=== PATIENT | male | born 1970 | race Hispanic/Latino ===

== ENCOUNTER 2016-10-16 17:49 | Inpatient (IN) | payer MEDICAID ==
[2016-10-16 17:49] VITALS: BMI 33.5
[2016-10-16] MEDS ORDERED: Heparin25000 units/250ml 1/2NS 250 ML IV PRN (18:02)
--- NOTE | 2016-10-16 18:20 | ED PDOC ---
Arrival/HPI - General Chief Complaint: Shortness Of Breath Time Seen by Provider: 10/16/16 17:54 Historian: Patient - History of Present Illness Narrative History of Present Illness (Text): 10/16/16 18:12 A 46 year old male, whose past medical history includes DVT, PE, alcohol and cocaine abuse, presents to the emergency department complaining of shortness of breath since yesterday. Patient states worsening shortness of breath upon walking. He also reports he is on Coumadin, but his INR has been too low. Patient states he has abdominal pain, blurred vision, dizziness but denies any vomiting, dysuria, hematuria, hematochezia or any other complaints at this time. He reports his last cocaine use being 5 days ago. Time/Duration: 24 hours Symptom Onset: Sudden Symptom Course: Unchanged Activities at Onset: Rest Modifying Factors (Text): none Context: Home Associated Symptoms (Text): dizziness, blurry vision, abdominal pain Past Medical History - Provider Review Nursing Documentation Reviewed: Yes - Infectious Disease Hx of Infectious Diseases: None - Tetanus Immunization Tetanus Immunization: Unknown - Cardiac Hx Cardiac Disorders: Yes Hx Peripheral Vascular Disease: Yes Other/Comment: B/L PE and L Leg blood clot - Pulmonary Hx Respiratory Disorders: Yes Hx Pulmonary Embolism: Yes (03/27/16) - Neurological Hx Neurological Disorder: Yes (SYNCOPE 03-25-16) - HEENT Hx HEENT Disorder: No - Renal Hx Renal Disorder: No - Endocrine/Metabolic Hx Endocrine Disorders: No - Hematological/Oncological Hx Blood Disorders: Yes Hx Anemia: Yes Hx Cancer: Yes (melanoma-REFUSED RADIATION [place]) Other/Comment: basal cell 1cm x 0.5cm below left eye - Integumentary Hx Dermatological Disorder: Yes (TATTOOS) Hx Melanoma: Yes - Musculoskeletal/Rheumatological Hx Musculoskeletal Disorders: Yes Hx Falls: Yes - Gastrointestinal Hx Gastrointestinal Disorders: Yes Hx Diverticulitis: Yes (and diverticulitis) Hx Gastroesophageal Reflux: Yes Other/Comment: HIATAL HERNIA, hemorrhoids, cecal polyp - Genitourinary/Gynecological Hx Genitourinary Disorders: No - Psychiatric Hx Psychophysiologic Disorder: Yes (cocaine use hx and etoh use) Hx Depression: No Hx Emotional Abuse: No Hx Physical Abuse: No Hx Substance Use: Yes (COCAINE USE H/O) Other/Comment: pt denies cocaine use and binge drinking, admits to social drinking 3x wk (past triage) - Surgical History Other/Comment: chest stent/left groin stent 1 year ago (previous) - Anesthesia Hx Anesthesia: No - Suicidal Assessment Feels Threatened In Home Enviroment: No Family/Social History - Physician Review Nursing Documentation Reviewed: Yes Family/Social History: No Known Family HX Smoking Status: Never Smoked Hx Alcohol Use: Yes (reports social hx) Frequency of alcohol use: Few days per week Hx Substance Use: Yes (COCAINE USE H/O) Hx Substance Use Treatment: No Allergies/Home Meds Allergies/Adverse Reactions: Allergies iron sucrose complex [From Venofer] Allergy (Severe, Verified 07/23/16 06:23) RASH, ITCHING Home Medications: Home Meds Medication Instructions Recorded Confirmed Levocetirizine Dihydrochloride 5 mg PO DAILY 10/16/16 10/16/16 [Xyzal] Losartan [Cozaar] 25 mg PO DAILY 10/16/16 10/16/16 Review of Systems - Physician Review All systems were reviewed & negative as marked: Yes - Review of Systems Constitutional: Fatigue Eyes: Other (blurred vision) Respiratory: SOB Cardiovascular: Chest Pain, SÁNCHEZ Gastrointestinal: Abdominal Pain. absent: Nausea, Vomiting, Hematochezia Genitourinary Male: absent: Dysuria, Hematuria Neurological: Dizziness Hemo/Lymphatic: absent: Easy Bleeding, Easy Bruising Physical Exam Vital Signs Reviewed: Yes Vital Signs Temp Pulse Resp BP Pulse Ox 10/16/16 21:07 98.4 F 98 H 16 146/91 H 10/16/16 20:52 98.6 F 96 H 20 147/92 H 10/16/16 20:49 98.8 F 108 H 19 151/106 H 10/16/16 18:26 19 99 10/16/16 17:57 98.4 F 111 H 18 152/80 H 100 Temperature: Afebrile Blood Pressure: Normal Pulse: Tachycardic Respiratory Rate: Normal Appearance: Positive for: Well-Appearing, Non-Toxic, Comfortable Pain Distress: None Mental Status: Positive for: Alert and Oriented X 3 - Systems Exam Head: Present: Atraumatic, Normocephalic Pupils: Present: PERRL Conjunctiva: Present: Normal Mouth: Present: Moist Mucous Membranes Pharnyx: Present: Normal. No: ERYTHEMA, EXUDATE Neck: Present: Normal Range of Motion Respiratory/Chest: Present: Clear to Auscultation, Good Air Exchange. No: Respiratory Distress, Accessory Muscle Use Cardiovascular: Present: Tachycardic. No: Murmurs Abdomen: Present: Normal Bowel Sounds. No: Tenderness, Distention, Peritoneal Signs Upper Extremity: Present: Normal Inspection. No: Cyanosis, Edema Lower Extremity: Present: Normal Inspection, Other (LLE bigger than RLE; LLE with excoriation) Neurological: Present: GCS=15, CN II-XII Intact, Speech Normal Skin: Present: Warm, Dry, Normal Color. No: Rashes Psychiatric: Present: Alert, Oriented x 3, Normal Insight, Normal Concentration Medical Decision Making ED Course and Treatment: 10/16/16 18:22 Impression: 46 year old male with shortness of breath. Differential Diagnosis include but are not limited to: DVT/PE vs Cocaine induced chest pain vs pneumonia Plan: -- EKG -- CT angio chest -- Chest xray -- US duplex lower extremity vein bilat -- Reassess and disposition Prior Visits: Notes and results from previous visits were reviewed. Patient reported to the emergency department on 07/23/16 for evaluation of laceration to posterior head. Progress Notes: EKG: Ordered, reviewed, and independently interpreted the EKG. Rate : 117 BPM Rhythm : Sinus Tachycardia Interpretation : No ST/T changes; normal intervals; normal axis Comparison : No previous EKG for comparison. US: positive left popliteal DVT CT angio chest FINDINGS: Pulmonary arteries: No filling defects are seen in the main and proximal pulmonary arteries. The distal branches of the pulmonary arterial system is not optimally opacified secondary to suboptimal opacification and other technical limitation such as motion. Therefore small distal emboli can be obscured. Aorta: The aorta and the great vessels are normal. Negative for dissection. Lungs: Lungs overall clear. No focal lung consolidation, pulmonary infiltrates, no cavitary changes are seen. Pleural space: Unremarkable. No significant effusion. No pneumothorax. Heart: There is mild atherosclerotic calcification of the coronary arteries. No significant pericardial effusion. No evidence of RV dysfunction. Mediastinum: A large hiatal hernia is present. Bones/joints: No acute fracture. No dislocation. Soft tissues: Unremarkable. Lymph nodes: Unremarkable. No enlarged lymph nodes. Gallbladder and bile ducts: The gallbladder is contracted but otherwise normal. Upper abdomen: The remainder of the visualized upper abdominal structures show no significant abnormalities. IMPRESSION: Limited PE assessment due to motion and suboptimal opacification of the more distal vessels. Small distal emboli can be obscured. Large hiatal hernia as described. No dissection, or acute pneumonia. 10/16/16 20:15 Patient needs to be admitted given vitals and low Hemoglobin. He has been consented for blood transfusion 3 units prbc. Patient being continued on Heparin for subtherapeutic INR. Possible DVT and history of DVT, PE. Heparin is preferable so that turned off quickly given anemia. Given findings, case discussed w Dr. Huitron for possible ICU admission. 10/16/16 21:[address] Huitron and agreed to rectal exam, which showed brown stool but guaiac positive. He is hemodynamically stable, and per Dr. Huitron will be placed on tele, not the ICU. Heparin will be d/c as official sono read is negative for acute DVT as is CTA of the chest showing no PE and patient has an IVC filter. - Critical Care Critical Care Minutes: 30 minutes - Lab Interpretations Lab Results: 10/16/16 18:23 10/16/16 18:23 Lab Results 10/16/16 20:00: Urine Opiates Screen Negative, Urine Methadone Screen Negative, Ur Barbiturates Screen Negative, Ur Phencyclidine Scrn Negative, Ur Amphetamines Screen Negative, U Benzodiazepines Scrn Negative, U Oth Cocaine Metabols Positive H, U Cannabinoids Screen Negative 10/16/16 19:29: Blood Type B POSITIVE, Antibody Screen Negative, Crossmatch See Detail, BBK History Checked Patient has bt 10/16/16 18:23: WBC 9.4 D, RBC 2.48 L, Hgb 6.1 L* D, Hct 19.6 L*, MCV 79.0 L, MCH 24.6 L, MCHC 31.1, RDW 17.7 H, Plt Count 244, MPV 8.5, Gran % 66.7, Lymph % (Auto) 22.8, Woodruff % (Auto) 7.1 H, Eos % (Auto) 3.0, Baso % (Auto) 0.4, Gran # 6.30, Lymph # 2.2, Woodruff # 0.7 H, Eos # 0.3, Baso # 0.04, PT 16.9 H, INR 1.56 H, APTT 25.4, Sodium 138, Potassium 4.0, Chloride 105, Carbon Dioxide 24, Anion Gap 13, BUN 22 H, Creatinine 1.0, Est GFR ( Amer) > 60, Est GFR (Non-Af Amer) > 60, Random Glucose 108, Calcium 8.2 L, Magnesium 1.9, Total Bilirubin 0.4, AST 31, ALT 38, Alkaline Phosphatase 42, Lactate Dehydrogenase 681, Total Creatine Kinase 403 H, CK-MB (CK-2) 2.2, CK-MB (CK-2) % Cancelled, Troponin I < 0.01, NT-Pro-B Natriuret Pep 72.6, Total Protein 6.6, Albumin 3.6, Globulin 3.0 , Albumin/Globulin Ratio 1.2, Lipase 270, Alcohol, Quantitative < 10 I have reviewed the lab results: Yes - RAD Interpretation Radiology Orders: 10/16/16 18:00 DUPLEX LOWER EXTRM VEIN BILAT [US] Stat 10/16/16 18:01 CHEST PORTABLE [RAD] Stat 10/16/16 18:02 ANGIO CHEST PE PROTOCOL [CT] Stat Cargoman: ED Physician - EKG Interpretation Interpreted by ED Physician: Yes Type: 12 lead EKG - Medication Orders Current Medication Orders: Heparin Sodium/Sodium Chloride (Heparin 60909 Units/250ml 1/2 Normal Saline) 250 mls @ 19.595 mls/hr IV .[id number] PRN; Protocol; 18 UNITS/KG/HR PRN Reason: ADJUST RATE PER PROTOCOL Last Admin: 10/16/16 18:34 Dose: 19.595 MLS/HR Titration Intervention Document 10/16/16 18:34 SE (Rec: 10/16/16 18:34 [id number]) Titration Intake Container Volume 250 Titration Dosing Titration Dose 18 IV Rate 19.595 Intake/Decrease Start eMAR Start Stop Document 10/16/16 18:34 SE (Rec: 10/16/16 18:34 [id number]) Intravenous Solution Start Date 10/16/16 Start Time 18:34 Losartan Potassium (Cozaar) 25 mg PO DAILY SISSY Pantoprazole Sodium (Protonix Ec Tab) 40 mg PO ACB SISSY Discontinued Medications Heparin Sodium (Porcine) (Heparin) 8,700 units IV ONCE ONE PRN Reason: Protocol Stop: 10/16/16 18:03 Last Admin: 10/16/16 18:31 Dose: 8,700 UNITS Comments: medical engineer prior to lab 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 I have reviewed the chart and agree that the record accurately reflects my personal performance of the history, physical exam, medical decision making, and the department course for this patient. I have also personally directed, reviewed, and agree with the discharge instructions and disposition. Disposition/Present on Arrival - Present on Arrival Any Indicators Present on Arrival: Yes History of DVT/PE: Yes History of Uncontrolled Diabetes: No Urinary Catheter: No History of Decub. Ulcer: No History Surgical Site Infection Following: None - Disposition Have Diagnosis and Disposition been Completed?: Yes Diagnosis: Secondary anemia, Cocaine abuse Disposition: HOSPITALIZED Disposition Time: 21:20 Patient Plan: Admission, Telemetry Patient Problems: Current Active Problems Problem Status Diagnosed Chest pain Acute Drug use Acute Laceration of head Acute Loss of consciousness Acute Subtherapeutic anticoagulation Acute Condition: SERIOUS
[2016-10-16 18:32] LABS: ADD MANUAL DIFF? NO
[2016-10-16 18:51] LABS: ALB/GLOB RATIO 1.2 (1.1-1.8); ALKALINE PHOSPHATASE 42 U/L (38-133); ALT/SGPT 38 U/L (7-56); AST/SGOT 31 U/L (15-59); BILIRUBIN,TOTAL 0.4 mg/dL (0.2-1.3); BLOOD UREA NITROGEN 22 mg/dL (7-21); CALCIUM 8.2 mg/dL (8.4-10.5); CARBON DIOXIDE 24 mmol/L (21-33); CHLORIDE 105 mmol/L (98-107); GFR AFRICAN-AMERICAN > 60; GLUCOSE,RANDOM 108 mg/dL (70-110); LIPASE 270 U/L (23-300); MAGNESIUM 1.9 mg/dL (1.7-2.2); SODIUM 138 mmol/L (132-148); TOTAL PROTEIN 6.6 g/dL (5.8-8.3)
[2016-10-16 19:00] LABS: BASO # 0.04 K/mm3 (0.0-2.0); BASO % 0.4 % (0.0-3.0); EOS # 0.3 (0.0-0.7); GRAN % 66.7 % (50.0-68.0); LYMPH # 2.2 (1.2-3.4); LYMPH % 22.8 % (22.0-35.0); MEAN CORPUSCULAR HEMOGLOBIN 24.6 pg (25.0-35.0); MEAN CORPUSCULAR HGB CONC 31.1 g/dl (31.0-37.0); MEAN PLATELET VOLUME 8.5 fl (7.0-11.0); MONO # 0.7 (0.1-0.6); MONO % 7.1 % (1.0-6.0); PLATELET COUNT 244 10^3/uL (120.0-450.0); RED CELL DISTRIBUTION WIDTH 17.7 % (11.5-14.5); WHITE BLOOD COUNT 9.4 10^3/ul (4.5-11.0)
[2016-10-16] MEDS ORDERED: Iohexol 350 MG/100 ML VIAL ONE (19:02)
[2016-10-16 19:04] LABS: TROPONIN I < 0.01 ng/mL
[2016-10-16 19:06] LABS: INR 1.56 (0.93-1.08); PARTIAL THROMBOPLASTIN TIME 25.4 Seconds (23.7-30.8)
[2016-10-16 19:08] LABS: HEMATOCRIT 19.6 % (42.0-52.0)
--- NOTE | 2016-10-16 19:51 | US ---
HISTORY: Leg pain and swelling. Evaluate for DVT PHYSICIAN(S): Jose Cantrell MD. TECHNIQUE: Duplex sonography and color-flow Doppler with graded compression were used to evaluate the deep venous systems of both lower extremities. FINDINGS: There post thrombotic changes noted in the partially recannulized left popliteal vein. The left femoral vein and left common femoral vein are patent and compressible. There is no sonographic evidence for deep venous thrombosis the visualized segments of the right lower extremity IMPRESSION: Extensive post phlebitic changes in the left popliteal vein.
--- NOTE | 2016-10-16 21:30 | CP.PCM.HP ---
<Beth Vora - Last Filed: 10/16/16 22:14> History of Present Illness - History of Present Illness History of Present Illness: This is a 45Y M with PMH HTN, L DVT, PE s/p IVC filter, GERD, Basal cell ca, gastritis and hiatal hernia who came to the ED for SOB that has worsened over the past 3 days. He reports that the SOB is worse with exertion and better with rest. The patient also states he gets dizzy when getting up out of bed. He has had this before in March 2016 when he was admitted for a PE. The patient reports also increased L leg swelling and redness for the past month, which has decreased in size. He also reports having increased abdominal pain, nausea, vomiting and diarrhea for the past 3-4 weeks. These symptoms have been getting worse over time. He reports that every time he eats he will either throw it up or have "explosive" diarrhea. The stool is noted to be very dark in color and there is no blood noted in his vomit. He has diarrhea multiple times per day. As per the abdominal pain, it is located in the epigastric region. He reports his pain, n/v are worse with food. He denies any weight loss. He says that has never happened before. The patient also says he has chest pain that is located on the L lateral chest around the 4th rib which radiates to his L shoulder. He says he has not had this in the past. Nothing makes it better or worse. He denies having palpitations. He took a ASA 81mg without any relief. In the ED, pt was noted to have Hgb of 6.1. CTA was negative for PE and Duplex US was negative for DVT. ROS: + SOB, dyspnea on exertion, n/v/d, dark stool, dizziness, CP, leg edema, vision changes. Denies fever, chills, palpitations, weight loss, numbness/tingling PMH: HTN, L DVT, PE s/p IVC filter, GERD, Basal cell ca, gastritis and hiatal hernia PSH: IVC filter Home meds: Coumadin 4mg BID, Cozaar 25mg qd, Protonix 40mg qd All: Venofer- rash SH: Denies tobacco use. Drinks 4-10 (7oz) beers per day. Last drink Saturday. Denies drug use (+ for cocaine on UDS) FH: Mom- from lung cancer. Father- healthy, Sister- DM PMD: Dr. Roberts Present on Admission - Present on Admission Any Indicators Present on Admission: Yes History of DVT/PE: Yes Review of Systems - Review of Systems Review of Systems: As per HPI Past Patient History - Infectious Disease Hx of Infectious Diseases: None - Tetanus Immunizations Tetanus Immunization: Unknown - Past Medical History & Family History Past Medical History?: Yes - Past Social History Smoking Status: Never Smoked Alcohol: > 2 Drinks/Day Drugs: Denies, Cocaine Home Situation {Lives}: With Family - CARDIAC Hx Cardiac Disorders: Yes Hx Peripheral Vascular Disease: Yes Other/Comment: B/L PE and L Leg blood clot - PULMONARY Hx Respiratory Disorders: Yes Hx Pulmonary Embolism: Yes (03/27/16) - NEUROLOGICAL Hx Neurological Disorder: Yes (SYNCOPE 03-25-16) - HEENT Hx HEENT Problems: No - RENAL Hx Chronic Kidney Disease: No - ENDOCRINE/METABOLIC Hx Endocrine Disorders: No - HEMATOLOGICAL/ONCOLOGICAL Hx Blood Disorders: Yes Hx Anemia: Yes Hx Cancer: Yes (melanoma-REFUSED RADIATION [place]) Other/Comment: basal cell 1cm x 0.5cm below left eye - INTEGUMENTARY Hx Dermatological Problems: Yes (TATTOOS) Hx Melanoma: Yes - MUSCULOSKELETAL/RHEUMATOLOGICAL Hx Musculoskeletal Disorders: Yes Hx Falls: Yes - GASTROINTESTINAL Hx Gastrointestinal Disorders: Yes Hx Diverticulitis: Yes (and diverticulitis) Hx Gastroesophageal Reflux: Yes Other/Comment: HIATAL HERNIA, hemorrhoids, cecal polyp - GENITOURINARY/GYNECOLOGICAL Hx Genitourinary Disorders: No - PSYCHIATRIC Hx Psychophysiologic Disorder: Yes (cocaine use hx and etoh use) Hx Depression: No Hx Emotional Abuse: No Hx Physical Abuse: No Hx Substance Use: Yes (COCAINE USE H/O) Other/Comment: pt denies cocaine use and binge drinking, admits to social drinking 3x wk (past triage) - SURGICAL HISTORY Other/Comment: chest stent/left groin stent 1 year ago (previous) - ANESTHESIA Hx Anesthesia: No Meds Allergies/Adverse Reactions: Allergies Allergy/AdvReac Type Severity Reaction Status Date / Time iron sucrose complex Allergy Severe RASH, Verified 07/23/16 06:23 [From Venofer] ITCHING Physical Exam - Constitutional Appears: No Acute Distress - Head Exam Head Exam: ATRAUMATIC, NORMAL INSPECTION, NORMOCEPHALIC Additional comments: Lesion on L upper cheek under eye (location of basal cell carcinoma) - Eye Exam Eye Exam: Normal appearance, PERRL Pupil Exam: NORMAL ACCOMODATION, PERRL - ENT Exam ENT Exam: Mucous Membranes Moist - Respiratory Exam Respiratory Exam: Clear to Auscultation Bilateral, NORMAL BREATHING PATTERN. absent: Rales, Rhonchi, Wheezes - Cardiovascular Exam Cardiovascular Exam: Tachycardia, REGULAR RHYTHM, +S1, +S2. absent: Gallop, Rubs, Systolic Murmur - GI/Abdominal Exam GI & Abdominal Exam: Distended, Hyperactive Bowel Sounds, Soft, Tenderness ( epigastric). absent: Mass, Rebound, Rigid - Rectal Exam Rectal Exam: NORMAL INSPECTION. absent: Black Stool, Hemorrhoids, Fecal Impaction Additional comments: Brown stool- hemeoccult positive - Extremities Exam Extremities exam: Positive for: pedal edema (+1 pitting edema on L ), tenderness (L leg tenderness) Additional comments: L leg redness below knee - Neurological Exam Neurological exam: Alert, CN II-XII Intact, Oriented x3 - Psychiatric Exam Psychiatric exam: Normal Affect, Normal Mood - Skin Skin Exam: Dry, Intact, Normal Color, Warm Results - Vital Signs Recent Vital Signs: Last Vital Signs Temp 98.6 F 10/16/16 20:52 Pulse 96 H 10/16/16 20:52 Resp 20 10/16/16 20:52 BP 147/92 H 10/16/16 20:52 Pulse Ox 99 10/16/16 18:26 - Labs Result Diagrams: 10/16/16 18:23 10/16/16 18:23 - EKG Data EKG Interpreted by: Myself EKG shows normal: Sinus rhythm Rate: Tachycardia Assessment & Plan - Assessment and Plan (Free Text) Assessment: This is a 45Y M with PMH HTN, L DVT, PE s/p IVC filter, GERD, Basal cell ca, gastritis and hiatal hernia admitted for anemia and suspected GI bleed. Plan: 1. Anemia (symptomatic) - possibly secondary to GI bleed - Hgb 6.1 - Transfusing 2 PRBC - Will recheck CBC after transfusion - GI consulted- Dr. Villanueva - Hemeoccult positive - NPO - Protonix drip 2. DVT/PE - Pt has IVC filter - CTA showed no evidence of DVT - LE doppler showed post - Hemeoccult positive- Heparin stopped - Coumadin on hold - INR noted to be subtherapeutic - Will resume when cleared by GI 3. Chest pain - EKG showed sinus tach - troponin neg x 1- will repeat in AM - Pt counseled on cocaine cessation 4. HTN - Continue Cozaar GI ppx: Protonix drip DVT ppx: SCDs Case seen, reviewed and discussed with attending Riddhi Vora PGY1 - Date & Time Date: 10/16/16 Time: 22:13 <Wagner Huitron Q - Last Filed: 10/16/16 23:06> Results - Vital Signs Recent Vital Signs: Last Vital Signs Temp 98.4 F 10/16/16 21:07 Pulse 98 H 10/16/16 21:07 Resp 16 10/16/16 21:07 BP 146/91 H 10/16/16 21:07 Pulse Ox 99 10/16/16 18:26 - Labs Result Diagrams: 10/16/16 18:23 10/16/16 18:23 Attending/Attestation - Attestation I have personally seen and examined this patient.: Yes I have fully participated in the care of the patient.: Yes I have reviewed all pertinent clinical information: Yes Notes (Text): 10/16/16 23:02 I agree with the above mentioned note by Dr. Vora with the following additions/exceptions: 46 y/o male with a PMHx Htn, DVT/PE (Dx'ed in 03/2016) s/p IVC filter, noncompliance with medications (Coumadin) and cocaine abuse presents to the ED with the complaint of shortness of breath. Pt reports SÁNCHEZ when walking 1 block which has been progressing over the past few weeks, which caused him to come in to the ED today. Pt also reports having episodes of black stools, the last one was 5 days ago, over the past few months. He was admitted for bright red blood per rectum last year and underwent an EGD/Colonoscopy which showed non-bleeding ulcers. He will be admitted to the telemetry floor, transfused with 2 units of PRBC due to his hgb of 6 (down from 12 on his last visit); Protonix drip and will be placed on telemetry for further monitoring. I was initially asked to see this patient for a possible ICU admission, however he is hemodynamically stable, shows no signs of active bleeding and does not require aggressive ICU level care at this time.
[2016-10-17] MEDS: Pantoprazole 40mg/100ml IVPB 100 ML IVPB SCH ×4 (00:50→16:30)
[2016-10-17 01:23] LABS: MEAN CELL VOLUME 79.1 fL (80.0-105.0); MEAN CORPUSCULAR HEMOGLOBIN 26.4 pg (25.0-35.0); MEAN CORPUSCULAR HGB CONC 33.3 g/dl (31.0-37.0); MEAN PLATELET VOLUME 7.8 fl (7.0-11.0); RED CELL DISTRIBUTION WIDTH 17.1 % (11.5-14.5); WHITE BLOOD COUNT 9.2 10^3/ul (4.5-11.0)
[2016-10-17 01:33] LABS: HEMATOCRIT 20.4 % (42.0-52.0)
[2016-10-17] MEDS ORDERED: Sodium Chloride 0.9% 1,000 ML IV SCH ×2 (02:00→07:45)
[2016-10-17 05:58] VITALS: O2SAT 97
[2016-10-17] MEDS ORDERED: Pantoprazole 40 mg EC Tab PO SCH (07:30)
--- NOTE | 2016-10-17 08:39 | CT ---
PROCEDURE: CT Chest with contrast (Pulmonary Angiogram) HISTORY: cp, sob - r/o PE COMPARISON: June 20 1016 TECHNIQUE: Axial computed tomography images were obtained of the chest in the pulmonary arterial phase of enhancement. Coronal and sagittal reformatted images were created and reviewed. Intravenous contrast dose: Visipaque 320 100 mL Radiation dose: Total exam DLP = 813 mGy-cm. This CT exam was performed using one or more of the following dose reduction techniques: Automated exposure control, adjustment of the mA and/or kV according to patient size, and/or use of iterative reconstruction technique. FINDINGS: PULMONARY ARTERIES: The prior bilateral central filling defects consistent with pulmonary emboli just distal to the tracheal bifurcation have largely re- cannulae eyes to. Minimal residual tiny emboli here are still possible. Certainly marked improvement has occurred in the resolution of the prior much larger emboli. No interval emboli appreciated AORTA: No acute findings. No thoracic aortic aneurysm. LUNGS: Unremarkable. No nodule, mass or pulmonary consolidation. PLEURAL SPACES: Unremarkable. No effusion or pneuomothorax. HEART: Unremarkable. No cardiomegaly. No significant pericardial effusion. LYMPH NODES: No lymphadenopathy. BONES, CHEST WALL: Unremarkable. No fracture or destructive lesion OTHER FINDINGS: Re- noted is a hiatal hernia this is quite large within air-fluid level hernia with being approximately 9 cm the cephalo caudal extent being approximately 8 cm and the AP dimension approximately 7 cm. Some mass effect on the left atrium is suggested. IMPRESSION: Interval improvement in the prior bilateral central pulmonary emboli as described above. No interval large central pulmonary emboli appreciated. Re- noted is a hiatal hernia - please note that this is quite large and has some mass effect on the left atrium. Follow-up for this is advised
[2016-10-17 08:43] LABS: ADD MANUAL DIFF? NO
[2016-10-17 08:47] LABS: BASO # 0.02 K/mm3 (0.0-2.0); BASO % 0.3 % (0.0-3.0); EOS # 0.3 (0.0-0.7); EOS % 5.5 % (1.5-5.0); GRAN % 56.7 % (50.0-68.0); HEMATOCRIT 24.3 % (42.0-52.0); LYMPH # 1.8 (1.2-3.4); LYMPH % 28.4 % (22.0-35.0); MEAN CELL VOLUME 79.9 fL (80.0-105.0); MEAN CORPUSCULAR HGB CONC 32.5 g/dl (31.0-37.0); MONO # 0.6 (0.1-0.6); MONO % 9.1 % (1.0-6.0); PLATELET COUNT 165 10^3/uL (120.0-450.0); WHITE BLOOD COUNT 6.2 10^3/ul (4.5-11.0)
[2016-10-17 08:54] LABS: INR 1.6 (0.93-1.08)
[2016-10-17 09:15] LABS: BLOOD UREA NITROGEN 16 mg/dL (7-21); CARBON DIOXIDE 23 mmol/L (21-33); CHLORIDE 107 mmol/L (95-110); GFR AFRICAN-AMERICAN > 60; GLUCOSE,RANDOM 94 mg/dL (70-110); SODIUM 138 mmol/L (132-148)
--- NOTE | 2016-10-17 10:02 | RAD ---
HISTORY: cp, sob; h/o PE COMPARISON: 06/20/2016 FINDINGS: LUNGS: No active pulmonary disease. PLEURA: No significant pleural effusion identified, no pneumothorax apparent. CARDIOVASCULAR: Normal. OSSEOUS STRUCTURES: No significant abnormalities. VISUALIZED UPPER ABDOMEN: Small hiatal hernia OTHER FINDINGS: None. IMPRESSION: No active disease.
--- NOTE | 2016-10-17 10:34 | CP.PCM.PN ---
Subjective - Date & Time of Evaluation Date of Evaluation: 10/17/16 Time of Evaluation: 08:05 - Subjective Subjective: Pt seen and evaluated at the bedside. Pt c/o of N and has lessening epigastric pain. Denies current chest pain, and denies SOB currently. Afebrile thus far. 3 PRBC tranfusions overnight. Objective - Vital Signs/Intake and Output Vital Signs (last 24 hours): Temp Pulse Resp BP Pulse Ox 98.3 F 76 16 144/73 97 10/17/16 05:57 10/17/16 05:57 10/17/16 05:57 10/17/16 05:57 10/17/16 05:57 Intake and Output: 10/17/16 10/17/16 06:59 18:59 Intake Total 872 Output Total 0 Balance 872 - Medications Medications: Current Medications Pantoprazole Sodium (Protonix 40mg Ivpb) 100 mls @ 20 mls/hr IVPB .Q5H SISSY Last Admin: 10/17/16 04:40 Dose: 20 mls/hr Sodium Chloride (Sodium Chloride 0.9%) 1,000 mls @ 100 mls/hr IV .Q10H SISSY Last Admin: 10/17/16 08:07 Dose: 100 mls/hr - Labs Labs: 10/17/16 08:40 10/17/16 08:40 PT 17.3 Seconds (9.9-11.8) H 10/17/16 08:40 INR 1.60 (0.93-1.08) H 10/17/16 08:40 APTT 25.4 Seconds (23.7-30.8) 10/16/16 18:23 - Constitutional Appears: Non-toxic, No Acute Distress - Head Exam Head Exam: ATRAUMATIC, NORMOCEPHALIC - Eye Exam Eye Exam: EOMI, Normal appearance - ENT Exam ENT Exam: Mucous Membranes Moist - Respiratory Exam Respiratory Exam: Clear to Ausculation Bilateral, NORMAL BREATHING PATTERN - Cardiovascular Exam Cardiovascular Exam: +S1, +S2. absent: Bradycardia - GI/Abdominal Exam GI & Abdominal Exam: Soft. absent: Tenderness - Exam External exam: absent: Ecchymosis, Erythema - Extremities Exam Extremities Exam: absent: Tenderness - Neurological Exam Neurological Exam: Alert, Awake - Skin Skin Exam: Intact, Normal Color
[2016-10-17 12:02] VITALS: BP 138/85; RESP 20; TEMP 98.5
[2016-10-17 16:36] VITALS: PULSE 80
--- NOTE | 2016-10-17 18:06 | CARD ---
APPROVED REPORT EKG Measurement Heart [id number] [place] [id number] [id number] <Conclusion> Sinus tachycardia Otherwise normal ECG
--- NOTE | 2016-10-17 22:19 | CP.PCM.DIS ---
Provider - Provider Date of Admission: 10/16/16 21:02 Attending physician: Lucie Schmidt MD Primary care physician: Brigid Roberts MD Time Spent in preparation of Discharge (in minutes): 35 Hospital Course - Lab Results Lab Results: Most Recent Lab Values WBC 6.2 10^3/ul (4.5-11.0) D 10/17/16 08:40 RBC 3.04 10^6/uL (3.5-6.1) L 10/17/16 08:40 Hgb 7.9 gm/dL (14.0-18.0) L 10/17/16 08:40 Hct 24.3 % (42.0-52.0) L 10/17/16 08:40 MCV 79.9 fL (80.0-105.0) L 10/17/16 08:40 MCH 26.0 pg (25.0-35.0) 10/17/16 08:40 MCHC 32.5 g/dl (31.0-37.0) 10/17/16 08:40 RDW 17.0 % (11.5-14.5) H 10/17/16 08:40 Plt Count 165 10^3/uL (120.0-450.0) 10/17/16 08:40 MPV 8.0 fl (7.0-11.0) 10/17/16 08:40 Gran % 56.7 % (50.0-68.0) 10/17/16 08:40 Lymph % (Auto) 28.4 % (22.0-35.0) 10/17/16 08:40 [place] % (Auto) 9.1 % (1.0-6.0) H 10/17/16 08:40 Eos % (Auto) 5.5 % (1.5-5.0) H 10/17/16 08:40 Baso % (Auto) 0.3 % (0.0-3.0) 10/17/16 08:40 Gran # 3.50 (1.4-6.5) 10/17/16 08:40 Lymph # 1.8 (1.2-3.4) 10/17/16 08:40 [place] # 0.6 (0.1-0.6) 10/17/16 08:40 Eos # 0.3 (0.0-0.7) 10/17/16 08:40 Baso # 0.02 K/mm3 (0.0-2.0) 10/17/16 08:40 PT 17.3 Seconds (9.9-11.8) H 10/17/16 08:40 INR 1.60 (0.93-1.08) H 10/17/16 08:40 APTT 25.4 Seconds (23.7-30.8) 10/16/16 18:23 Sodium 138 mmol/L (132-148) 10/17/16 08:40 Potassium 4.0 mmol/L (3.6-5.0) 10/17/16 08:40 Chloride 107 mmol/L (95-110) 10/17/16 08:40 Carbon Dioxide 23 mmol/L (21-33) 10/17/16 08:40 Anion Gap 12 (10-20) 10/17/16 08:40 BUN 16 mg/dL (7-21) 10/17/16 08:40 Creatinine 0.9 mg/dL (0.5-1.4) 10/17/16 08:40 Est GFR ( Amer) > 60 10/17/16 08:40 Est GFR (Non-Af Amer) > 60 10/17/16 08:40 Random Glucose 94 mg/dL (70-110) 10/17/16 08:40 Calcium 8.0 mg/dL (8.4-10.5) L 10/17/16 08:40 Magnesium 1.9 mg/dL (1.7-2.2) 10/16/16 18:23 Total Bilirubin 0.4 mg/dL (0.2-1.3) 10/16/16 18:23 AST 31 U/L (15-59) 10/16/16 18:23 ALT 38 U/L (7-56) 10/16/16 18:23 Alkaline Phosphatase 42 U/L (38-133) 10/16/16 18:23 Lactate Dehydrogenase 681 U/L (333-699) 10/16/16 18:23 Total Creatine Kinase 403 U/L (35-230) H 10/16/16 18:23 CK-MB (CK-2) 2.2 ng/mL (0.0-3.6) 10/16/16 18:23 CK-MB (CK-2) % Cancelled 10/16/16 18: Troponin I < 0.01 ng/mL 10/17/16 01:10 NT-Pro-B Natriuret Pep 72.6 pg/mL (0-450) 10/16/16 18: Total Protein 6.6 g/dL (5.8-8.3) 10/16/16 18: Albumin 3.6 g/dL (3.0-4.8) 10/16/16: Globulin 3.0 gm/dL 10/16/16 18: Albumin/Globulin Ratio 1.2 (1.1-1.8) 10/16/16: Lipase 270 U/L (23-300) 10/16/16: Urine Opiates Screen Negative (NEGATIVE) 10/16/16 20:00 Urine Methadone Screen Negative (NEGATIVE) 10/16/16 20:00 Ur Barbiturates Screen Negative (NEGATIVE) 10/16/16 20:00 Ur Phencyclidine Scrn Negative (NEGATIVE) 10/16/16 20:00 Ur Amphetamines Screen Negative (NEGATIVE) 10/16/16 20:00 U Benzodiazepines Scrn Negative (NEGATIVE) 10/16/16 20:00 U Oth Cocaine Metabols Positive (NEGATIVE) H 10/16/16 20:00 U Cannabinoids Screen Negative (NEGATIVE) 10/16/16 20:00 Alcohol, Quantitative < 10 mg/dL (0-10) 10/16/16 18: Blood Type B POSITIVE 10/16/16 19:29 Antibody Screen Negative 10/16/16 19:29 Crossmatch See Detail 10/16/16 19:29 BBK History Checked Patient has bt 10/16/16 19:29 - Hospital Course Hospital Course: 45Y M with PMHx of HTN, L DVT, PE s/p IVC filter, GERD, Basal cell ca, gastritis and hiatal hernia who came to the ED for SOB that has worsened over the past 3 days. He reports that the SOB is worse with exertion and better with rest. The patient also states he gets dizzy when getting up out of bed. He has had this before in March 2016 when he was admitted for a PE. The patient reports also increased L leg swelling and redness for the past month, which has decreased in size. He also reports having increased abdominal pain, nausea, vomiting and diarrhea for the past 3-4 weeks. Initial hemoglobin of 6.1 inpatient telemetry, anemia Pt had 3 units of PRBC transfused, and hemoglobin improved to 7.9. Pt was to have EGD later on in day or the next AM, but pt refused to wait, so pt left and signed AMA in serious condition after discussing the risks of leaving and benefits of staying in the hospital while with a hemoglobin of 7.9. Discharge Exam - Additional Findings Additional findings: - Constitutional Appears: Non-toxic, No Acute Distress - Head Exam Head Exam: ATRAUMATIC, NORMOCEPHALIC - Eye Exam Eye Exam: EOMI, Normal appearance - ENT Exam ENT Exam: Mucous Membranes Moist - Respiratory Exam Respiratory Exam: Clear to Ausculation Bilateral, NORMAL BREATHING PATTERN - Cardiovascular Exam Cardiovascular Exam: +S1, +S2. absent: Bradycardia - GI/Abdominal Exam GI & Abdominal Exam: Soft. absent: Tenderness - Exam External exam: absent: Ecchymosis, Erythema - Extremities Exam Extremities Exam: absent: Tenderness - Neurological Exam Neurological Exam: Alert, Awake - Skin Skin Exam: Intact, Normal Color Discharge Plan - Follow Up Plan Condition: SERIOUS Disposition: AGAINST MEDICAL ADVICE Referrals: Brigid Roberts MD [Primary Care Provider] -
== END 2016-10-17 16:58 | disposition left against medical advice (07) | DRG 395 ==
LOC: ED 17:49 → ERH 21:02 → 2RNO 10-17 00:18
PROVIDERS: ADMIT Internal Medicine; ATTEND Internal Medicine
PROC: 30233N1 Transfusion of Nonautologous Red Blood Cells into Peripheral Vein, Percutaneous Approach (ICD-10-PCS; principal; 2016-10-16)
DX: D64.9 Anemia, unspecified (principal); F14.10 Cocaine abuse, uncomplicated; I10 Essential (primary) hypertension; C44.91 Basal cell carcinoma of skin, unspecified; K21.9 Gastro-esophageal reflux disease without esophagitis; K29.70 Gastritis, unspecified, without bleeding; K44.9 Diaphragmatic hernia without obstruction or gangrene; R07.9 Chest pain, unspecified; Z86.718 Personal history of other venous thrombosis and embolism; Z79.01 Long term (current) use of anticoagulants; Z86.711 Personal history of pulmonary embolism; Z91.14 Patient's other noncompliance with medication regimen

== ENCOUNTER 2016-12-06 00:27 | Inpatient (IN) | payer MEDICAID ==
[2016-12-06 00:28] VITALS: BMI 33.5
--- NOTE | 2016-12-06 00:52 | ED PDOC ---
Arrival/HPI - General Chief Complaint: Altered Mental Status Time Seen by Provider: 12/06/16 00:34 Historian: Patient - History of Present Illness Narrative History of Present Illness (Text): 12/06/16 00:51 Dave Fall is a 46 year old male, whose past medical history includes hypertension, DVT, PE, s/p IVC filter, anemia, GERD, basal cell cancer , GERD, and cocaine abuse, who presents to the Emergency department status post syncopal episode tonight. Patient states he had a syncopal episode at 21:00 yesterday, fell, and hit his head. Patient reports he has also been experiencing chest pain and shortness of breath. Patient regularly takes Lovenox. Patient also notes he had left lower extremity swelling. Patient denies any fever, chills, nausea, vomiting, diarrhea, urinary symptoms, back pain, neck pain, headache, dizziness, or any other complaints. Time/Duration: Other (today) Symptom Onset: Gradual Symptom Course: Unchanged Activities at Onset: Rest, Light Context: Home Past Medical History - Provider Review Nursing Documentation Reviewed: Yes - Infectious Disease Hx of Infectious Diseases: None - Tetanus Immunization Tetanus Immunization: Unknown - Cardiac Hx Cardiac Disorders: Yes Hx Hypertension: Yes Hx Peripheral Vascular Disease: Yes - Pulmonary Hx Respiratory Disorders: No - Neurological Hx Neurological Disorder: Yes (SYNCOPE 03-25-16) - HEENT Hx HEENT Disorder: No - Renal Hx Renal Disorder: No - Endocrine/Metabolic Hx Endocrine Disorders: No - Hematological/Oncological Hx Blood Disorders: Yes Hx Anemia: Yes 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) - Integumentary Hx Dermatological Disorder: Yes (TATTOOS) Hx Melanoma: Yes - Musculoskeletal/Rheumatological Hx Musculoskeletal Disorders: Yes Hx Degenerative Joint Disease: Yes Hx Falls: Yes Other/Comment: CERVICAL AND LUMBAR RADICULOPATHY - Gastrointestinal Hx Gastrointestinal Disorders: Yes Hx Diverticulitis: Yes Hx Gastroesophageal Reflux: Yes Other/Comment: GASTRITIS, HIATAL HERNIA - Genitourinary/Gynecological Hx Genitourinary Disorders: No - Psychiatric Hx Psychophysiologic Disorder: Yes (cocaine use) Hx Depression: No Hx Emotional Abuse: No Hx Physical Abuse: No Hx Substance Use: Yes (denies-tox screen +cocaine) Other/Comment: pt denies cocaine use and binge drinking, admits to social drinking 3x wk - Surgical History Other/Comment: IVC FILTER - Anesthesia Hx Anesthesia: No - Suicidal Assessment Feels Threatened In Home Enviroment: No Family/Social History - Physician Review Nursing Documentation Reviewed: Yes Family/Social History: No Known Family HX Smoking Status: Never Smoked Hx Alcohol Use: Yes (socially/about 2-3x/wk) Hx Substance Use: Yes (denies-tox screen +cocaine) Hx Substance Use Treatment: No Allergies/Home Meds Allergies/Adverse Reactions: Allergies iron sucrose complex [From Venofer] Allergy (Severe, Verified 07/23/16 06:23) RASH, ITCHING Home Medications: Home Meds Medication Instructions Recorded Confirmed Losartan [Cozaar] 25 mg PO DAILY 10/16/16 10/16/16 Pantoprazole Sodium [Protonix] 40 mg PO DAILY 10/17/16 10/17/16 Warfarin [Coumadin] 8 mg PO DAILY 10/17/16 10/17/16 Review of Systems - Physician Review All systems were reviewed & negative as marked: Yes - Review of Systems Constitutional: Normal. absent: Fevers Eyes: Normal ENT: Normal Respiratory: SOB. absent: Cough Cardiovascular: Chest Pain, Syncope Gastrointestinal: Normal. absent: Abdominal Pain, Diarrhea, Nausea, Vomiting Genitourinary Male: Normal. absent: Dysuria, Frequency, Hematuria, Urinary Output Changes Musculoskeletal: Other (+left lower extremity swelling). absent: Back Pain, Neck Pain Skin: Normal. absent: Rash Neurological: Normal. absent: Headache, Dizziness Endocrine: Normal Hemo/Lymphatic: Normal Psychiatric: Normal Physical Exam Vital Signs Reviewed: Yes Vital Signs Temp Pulse Resp BP Pulse Ox 12/06/16 05:16 94 H 16 125/73 98 12/06/16 04:25 98.6 F 93 H 18 118/58 L 12/06/16 03:40 98.5 F 99 H 16 105/48 L 12/06/16 03:23 98.6 F 97 H 16 114/61 12/06/16 02:44 96 H 16 141/58 L 100 12/06/16 02:00 97 H 16 109/47 L 100 12/06/16 00:40 98.2 F 110 H 18 106/84 99 Temperature: Afebrile Blood Pressure: Normal Pulse: Regular Respiratory Rate: Normal Appearance: Positive for: Well-Appearing, Non-Toxic, Comfortable Pain Distress: None Mental Status: Positive for: Alert and Oriented X 3 - Systems Exam Head: Present: Atraumatic, Normocephalic Pupils: Present: PERRL Extroacular Muscles: Present: EOMI Conjunctiva: Present: Normal Mouth: Present: Moist Mucous Membranes Neck: Present: Normal Range of Motion Respiratory/Chest: Present: Clear to Auscultation, Good Air Exchange. No: Respiratory Distress, Accessory Muscle Use Cardiovascular: Present: Regular Rate and Rhythm, Normal S1, S2. No: Murmurs Abdomen: Present: Normal Bowel Sounds. No: Tenderness, Distention, Peritoneal Signs Back: Present: Normal Inspection Upper Extremity: Present: Normal Inspection. No: Cyanosis, Edema Lower Extremity: Present: Swelling (Swelling to left lower extremity). No: Edema Neurological: Present: GCS=15, CN II-XII Intact, Speech Normal Skin: Present: Warm, Dry, Normal Color. No: Rashes Psychiatric: Present: Alert, Oriented x 3, Normal Insight, Normal Concentration Medical Decision Making ED Course and Treatment: 12/06/16 00:51 Impression: 46 year old male presents s/p syncopal episode with chest pain, shortness of breath, and left lower extremity swelling. Differential Diagnosis include but are not limited to: anemia vs. syncope Plan: -- CT Head w/o contrast -- EKG -- Chest X-ray -- Labs, cardiac enzymes, VBG, BNP, blood cultures, blood type and screen -- UA -- Reassess and disposition Prior Visits: Notes and results from previous visits were reviewed. On 10/16/2016, pt was seen in the Emergency department for shortness of breath. Pt was admitted to the hospital for further evaluation. Progress Notes: Reviewed EKG, NSR at [address] bpm[address] Non-specific ST/T wave changes. 12/06/16 01:34 Reviewed labs, hemoglobin: 5.3, hematocrit: 17.9. Denies any recent stool changes. Will transfuse pt. 12/06/16 02:57 Reviewed radiology, Chest X-ray shows mild cardiomegaly. CT Head shows: 1. No acute intracranial abnormality. 2. Incidental/non-acute findings are described above. 12/06/16 03:[address] Gallardo, data systems manager, who is aware and agrees to evaluate pt for ICU admission. residential air sealing technician notified. 12/06/16 04:[address] Gallardo, present in Emergency department to evaluate pt, accepts pt in to ICU for anemia under hospitalist service. - Critical Care Critical Care Minutes: 30 minutes Narrative Critical Care (Text): Management of anemia - Lab Interpretations Microbiology Results: Microbiology Results 12/06/16 01:30 Blood-Venous Blood Culture - Preliminary NO GROWTH AFTER 48 HOURS 12/06/16 01:00 Blood-Venous Blood Culture - Preliminary NO GROWTH AFTER 48 HOURS Lab Results: 12/06/16 01:00 12/06/16 01:00 Lab Results 12/06/16 02:43: Urine Color Light yellow, Urine Appearance Clear, Urine pH 6.0, Ur Specific [place] 1.010, Urine Protein Negative, Urine Glucose (UA) Negative, Urine Ketones Negative, Urine Blood Negative, Urine Nitrate Negative, Urine Bilirubin Negative, Urine Urobilinogen 0.2, Ur Leukocyte Esterase Negative 12/06/16 01:00: Blood Type B POSITIVE, Antibody Screen Negative, Crossmatch See Detail, BBK History Checked Patient has bt 12/06/16 01:00: Sodium 136, Chloride 104, Potassium 3.4 L, Carbon Dioxide 19 L, Anion Gap 16, BUN 16, Creatinine 1.1, Est GFR ( Amer) > 60, Est GFR (Non- Af Amer) > 60, Random Glucose 104, Calcium 9.0, Total Bilirubin 0.4, AST 33, ALT 33, Alkaline Phosphatase 46, Lactate Dehydrogenase 555, Total Creatine Kinase 358 H, CK-MB (CK-2) 1.8, CK-MB (CK-2) % Cancelled, Troponin I 0.02 D, NT -Pro-B Natriuret Pep 174, Total Protein 7.1, Albumin 4.0, Globulin 3.1, Albumin/ Globulin Ratio 1.3 12/06/16 01:00: pO2 221 H, VBG pH 7.38, VBG pCO2 32.0 L, VBG HCO3 18.9 L, VBG Total CO2 19.9 L, VBG O2 Sat (Calc) 98.5 H, VBG Base Excess -5.2 L, VBG Potassium 3.5 L, Sodium 138.0, Chloride 109.0 H, Glucose 113 H, Lactate 2.4 H, FiO2 21.0, Venous Blood Potassium 3.5 L 12/06/16 01:00: WBC 7.0, RBC 2.61 L, Hgb 5.3 L* D, Hct 17.9 L*, MCV 68.6 L, MCH 20.3 L, MCHC 29.6 L, RDW 20.5 H, Plt Count 259, MPV 8.1, Gran % 54.9, Lymph % ( Auto) 32.5, [place] % (Auto) 8.6 H, Eos % (Auto) 3.4, Baso % (Auto) 0.6, Gran # 3.83, Lymph # 2.3, [place] # 0.6, Eos # 0.2, Baso # 0.04 12/06/16 01:00: PT 10.6, INR 0.98, APTT 20.5 L I have reviewed the lab results: Yes - RAD Interpretation Narrative RAD Interpretations (Text): Chest X-ray shows mild cardiomegaly CT Head shows: Brain: No intracranial hemorrhage. No mass. No edema. Ventricles: No hydrocephalus. Bones/joints: No acute fracture. Soft tissues: Unremarkable. Sinuses: No acute sinusitis. Mastoid air cells: No mastoid effusion. Orbits: Unremarkable as visualized. IMPRESSION: 1. No acute intracranial abnormality. 2. Incidental/non-acute findings are described above. Radiology Orders: 12/06/16 01:03 HEAD W/O CONTRAST [CT] Stat CHEST PORTABLE [RAD] Stat Shoe Coverer: ED Physician, Radiologist - EKG Interpretation Interpreted by ED Physician: Yes Type: 12 lead EKG - Medication Orders Current Medication Orders: Discontinued Medications Acetaminophen (Tylenol 325mg Tab) 650 mg PO Q6H PRN PRN Reason: Pain, moderate (4-7) Albuterol/Ipratropium (Duoneb 3 Mg/0.5 Mg (3 Ml) Ud) 3 ml IH Q2H PRN PRN Reason: Shortness of Breath Stop: 12/06/16 08:46 Enoxaparin Sodium (Lovenox) 40 mg SC DAILY SISSY PRN Reason: Protocol Last Admin: 12/08/16 10:05 Dose: 40 mg Fentanyl (Fentanyl) Confirm Administered Dose 100 mcg .ROUTE .STK-MED ONE Stop: 12/06/16 12:47 Guaifenesin (Robitussin) 200 mg PO Q4H PRN PRN Reason: Cough and congestion Last Admin: 12/08/16 05:25 Dose: 200 mg Sodium Chloride (Sodium Chloride 0.9%) 1,000 mls @ 100 mls/hr IV .Q10H [facility] Last Admin: 12/06/16 04:56 Dose: 100 mls/hr Pantoprazole Sodium (Protonix 40mg Ivpb) 40 mg in 100 mls @ 20 mls/hr IVPB .Q5H [facility] Last Admin: 12/06/16 09:25 Dose: 20 mls/hr Ceftriaxone Sodium (Rocephin 1 Gram Ivpb) 1 gm in 100 mls @ 100 mls/hr IVPB DAILY SISSY PRN Reason: Protocol Last Admin: 12/08/16 10:04 Dose: 100 mls/hr Azithromycin 250 mg/ Sodium (Chloride) 250 mls @ 167 mls/hr IVPB DAILY [facility] PRN Reason: Protocol Last Admin: 12/06/16 09:26 Dose: Multivitamins/Vitamin C 10 ml/Thiamine HCl 100 mg/ Folic Acid 1 mg/ Sodium Chloride 1,011.2 mls @ 100 mls/hr IV .Q10H7M ONE Stop: 12/06/16 20:41 Multivitamins/Vitamin C 10 ml/Thiamine HCl 100 mg/ Folic Acid 1 mg/ Sodium Chloride 1,011.2 mls @ 100 mls/hr IV .Q10H7M [facility] Stop: 12/09/16 10:36 Last Admin: 12/08/16 01:24 Dose: 100 mls/hr Lidocaine HCl (Lidocaine 1% (20ml)) Confirm Administered Dose 20 ml .ROUTE .STK- MED ONE Stop: 12/06/16 12:48 Lorazepam (Ativan) 2 mg IVP Q3H PRN; Protocol PRN Reason: Anxiety Midazolam HCl (Versed Inj) Confirm Administered Dose 6 mg .ROUTE .STK-MED ONE Stop: 12/06/16 12:48 Ondansetron HCl (Zofran Inj) 4 mg IVP STAT STA Stop: 12/06/16 03:43 Last Admin: 12/06/16 03:59 Dose: 4 mg Ondansetron HCl (Zofran Inj) 4 mg IVP Q6H PRN PRN Reason: Nausea/Vomiting Pantoprazole Sodium (Protonix Inj) 80 mg IVP STAT STA Stop: 12/06/16 04:35 Last Admin: 12/06/16 04:58 Dose: 80 mg Pantoprazole Sodium (Protonix Ec Tab) 40 mg PO 0730,1630 [facility] Last Admin: 12/08/16 08:05 Dose: 40 mg Potassium Chloride (K-Dur 20 Meq Er Tab) 20 meq PO ONCE ONE Stop: 12/06/16 03:49 Last Admin: 12/06/16 03:58 Dose: 20 meq Propofol (Diprivan) Confirm Administered Dose 200 mg .ROUTE .STK-MED ONE Stop: 12/06/16 12:47 Sucralfate (Carafate Oral Susp) 1 gm PO ACHS [facility] Last Admin: 12/08/16 10:06 Dose: 1 gm - Scribe Statement The provider has reviewed the documentation as recorded by the Darleneibsteve Sinclair All medical record entries made by the Darleneibsteve were at my direction and personally dictated by me. I have reviewed the chart and agree that the record accurately reflects my personal performance of the history, physical exam, medical decision making, and the department course for this patient. I have also personally directed, reviewed, and agree with the discharge instructions and disposition. Disposition/Present on Arrival - Present on Arrival Any Indicators Present on Arrival: No History of DVT/PE: Yes History of Uncontrolled Diabetes: No Urinary Catheter: No History of Decub. Ulcer: No History Surgical Site Infection Following: None - Disposition Have Diagnosis and Disposition been Completed?: Yes Diagnosis: Anemia Disposition: HOSPITALIZED Disposition Time: 04:45 Condition: GOOD
[2016-12-06 01:15] LABS: ADD MANUAL DIFF? NO
[2016-12-06 01:22] LABS: BASO # 0.04 K/mm3 (0.0-2.0); BASO % 0.6 % (0.0-3.0); EOS # 0.2 (0.0-0.7); EOS % 3.4 % (1.5-5.0); GRAN # 3.83 (1.4-6.5); GRAN % 54.9 % (50.0-68.0); LYMPH # 2.3 (1.2-3.4); LYMPH % 32.5 % (22.0-35.0); MEAN CELL VOLUME 68.6 fL (80.0-105.0); MEAN CORPUSCULAR HEMOGLOBIN 20.3 pg (25.0-35.0); MEAN CORPUSCULAR HGB CONC 29.6 g/dl (31.0-37.0); MEAN PLATELET VOLUME 8.1 fl (7.0-11.0); MONO # 0.6 (0.1-0.6); MONO % 8.6 % (1.0-6.0); PLATELET COUNT 259 10^3/uL (120.0-450.0); RED CELL DISTRIBUTION WIDTH 20.5 % (11.5-14.5)
[2016-12-06 01:29] LABS: VENOUS BLOOD GAS BASE EXCESS -5.2 mmol/L (0.0-2.0); VENOUS BLOOD PH 7.38 (7.32-7.43)
[2016-12-06 01:33] LABS: HEMATOCRIT 17.9 % (42.0-52.0)
[2016-12-06 01:39] LABS: INR 0.98 (0.93-1.08); PARTIAL THROMBOPLASTIN TIME 20.5 Seconds (23.7-30.8)
[2016-12-06 01:48] LABS: ALB/GLOB RATIO 1.3 (1.1-1.8); ALKALINE PHOSPHATASE 46 U/L (38-133); ALT/SGPT 33 U/L (7-56); AST/SGOT 33 U/L (15-59); BILIRUBIN,TOTAL 0.4 mg/dL (0.2-1.3); BLOOD UREA NITROGEN 16 mg/dL (7-21); CARBON DIOXIDE 19 mmol/L (21-33); CHLORIDE 104 mmol/L (98-107); GFR AFRICAN-AMERICAN > 60; GLUCOSE,RANDOM 104 mg/dL (70-110); POTASSIUM 3.4 mmol/L (3.6-5.0); SODIUM 136 mmol/L (132-148); TOTAL PROTEIN 7.1 g/dL (5.8-8.3)
[2016-12-06 02:00] LABS: TROPONIN I 0.02 ng/mL
--- NOTE | 2016-12-06 02:47 | CT ---
EXAM: CT Head Without Intravenous Contrast CLINICAL HISTORY: 46 years old, male; Signs and symptoms; Syncope and collapse TECHNIQUE: Axial computed tomography images of the head/brain without intravenous contrast. This CT exam was performed using one or more of the following dose reduction techniques: automated exposure control, adjustment of the mA and/or kV according to patient size, and/or use of iterative reconstruction technique. COMPARISON: CT - HEAD W/O CONTRAST 07/23/2016 3:34:30 AM FINDINGS: Brain: No intracranial hemorrhage. No mass. No definite edema. Ventricles: No hydrocephalus. Bones/joints: No acute fracture. Chronic deformity medial wall of LEFT orbit. Soft tissues: Unremarkable. Sinuses: No acute sinusitis. Mastoid air cells: No mastoid effusion. Orbits: Unremarkable as visualized. IMPRESSION: 1. No acute intracranial abnormality. 2. Incidental/non-acute findings are described above.
[2016-12-06 03:22] LABS: URINE BILIRUBIN NEGATIVE (NEGATIVE); URINE BLOOD NEGATIVE (NEGATIVE); URINE GLUCOSE (UA) NEGATIVE (NEGATIVE); URINE KETONE NEGATIVE (NEGATIVE); URINE LEUKOCYTE ESTERASE NEGATIVE Leu/uL (NEGATIVE); URINE PROTEIN NEGATIVE mg/dL (<30 mg/dL); URINE UROBILINOGEN 0.2 E.U./dL (<1 E.U./dL)
[2016-12-06 03:25] LABS: URINE APPEARANCE CLEAR (CLEAR); URINE COLOR LIGHT YELLOW (YELLOW)
[2016-12-06] MEDS ORDERED: Potassium Chloride 20 mEq ER Tab PO ONE (03:48)
[2016-12-06] MEDS ORDERED: Sodium Chloride 0.9% 1,000 ML IV SCH (04:30)
[2016-12-06 04:38] LABS: VENOUS BLOOD GAS BASE EXCESS -1.1 mmol/L (0.0-2.0); VENOUS BLOOD PH 7.37 (7.32-7.43)
[2016-12-06] MEDS ORDERED: Albuterol-Ipratrop 3 mg / 0.5 (3 ml) UD IH PRN (04:39)
[2016-12-06] MEDS: guaiFENesin 200 mg/10 ml Syrup UD PO PRN (04:56)
[2016-12-06] MEDS: cefTRIAXone 1 gm 1 GM/100 ML BAG IVPB SCH ×2 (04:56→09:26)
[2016-12-06] MEDS: Pantoprazole 40mg/100ml IVPB 40 MG/100 ML BAG IVPB SCH ×2 (04:57→09:25)
--- NOTE | 2016-12-06 05:08 | CP.PCM.HP ---
History of Present Illness - History of Present Illness History of Present Illness: History of Present Illness: The patient is a 46 year old man with a history of basal cell carcinoma of the skin, pumonary embolism (s/p IVC filter and SC Lovenox), large hiatal hernia, gastritis and HTN who presents with 1 week of worsening SOB and a syncopal episode which occurred at around 21: 00 yesterday evening. During the episode, the patient lost consciousness for about 20 secs and ended up falling to the ground and hitting his head. He also reports 2 weeks of worsening cough with yellow sputum and intermittent non-bilious, non-bloody vomiting. Of note, the patient was admitted to [facility] in mid September 2016 for acute anemia and GI bleed. On that admission, he was transfused blood and the plan was for him to undergo an EGD but the patient ended up leaving AMA. The patient now reports that 2 weeks ago he ended up having both an outpaitent EGD and colonoscopy done at [facility] and he thinks he was found to have bleeding stomach ulcers but he is not completely sure of the results. His last meleanic stool was 2-3 weeks ago and since then he has not had any bloody or black stool. He also reports intermittent abdominal pain with he attributes to his hiatal hernia. He denies fevers, chills, chest pain, recent travel, neuro deficits, headache or recent trauma. In the ED he was found to have an elevated lactic acid (2.4), sinus tachycardia ([id number]) and hemoglobin of 5.3. Given his multiple acute issues , he will be admitted to the ICU overnight for closer monitoring. 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 Review of Systems: 14 bodily systems reviewed and found to be negative except as noted in the HPI Present on Admission - Present on Admission Any Indicators Present on Admission: No History of DVT/PE: Yes Past Patient History - Infectious Disease Hx of Infectious Diseases: None - Tetanus Immunizations Tetanus Immunization: Unknown - Past Medical History & Family History Past Medical History?: Yes - Past Social History Smoking Status: Never Smoked - CARDIAC Hx Cardiac Disorders: Yes Hx Hypertension: Yes Hx Peripheral Vascular Disease: Yes - PULMONARY Hx Respiratory Disorders: No - NEUROLOGICAL Hx Neurological Disorder: Yes (SYNCOPE 03-25-16) - HEENT Hx HEENT Problems: No - RENAL Hx Chronic Kidney Disease: No - ENDOCRINE/METABOLIC Hx Endocrine Disorders: No - HEMATOLOGICAL/ONCOLOGICAL Hx Blood Disorders: Yes Hx Anemia: Yes 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) - INTEGUMENTARY Hx Dermatological Problems: Yes (TATTOOS) Hx Melanoma: Yes - MUSCULOSKELETAL/RHEUMATOLOGICAL Hx Musculoskeletal Disorders: Yes Hx Degenerative Joint Disease: Yes Hx Falls: Yes Other/Comment: CERVICAL AND LUMBAR RADICULOPATHY - GASTROINTESTINAL Hx Gastrointestinal Disorders: Yes Hx Diverticulitis: Yes Hx Gastroesophageal Reflux: Yes Other/Comment: GASTRITIS, HIATAL HERNIA - GENITOURINARY/GYNECOLOGICAL Hx Genitourinary Disorders: No - PSYCHIATRIC Hx Psychophysiologic Disorder: Yes (cocaine use) Hx Depression: No Hx Emotional Abuse: No Hx Physical Abuse: No Hx Substance Use: Yes (denies-tox screen +cocaine) Other/Comment: pt denies cocaine use and binge drinking, admits to social drinking 3x wk - SURGICAL HISTORY Other/Comment: IVC FILTER - ANESTHESIA Hx Anesthesia: No Meds Allergies/Adverse Reactions: Allergies Allergy/AdvReac Type Severity Reaction Status Date / Time iron sucrose complex Allergy Severe RASH, Verified 07/23/16 06:23 [From Venofer] ITCHING Physical Exam - Constitutional Additional comments: In mild distress due to recurrent harsh cough - Head Exam Head Exam: ATRAUMATIC, NORMAL INSPECTION, NORMOCEPHALIC - Eye Exam Eye Exam: EOMI, Normal appearance, PERRL Additional comments: Pale conjunctiva bilaterally - ENT Exam ENT Exam: Mucous Membranes Dry - Neck Exam Neck exam: Positive for: Normal Inspection - Respiratory Exam Additional comments: Scattered coarse breath sounds (intermittently); No accessory muscle use - Cardiovascular Exam Cardiovascular Exam: Tachycardia, REGULAR RHYTHM, +S1, +S2 - GI/Abdominal Exam GI & Abdominal Exam: Normal Bowel Sounds, Soft. absent: Tenderness - Rectal Exam Rectal Exam: Deferred - Extremities Exam Extremities exam: Positive for: normal inspection Additional comments: Trace bilateral lower extremity pitting edema - Neurological Exam Additional comments: Grossly normal neurological exam - Skin Skin Exam: Pallor Results - Vital Signs Recent Vital Signs: Last Vital Signs Temp 98.6 F 12/06/16 04:25 Pulse 93 H 12/06/16 04:25 Resp 18 12/06/16 04:25 BP 118/58 L 12/06/16 04:25 Pulse Ox 100 12/06/16 02:44 - Labs Result Diagrams: 12/06/16 01:00 12/06/16 01:00 Labs: Laboratory Results - last 24 hr 12/06/16 04:15 pO2 119 H VBG pH 7.37 VBG pCO2 42.0 VBG HCO3 24.3 VBG Total CO2 25.6 VBG O2 Sat (Calc) 98.2 H VBG Base Excess -1.1 L VBG Potassium 3.7 Sodium 139.0 Chloride 112.0 H Glucose 156 H Lactate 1.4 FiO2 21.0 Venous Blood Potassium 3.7 - Imaging and Cardiology CT scan - head Status: Report reviewed by me Assessment & Plan - Assessment and Plan (Free Text) Plan: Assessment and Plan: The patient is a 46 year old man with a history of basal cell carcinoma of the skin, pumonary embolism (s/p IVC filter and SC Lovenox), large hiatal hernia, gastritis and HTN who is being admitted with upper GI bleed, severe symptomatic aneima, syncope and acute bronchitis. 1. Upper GI Bleed: -pt reports last episode of melanic stool was about 2 weeks ago -pt is a poor historian but reports undergoing an elective EGD and colonoscopy at [facility] recently; will defer to the primary to obtain these records later today -keep NPO and on IVFs -Protonix drip -will hold home medication of therapeutic SC Lovenox for now -GI consult placed (Dr. Chisholm) -check serial CBCs -will transfuse 2units PRBCs 2. Syncope: -ddx: hypotension vs orthostasis vs cardiac vs neuro -check orthstatics -IVFs -fall precautions -CT-head negative for acute disease -check urine toxicology 3. Acute Bronchitis: -overt infiltrate not apparent on CXR (although imag is suboptimal) -given symptoms and elevated lactic acid of 2.4, will treat empically with IV Ceftriaxone and Azithromycin after checking blood and urine cultures and procalcitonin -Duo-nebs PRN -PRN bronchitis 4. History of Pulmonary Embolus (diagnosed 2015): -s/p IVC filter in 2016 -will hold therapeutic SC Lovenox overnight due to concerns for acute GI bleeding 5. HTN: -because pts ED SBPs were in low 100s, will hold home meds overnight DVT PPx: IVC Filter GI PPx: Protonix drip
[2016-12-06] MEDS: Azithromycin 250 MG in Sodium Chloride 0.9% 250 ML IVPB SCH ×2 (06:35→09:26)
--- NOTE | 2016-12-06 08:09 | CON ---
DATE: 12/06/2016 I examined the patient this morning. He is a 46-year-old obese male with past medical history of hypertension, DVT, IVC filter, recurrent pulmonary emboli, gastric ulcerations, anemia, hiatal hernia, basal cell cancer, substance abuse, presented after a syncopal episode. He indicated he has been experiencing severe shortness of breath and chest pain, also severe dyspnea on exertion. He takes Lovenox for chronic DVTs and pulmonary emboli. He also has some lower extremity swelling. The patient indicated he has epigastric pain and acid reflux on a nearly daily basis. He does not practice antireflux precautions. The patient related that he has had longstanding anemia extending back to March. Apparently, he has been on multiple doses of proton pump inhibitors. He has had several endoscopy procedures which were significant for gastric ulcerations, but despite therapy, the hemoglobin keeps dropping back down to lower levels. He has noted that, over the past week or so, his bowel movements have been within normal limits; however, 2-3 weeks ago, he did notice that, for several days, he had dark stools which have subsequently resolved. The patient is on chronic Lovenox therapy, does not take any NSAIDs. PHYSICAL EXAMINATION: VITAL SIGNS: I reviewed this patient's vital signs. HEENT: Significant for dry mouth only. LUNGS: Decreased breath sounds basilar. HEART: Irregular rhythm. ABDOMEN: Protuberant, tender in the epigastric area and the left upper quadrant. The lower quadrants noncontributory. REVIEW OF LABORATORY DATA: Indicates a white count of 7.0, hemoglobin of 5.3. INR of 0.98, a PTT 20.5. Chemistry significant for hypokalemia with a mildly elevated CPK. His transaminase and bilirubin are within normal limits. OVERALL ASSESSMENT: This is a 46-year-old obese male with history of deep venous thrombosis and pulmonary emboli plus multiple gastric ulcerations on endoscopy, noncompliant with antireflux precautions, who has been on chronic proton pump inhibitor therapy. The patient is continually anemic, will most likely need endoscopy during this admission. Again, his most recent endoscopy was several months ago, productive of gastric ulcerations. This admission, the patient will receive blood transfusions, IV fluids and will be evaluated most likely by the cardiology service for a syncopal episode. There is recurrent coughing. The patient is currently on ceftriaxone and azithromycin. Diet orders will be dictated by the house staff at the current time point. He is currently n.p.o. Wesley Prabhakar DO, PhD cc: [id number] TT: 12/06/2016 08:08:44 Confirmation # [id number] Dictation # [id number] consuelo CELIS
--- NOTE | 2016-12-06 08:21 | RAD ---
HISTORY: Shortness of breath COMPARISON: 10/16/2016 FINDINGS: LUNGS: The lungs are clear. PLEURA: No significant pleural effusion identified, no pneumothorax apparent. CARDIOVASCULAR: Normal. OSSEOUS STRUCTURES: No significant abnormalities. VISUALIZED UPPER ABDOMEN: Normal. OTHER FINDINGS: None. IMPRESSION: No active pulmonary disease.
--- NOTE | 2016-12-06 10:08 | CP.CCUPN ---
<Tanja Vivar - Last Filed: 12/06/16 14:52> CCU Subjective - Physician Review Subjective (Free Text): 12/06/16 10:21 Pt seen and examined with sister by bedside. Pt last drink beer x 8 last night. Pt cough, SOB, and "passed out". CP is chronic, sharp, dysneic, unchagne in character and intensity. SOB from cough with sputum CCU Objective - Vital Signs / Intake & Output Vital Signs (Last 4 hours): Vital Signs Temp Pulse Resp BP Pulse Ox 12/06/16 09:28 97.8 F 72 20 126/74 12/06/16 08:56 74 12/06/16 08:43 98.5 F 73 20 124/80 12/06/16 08:42 75 20 124/80 100 12/06/16 08:40 81 27 H 97 12/06/16 08:30 72 18 100 12/06/16 08:27 98.7 F 74 20 130/75 12/06/16 08:20 84 18 98 12/06/16 08:11 86 130/75 100 12/06/16 08:10 80 100 12/06/16 08:00 98.7 F 79 22 138/93 H 100 12/06/16 07:50 77 19 100 12/06/16 07:40 90 22 100 12/06/16 07:30 63 45 H 99 12/06/16 07:20 87 47 H 100 12/06/16 07:10 88 21 100 12/06/16 07:00 83 6 L 114/70 100 12/06/16 06:50 86 100 12/06/16 06:40 81 18 100 12/06/16 06:30 98.1 F 79 17 127/79 100 12/06/16 06:27 83 17 127/79 99 12/06/16 06:21 85 12/06/16 06:20 84 16 99 12/06/16 06:10 85 15 99 Intake and Output (Last 8hrs): Intake & Output 12/05/16 12/06/16 12/06/16 22:59 06:59 14:59 Intake Total 325 0 Balance 325 0 Intake: Blood Product 325 0 Red Blood Cells Cpd As1 0 Lr Unit [id number] Red Blood Cells Cpd As1 325 Lr Unit [id number] Other: Voiding Method Urinal - Physical Exam Head: Positive for: Atraumatic, Normocephalic Pupils: Positive for: PERRL Extroacular Muscles: Positive for: EOMI Conjunctiva: Positive for: Normal Mouth: Positive for: Moist Mucous Membranes Pharnyx: Negative for: ERYTHEMA, EXUDATE Nose (Internal): Positive for: No Active Bleeding. Negative for: Epistaxis Neck: Positive for: Normal Range of Motion Respiratory/Chest: Positive for: Clear to Auscultation, Good Air Exchange. Negative for: Respiratory Distress, Accessory Muscle Use Cardiovascular: Positive for: Regular Rate and Rhythm, Normal S1, S2. Negative for: Murmurs Abdomen: Positive for: Normal Bowel Sounds. Negative for: Tenderness, Distention, Peritoneal Signs Back: Positive for: Normal Inspection Upper Extremity: Positive for: Normal Inspection. Negative for: Cyanosis, Edema Lower Extremity: Positive for: Swelling (Swelling to left lower extremity). Negative for: Edema Neurological: Positive for: GCS=15, CN II-XII Intact, Speech Normal Skin: Positive for: Warm, Dry, Pale. Negative for: Rashes Psychiatric: Positive for: Alert, Oriented x 3, Normal Insight, Normal Concentration - Medications Active Medications: Active Medications Generic Name Dose Route Start Last Admin Trade Name Freq PRN Reason Stop Dose Admin Acetaminophen 650 mg 12/06/16 04:26 Tylenol 325mg Tab PO Q6H PRN Pain, moderate (4-7) Guaifenesin 200 mg 12/06/16 04:40 12/06/16 04:56 Robitussin PO 200 mg Q4H PRN Administration Cough and congestion Sodium Chloride 1,000 mls @ 100 mls/hr 12/06/16 04:30 12/06/16 04:56 Sodium Chloride 0.9% IV 100 mls/hr .Q10H SISSY Administration Pantoprazole Sodium 40 mg in 100 mls @ 20 mls/hr 12/06/16 04:45 12/06/16 09: 25 Protonix 40mg Ivpb IVPB 20 mls/hr .Q5H SISSY Administration Ceftriaxone Sodium 1 gm in 100 mls @ 100 mls/hr 12/06/16 04:35 12/06/16 09:26 Rocephin 1 Gram Ivpb IVPB Not Given DAILY SISSY Protocol Azithromycin 250 mg/ Sodium 250 mls @ 167 mls/hr 12/06/16 04:35 12/06/16 09: 26 Chloride IVPB Not Given DAILY SISSY Protocol Ondansetron HCl 4 mg 12/06/16 04:26 Zofran Inj IVP Q6H PRN Nausea/Vomiting - Patient Studies Lab Studies: Lab Studies 12/06/16 12/06/16 12/06/16 Range/Units 06:00 04:45 04:45 pO2 (30-55) mm/Hg VBG pH (7.32-7.43) VBG pCO2 (40-60) VBG HCO3 (21-28) mmol/l VBG Total CO2 (22-28) mmol.L VBG O2 Sat (Calc) (40-65) % VBG Base Excess (0.0-2.0) mmol/L VBG Potassium (3.6-5.2) mmol/L Sodium (132-148) mmol/L Chloride (98-107) mmol/L Glucose (75-110) mg/dl Lactate (0.7-2.1) mmol/L FiO2 % Lactic Acid 1.3 (0.7-2.1) mmol/L NT-Pro-B Natriuret Pep 156 (0-450) pg/mL Venous Blood Potassium (3.6-5.2) mmol/L Urine Opiates Screen Negative (NEGATIVE) Urine Methadone Screen Negative (NEGATIVE) Ur Barbiturates Screen Negative (NEGATIVE) Ur Phencyclidine Scrn Negative (NEGATIVE) Ur Amphetamines Screen Negative (NEGATIVE) U Benzodiazepines Scrn Negative (NEGATIVE) U Oth Cocaine Metabols Positive H (NEGATIVE) U Cannabinoids Screen Negative (NEGATIVE) 12/06/16 Range/Units 04:15 pO2 119 H (30-55) mm/Hg VBG pH 7.37 (7.32-7.43) VBG pCO2 42.0 (40-60) VBG HCO3 24.3 (21-28) mmol/l VBG Total CO2 25.6 (22-28) mmol.L VBG O2 Sat (Calc) 98.2 H (40-65) % VBG Base Excess -1.1 L (0.0-2.0) mmol/L VBG Potassium 3.7 (3.6-5.2) mmol/L Sodium 139.0 (132-148) mmol/L Chloride 112.0 H (98-107) mmol/L Glucose 156 H (75-110) mg/dl Lactate 1.4 (0.7-2.1) mmol/L FiO2 21.0 % Lactic Acid (0.7-2.1) mmol/L NT-Pro-B Natriuret Pep (0-450) pg/mL Venous Blood Potassium 3.7 (3.6-5.2) mmol/L Urine Opiates Screen (NEGATIVE) Urine Methadone Screen (NEGATIVE) Ur Barbiturates Screen (NEGATIVE) Ur Phencyclidine Scrn (NEGATIVE) Ur Amphetamines Screen (NEGATIVE) U Benzodiazepines Scrn (NEGATIVE) U Oth Cocaine Metabols (NEGATIVE) U Cannabinoids Screen (NEGATIVE) Laboratory Results - last 24 hr 12/06/16 12/06/16 12/06/16 04:15 04:45 04:45 pO2 119 H VBG pH 7.37 VBG pCO2 42.0 VBG HCO3 24.3 VBG Total CO2 25.6 VBG O2 Sat (Calc) 98.2 H VBG Base Excess -1.1 L VBG Potassium 3.7 Sodium 139.0 Chloride 112.0 H Glucose 156 H Lactate 1.4 FiO2 21.0 Lactic Acid 1.3 NT-Pro-B Natriuret Pep 156 Venous Blood Potassium 3.7 Urine Opiates Screen Urine Methadone Screen Ur Barbiturates Screen Ur Phencyclidine Scrn Ur Amphetamines Screen U Benzodiazepines Scrn U Oth Cocaine Metabols U Cannabinoids Screen 12/06/16 06:00 pO2 VBG pH VBG pCO2 VBG HCO3 VBG Total CO2 VBG O2 Sat (Calc) VBG Base Excess VBG Potassium Sodium Chloride Glucose Lactate FiO2 Lactic Acid NT-Pro-B Natriuret Pep Venous Blood Potassium Urine Opiates Screen Negative Urine Methadone Screen Negative Ur Barbiturates Screen Negative Ur Phencyclidine Scrn Negative Ur Amphetamines Screen Negative U Benzodiazepines Scrn Negative U Oth Cocaine Metabols Positive H U Cannabinoids Screen Negative Critical Care Progress Note - Nutrition Nutrition: Nutrition Category Date Time Status NPO Diet [DIET] Diets 12/06/16 Breakfast Ordered Assessment/Plan - Assessment and Plan (Free Text) Plan: 46 obese male with PMHx HTN, basal cell ca of face, DVT/recurrent PE on chronic lovenox, s/p IVC filter, PUD non-compliant with PPI, ETOH abuse (15 beers 3 times weekly, last drink last night), colon polyp, gastric ulcers, chronic anemia, admitted for syncope in the setting of chest pain and severe dypsnea with LE swelling. Hb was low, dark stool past 2-3 weeks. Pt is allergic to Fe sucrose. Pt is s/p EGD Neuro CIWA q4 Banana bag in NS @ 100 Ativan 2q2 PRN Pulm Guaifenesin Card Trops negative x 2. Hb 5.3 --> 7 s/p 2u pRBC Hb baseline 8-9 GI Clean based PUD ulcers, proximal, multiple. Will get gastrin to r/o ZE Protonix BID, Carafet 1g ACHS, clear liquid diet Zofran PRN Monitor i/o Endo K repleted Heme 2pRBC transfused Lovenox 40 subcutanous daily (low dose) LE U/S b/l recannulated, IVC Microcytic anemia ID Lactate 2.4 - likely due to low Hb Pending next lactate Rocephin and Azithromycin, pending procalc Prophylasix Lovenox pending next Hb S/R/D with Dr. Lloyd - Date & Time Date: 12/06/16 Time: 10:24 <Emmanuel Lloyd - Last Filed: 12/10/16 17:57> CCU Objective - Patient Studies Lab Studies: Lab Studies 12/08/16 Range/Units 05:30 Crossmatch See Detail Laboratory Results - last 24 hr 12/08/16 05:30 Crossmatch See Detail Critical Care Progress Note - Nutrition Nutrition: Nutrition Category Date Time Status Liquid Diet [DIET] Diets 12/06/16 Dinner Ordered Addendum Addendum: 12/10/16 17:54 patient was seen, examined and discussed at bedside with Dr. Vivar. Her note reflects my exam, assessment and plan, except as below. Meds/Labs/ONE reviewed. 46 yo male with upper GI bleed. EGD-clean based ulcers, low risk for rebleed. clear liquids ok-ed by GI. Hemodynamically and respiratory stable. ok to downgrade to tele ccm time 40 min
[2016-12-06] MEDS ORDERED: Multivitamin (MVI) 10 ML, Thiamine 100 MG, Folic Acid 1 MG in Sodium Chloride 0.9% 1,00... IV ONE (10:35)
--- NOTE | 2016-12-06 10:50 | CARD ---
APPROVED REPORT EKG Measurement Heart [id number] <Conclusion> Normal sinus rhythm Prolonged QT NSSTW changes The rate is slower c/w ECG 10/16/16
[2016-12-06] MEDS: Multivitamin (MVI) 10 ML, Thiamine 100 MG, Folic Acid 1 MG in Sodium Chloride 0.9% 1,00... IV SCH ×2 (11:53→21:49)
[2016-12-06 12:06] LABS: ADD MANUAL DIFF? NO
[2016-12-06 12:09] LABS: BASO # 0.03 K/mm3 (0.0-2.0); BASO % 0.5 % (0.0-3.0); EOS # 0.2 (0.0-0.7); EOS % 3.8 % (1.5-5.0); GRAN # 2.99 (1.4-6.5); GRAN % 54.4 % (50.0-68.0); LYMPH # 1.7 (1.2-3.4); LYMPH % 30.2 % (22.0-35.0); MEAN CORPUSCULAR HEMOGLOBIN 21.7 pg (25.0-35.0); MEAN CORPUSCULAR HGB CONC 29.8 g/dl (31.0-37.0); MONO # 0.6 (0.1-0.6); MONO % 11.1 % (1.0-6.0); PLATELET COUNT 202 10^3/uL (120.0-450.0); RED CELL DISTRIBUTION WIDTH 20.6 % (11.5-14.5); WHITE BLOOD COUNT 5.5 10^3/ul (4.5-11.0)
[2016-12-06 12:13] LABS: HEMATOCRIT 23.5 % (42.0-52.0)
--- NOTE | 2016-12-06 12:26 | US ---
HISTORY: Leg pain and swelling. Evaluate for DVT PHYSICIAN(S): Jose Cantrell MD. TECHNIQUE: Duplex sonography and color-flow Doppler with graded compression were used to evaluate the deep venous systems of both lower extremities. FINDINGS: There is partially recannulized thrombus in the left popliteal and visualized tibial veins. The left femoral vein and left common femoral vein are patent and compressible. There is no sonographic evidence for deep venous thrombosis in the visualized segments of the right lower extremity IMPRESSION: Partially recannulized thrombus in the left popliteal and tibial veins
[2016-12-06 12:42] LABS: TROPONIN I < 0.01 ng/mL
[2016-12-06] MEDS ORDERED: Propofol 10 mg/ml Inj (20 ML) ONE (12:46)
[2016-12-06] MEDS ORDERED: Lidocaine 1% Inj (20ml) ONE (12:47)
[2016-12-06] MEDS ORDERED: Midazolam 2 MG/2 ML VIAL ONE (12:47)
[2016-12-06 15:36] LABS: ADD MANUAL DIFF? NO
[2016-12-06 15:46] LABS: VENOUS BLOOD GAS BASE EXCESS 0.7 mmol/L (0.0-2.0); VENOUS BLOOD PH 7.32 (7.32-7.43)
[2016-12-06 16:17] LABS: BASO # 0.03 K/mm3 (0.0-2.0); BASO % 0.5 % (0.0-3.0); EOS # 0.3 (0.0-0.7); EOS % 4.4 % (1.5-5.0); GRAN # 3.22 (1.4-6.5); GRAN % 56.7 % (50.0-68.0); LYMPH # 1.6 (1.2-3.4); LYMPH % 28.2 % (22.0-35.0); MEAN CELL VOLUME 72.9 fL (80.0-105.0); MEAN CORPUSCULAR HEMOGLOBIN 21.5 pg (25.0-35.0); MEAN CORPUSCULAR HGB CONC 29.5 g/dl (31.0-37.0); MEAN PLATELET VOLUME 8.5 fl (7.0-11.0); MONO # 0.6 (0.1-0.6); MONO % 10.2 % (1.0-6.0); PLATELET COUNT 227 10^3/uL (120.0-450.0); RED CELL DISTRIBUTION WIDTH 20.4 % (11.5-14.5); WHITE BLOOD COUNT 5.7 10^3/ul (4.5-11.0)
[2016-12-06 16:31] LABS: HEMATOCRIT 23.7 % (42.0-52.0)
[2016-12-06] MEDS: Pantoprazole 40 mg EC Tab PO SCH (16:51)
[2016-12-06] MEDS: Sucralfate 1 gm/10 ml Oral Susp UD PO SCH ×2 (16:51→21:41)
[2016-12-06 22:11] LABS: ADD MANUAL DIFF? NO
[2016-12-06 22:17] LABS: BASO # 0.03 K/mm3 (0.0-2.0); BASO % 0.4 % (0.0-3.0); EOS # 0.3 (0.0-0.7); GRAN % 55.6 % (50.0-68.0); LYMPH % 29.4 % (22.0-35.0); MEAN CELL VOLUME 72.8 fL (80.0-105.0); MEAN CORPUSCULAR HGB CONC 30.3 g/dl (31.0-37.0); MEAN PLATELET VOLUME 8.4 fl (7.0-11.0); MONO # 0.7 (0.1-0.6); MONO % 9.6 % (1.0-6.0); PLATELET COUNT 223 10^3/uL (120.0-450.0); RED CELL DISTRIBUTION WIDTH 20.1 % (11.5-14.5); WHITE BLOOD COUNT 6.8 10^3/ul (4.5-11.0)
[2016-12-06 22:59] LABS: HEMATOCRIT 23.8 % (42.0-52.0)
[2016-12-07 05:27] VITALS: O2SAT 99
[2016-12-07 06:59] LABS: ADD MANUAL DIFF? NO
[2016-12-07 07:23] LABS: BASO # 0.04 K/mm3 (0.0-2.0); BASO % 0.7 % (0.0-3.0); EOS # 0.3 (0.0-0.7); EOS % 5.5 % (1.5-5.0); GRAN # 3.09 (1.4-6.5); GRAN % 56.3 % (50.0-68.0); LYMPH # 1.5 (1.2-3.4); LYMPH % 26.8 % (22.0-35.0); MEAN CELL VOLUME 73.7 fL (80.0-105.0); MEAN CORPUSCULAR HEMOGLOBIN 21.8 pg (25.0-35.0); MEAN CORPUSCULAR HGB CONC 29.6 g/dl (31.0-37.0); MONO # 0.6 (0.1-0.6); MONO % 10.7 % (1.0-6.0); PLATELET COUNT 228 10^3/uL (120.0-450.0); WHITE BLOOD COUNT 5.5 10^3/ul (4.5-11.0)
[2016-12-07 07:32] LABS: HEMATOCRIT 23.3 % (42.0-52.0)
--- NOTE | 2016-12-07 07:46 | CON ---
DATE: 12/06/2016 REASON FOR CONSULTATION: Abnormal EKG, dyspnea on exertion, severe anemia, admitting hemoglobin 5.3. BRIEF CLINICAL HISTORY: This is a 46-year-old male with a past medical history significant for basal cell carcinoma of the skin, pulmonary embolism, IVC filter, on subcutaneous Lovenox. Admitted with hemoglobin 5.3, underwent endoscopy, large hiatal hernia. Cardiology consult was called because of t he dyspnea on exertion and questionable history of QT prolongation. The patient denies any chest lexy n, shortness of breath, any palpitation. PAST MEDICAL HISTORY: Significant for basal cell carcinoma of the skin, pulmonary embolism, status p ost IVC filter, on Lovenox, hypertension, gastritis, recent endoscopy shows hiatal hernia, large, his tory of large hiatal hernia, endoscopy shows gastric ulcer. CURRENT MEDICATIONS: Cozaar 25 mg, Protonix 40, Lovenox subQ daily for pulmonary embolism treatment. SOCIAL HISTORY: Denies smoking. Denies any history of alcohol abuse. REVIEW OF SYSTEMS: Negative except as per HPI. PHYSICAL EXAMINATION: VITAL SIGNS: Temperature afebrile, heart rate 73, blood pressure 129/92. HEENT: PERRLA. Extraocular muscles intact. NECK: Supple. No carotid bruits. No thyromegaly. CHEST: Clear to auscultation. HEART: S1, S2 regular. ABDOMEN: Soft. EXTREMITIES: Clubbing, cyanosis negative. BLOOD WORKUP: WBC 5.3, hemoglobin 7.3, hematocrit 23.7, platelet count 227. Chemistry shows sodium 130, potassium 3.4, chloride 104, carbon dioxide 19, anion gap of 16, BUN 16, creatinine 1.1. Tropon in 0.02. Coagulation profile within normal limits. Admitting hemoglobin was 5.3, status post RBC tr ansfused, status post . IMPRESSION: Severe anemia, gastrointestinal bleed, hiatal hernia, gastric ulcer, history of deep nieves ous thrombosis, history of pulmonary embolism, on therapeutic dose of Lovenox at home as well as on C oumadin at home. EKG reviewed, shows normal sinus, read prolonged QT, but current QTc is secon ds, essentially normal EKG. RECOMMENDATION: Monitor H and H. Keep hemoglobin around 10. Repeat the EKG. Possible dyspnea on e xertion secondary to severe anemia. Will follow with you. We will review. If no recent echo was do ne, will get echo to assess left ventricular function. We will follow with you. Thank you, Dr. Pantoja, for providing us the opportunity in taking care of the patient. ADDENDUM: Previous electronic record reviewed. The patient had echo on 03/28/2016 that shows normal chamber size, normal left ventricular function, trace to mild aortic regurgitation, mild mitral regur gitation, trace tricuspid regurgitation, right ventricular systolic pressure . We will follow w ith you. We will get the lipid profile, TSH, hemoglobin A1c. Lucie Sears MD cc: [id number] TT: 12/07/2016 07:46:04 Confirmation # [id number] Dictation # [id number] en
[2016-12-07 08:04] LABS: ALB/GLOB RATIO 1.2 (1.1-1.8); ALKALINE PHOSPHATASE 47 U/L (38-133); ALT/SGPT 32 U/L (7-56); AST/SGOT 29 U/L (15-59); BILIRUBIN,TOTAL 0.3 mg/dL (0.2-1.3); BLOOD UREA NITROGEN 13 mg/dL (7-21); CALCIUM 8.2 mg/dL (8.4-10.5); CARBON DIOXIDE 26 mmol/L (21-33); CHLORIDE 108 mmol/L (98-107); GFR AFRICAN-AMERICAN > 60; GLUCOSE,RANDOM 106 mg/dL (70-110); PHOSPHOROUS 3.2 mg/dL (2.5-4.5); SODIUM 141 mmol/L (132-148)
[2016-12-07] MEDS: Sucralfate 1 gm/10 ml Oral Susp UD PO SCH ×4 (08:21→21:29)
[2016-12-07] MEDS: Pantoprazole 40 mg EC Tab PO SCH ×2 (08:21→17:00)
--- NOTE | 2016-12-07 08:45 | PN ---
DATE: 12/07/2016 I examined the patient this morning. He is a 46-year-old white male evaluated yesterday for complaints of abdominal pain as well as anemia. The patient underwent an upper endoscopy yesterday which was significant for mild esophagitis, hiatal hernia and multiple linear gastric ulcers in the fundus as well as a pyloric channel ulcer. The patient apparently did well last night. Still exhibiting some epigastric pain, but no evidence of hematemesis or rectal bleeding. The hemoglobin is apparently stable over the past couple of hours. The last hemoglobin/hct was 7.2/23.8. PHYSICAL EXAMINATION: VITAL SIGNS: I reviewed this patient's vital signs. HEENT: Noncontributory. LUNGS: Decreased breath sounds basilar. HEART: Regular rhythm. ABDOMEN: Protuberant, tender in the epigastric area, left upper quadrant. OVERALL ASSESSMENT: This is a 46-year-old male evaluated for refractory anemia. Upper endoscopy findings are as above and the endoscopy report is in the patient's chart. The patient is currently on medications for control of ulcer disease including Carafate plus a PPI. Note that biopsies are still pending for evaluation of H. pylori or a type of gastritis. The patient could probably handle a liquid diet which he is on right now. Be cautious about dietary advance to a more solid diet at least for today. I will check his response, as far as the hemoglobin and hematocrit are concerned, over the next 24 hours or so. I reviewed this case with Dr. Lloyd yesterday. The patient may be transferred to telemetry. Wesley Prabhakar DO,PhD cc: [id number] TT: 12/07/2016 08:44:37 Confirmation # [id number] Dictation # [id number] renuka CELIS
[2016-12-07] MEDS: guaiFENesin 200 mg/10 ml Syrup UD PO PRN ×2 (09:00→20:14)
[2016-12-07] MEDS: cefTRIAXone 1 gm 1 GM/100 ML BAG IVPB SCH (09:00)
[2016-12-07] MEDS: Enoxaparin 40 mg Syringe SC SCH (09:00)
--- NOTE | 2016-12-07 09:18 | CP.PCM.PN ---
<Cam García - Last Filed: 12/07/16 13:39> Subjective - Date & Time of Evaluation Date of Evaluation: 12/07/16 Time of Evaluation: 07:00 - Subjective Subjective: Hospitalist Progress note: Pt seen and examined at bedside. NO acute events overnight. Pt denies any complaints at this time. Denies any sob, cp, or any more episodes of syncope. Pt denies any paz, dizziness, abd pain, n/v/d, urinary or bm changes. Objective - Vital Signs/Intake and Output Vital Signs (last 24 hours): Temp Pulse Resp BP Pulse Ox 98.9 F 79 17 112/72 99 12/07/16 05:27 12/07/16 08:40 12/07/16 08:40 12/07/16 05:18 12/07/16 08:40 Intake and Output: 12/07/16 12/07/16 06:59 18:59 Intake Total 2200 Output Total 0 Balance 2200 - Medications Medications: Current Medications Acetaminophen (Tylenol 325mg Tab) 650 mg PO Q6H PRN PRN Reason: Pain, moderate (4-7) Enoxaparin Sodium (Lovenox) 40 mg SC DAILY [facility] PRN Reason: Protocol Last Admin: 12/07/16 09:00 Dose: 40 mg Guaifenesin (Robitussin) 200 mg PO Q4H PRN PRN Reason: Cough and congestion Last Admin: 12/07/16 09:00 Dose: 200 mg Ceftriaxone Sodium (Rocephin 1 Gram Ivpb) 1 gm in 100 mls @ 100 mls/hr IVPB DAILY [facility] PRN Reason: Protocol Last Admin: 12/07/16 09:00 Dose: 100 mls/hr Multivitamins/Vitamin C 10 ml/Thiamine HCl 100 mg/ Folic Acid 1 mg/ Sodium Chloride 1,011.2 mls @ 100 mls/hr IV .Q10H7M [facility] Stop: 12/09/16 10:36 Last Admin: 12/06/16 21:49 Dose: 100 mls/hr Lorazepam (Ativan) 2 mg IVP Q3H PRN; Protocol PRN Reason: Anxiety Ondansetron HCl (Zofran Inj) 4 mg IVP Q6H PRN PRN Reason: Nausea/Vomiting Pantoprazole Sodium (Protonix Ec Tab) 40 mg PO 0730,1630 [facility] Last Admin: 12/07/16 08:21 Dose: 40 mg Sucralfate (Carafate Oral Susp) 1 gm PO ACHS [facility] Last Admin: 12/07/16 08:21 Dose: 1 gm - Labs Labs: 12/07/16 06:45 12/07/16 07:00 PT 10.6 Seconds (9.9-11.8) 12/06/16 01:00 INR 0.98 (0.93-1.08) 12/06/16 01:00 APTT 20.5 Seconds (23.7-30.8) L 12/06/16 01:00 - Head Exam Head Exam: ATRAUMATIC, NORMAL INSPECTION, NORMOCEPHALIC - Eye Exam Eye Exam: EOMI, Normal appearance, PERRL Pupil Exam: NORMAL ACCOMODATION, PERRL - ENT Exam ENT Exam: Mucous Membranes Moist, Normal Exam - Neck Exam Neck Exam: Full ROM, Normal Inspection. absent: Lymphadenopathy - Respiratory Exam Respiratory Exam: Clear to Ausculation Bilateral, NORMAL BREATHING PATTERN. absent: Rales, Wheezes - Cardiovascular Exam Cardiovascular Exam: REGULAR RHYTHM, +S1, +S2. absent: Murmur - GI/Abdominal Exam GI & Abdominal Exam: Soft, Normal Bowel Sounds. absent: Distended, Tenderness - Extremities Exam Extremities Exam: Full ROM, Normal Capillary Refill, Normal Inspection. absent : Joint Swelling, Pedal Edema - Back Exam Back Exam: NORMAL INSPECTION - Neurological Exam Neurological Exam: Alert, Awake, CN II-XII Intact, Oriented x3 - Psychiatric Exam Psychiatric exam: Normal Affect, Normal Mood - Skin Skin Exam: Dry, Intact, Normal Color, Warm Assessment and Plan - Assessment and Plan (Free Text) Assessment: The patient is a 46 year old man with a history of basal cell carcinoma of the skin, pumonary embolism (s/p IVC filter and SC Lovenox), large hiatal hernia, gastritis and HTN admitted for upper GI bleed, symptomatic anemia, syncope and acute bronchitis. 1. Upper GI Bleed: - Hb of 6.9 this am - 1-2 unit PRBC ordered stat -s/p Upper GI endoscopy revealing: esophagitis, multiple linear gastric ulcers with clean base in fundus, multiple antral erosions, pyloric channel ulcer. -GI consult - Dr. Chisholm rec Carafate with PPI, CLD, cautious in advancing diet -pt reports undergoing an elective EGD and colonoscopy at [facility] recently -CLD -Protonix 40mg PO BID -40mg SC low dose Lovenox as per GI recs (considering the risk/benefit ratio of multiple GI ulcers vs PE/DVT) -Monitor H/H -s/p 2units PRBCs 2. Syncope: - Anemia vs hypotension vs orthostasis vs cardiac vs neuro -H/H 6.9 this am -Check orthstatics - F/u cardiology consult - echo done a few months ago and normal LV function - rec keeping hb of 10, -IVFs -fall precautions -CT-head negative for acute disease -check urine toxicology 3. Acute Bronchitis: -CXR no active dx - f/u rib series - robitussin PRN -Cont rocephine - Azithromycin d/c yesterday due to prolong QT -Duo-nebs PRN 4. History of Pulmonary Embolus (diagnosed 2016): -s/p IVC filter in 2016 -Lovenox 40mg SC low dose anticoagulation as per GI recs 5. HTN: -cont to monitor 6. DVT - Ext US shows partially cannulized thrombis of L popliteal and tibial v - s/p IVC filter - Lovenox 40mg SC - f/u heme consult 7. DVT PPx: IVC Filter / Lovenox / Protonix Case and plan was seen, reviewed and discussed in detail with Dr Pantoja. <Stefany Pantoja - Last Filed: 12/07/16 17:20> Objective - Vital Signs/Intake and Output Vital Signs (last 24 hours): Temp Pulse Resp BP Pulse Ox 98.2 F 80 13 116/70 99 12/07/16 15:49 12/07/16 15:49 12/07/16 15:49 12/07/16 15:49 12/07/16 09:50 Intake and Output: 12/07/16 12/07/16 06:59 18:59 Intake Total 2200 5 Output Total 0 Balance 2200 5 - Medications Medications: Current Medications Acetaminophen (Tylenol 325mg Tab) 650 mg PO Q6H PRN PRN Reason: Pain, moderate (4-7) Enoxaparin Sodium (Lovenox) 40 mg SC DAILY [facility] PRN Reason: Protocol Last Admin: 12/07/16 09:00 Dose: 40 mg Guaifenesin (Robitussin) 200 mg PO Q4H PRN PRN Reason: Cough and congestion Last Admin: 12/07/16 09:00 Dose: 200 mg Ceftriaxone Sodium (Rocephin 1 Gram Ivpb) 1 gm in 100 mls @ 100 mls/hr IVPB DAILY [facility] PRN Reason: Protocol Last Admin: 12/07/16 09:00 Dose: 100 mls/hr Multivitamins/Vitamin C 10 ml/Thiamine HCl 100 mg/ Folic Acid 1 mg/ Sodium Chloride 1,011.2 mls @ 100 mls/hr IV .Q10H7M [facility] Stop: 12/09/16 10:36 Last Admin: 12/07/16 11:52 Dose: 100 mls/hr Lorazepam (Ativan) 2 mg IVP Q3H PRN; Protocol PRN Reason: Anxiety Ondansetron HCl (Zofran Inj) 4 mg IVP Q6H PRN PRN Reason: Nausea/Vomiting Pantoprazole Sodium (Protonix Ec Tab) 40 mg PO 0730,1630 [facility] Last Admin: 12/07/16 17:00 Dose: 40 mg Sucralfate (Carafate Oral Susp) 1 gm PO ACHS [facility] Last Admin: 12/07/16 17:00 Dose: 1 gm - Labs Labs: 12/07/16 06:45 12/07/16 07:00 PT 10.6 Seconds (9.9-11.8) 12/06/16 01:00 INR 0.98 (0.93-1.08) 12/06/16 01:00 APTT 20.5 Seconds (23.7-30.8) L 12/06/16 01:00 Attending/Attestation - Attestation I have personally seen and examined this patient.: Yes I have fully participated in the care of the patient.: Yes I have reviewed all pertinent clinical information, including history, physical exam and plan: Yes Notes (Text): 12/07/16 17:11 46 year old male with past medical history of PE/DVT s/p IVC filter on lovenox, gastritis and GIB presented with UGIB, severe symptomatic anemia and syncope. He is s/p EGD which showed esophagitis, multiple linear gastric ulcers with clean base in fundus, multiple antral erosions, and pyloric channel ulcer. He received 2 units of prbc since admission. Hemoglobin today is 6.9 and he will receive additional blood transfusion. He is on protonix and carafate. Continue with clear liquid diet. He was started on low dose lovenox for history of DVT/PT as per GI after considering the risks vs benefits between GIB/ulcers and DVT/PE. We will request for hematology consultation as well. Syncope was likely secondary to above. Orthostatics are ordered. CT head was negative for acute findings. Cardiology evaluation was appreciated. Serial cardiac enzymes were negative. Last echo was reviewed by Dr. Sears. Today he is complaining of right sided rib pain. Rib series was ordered. He is on rocephine for bronchitis. Azithromycin was discontinued due to prolonged QTc on initial EKG. Stefany Pantoja MD Hospitalist.
[2016-12-07] MEDS: Multivitamin (MVI) 10 ML, Thiamine 100 MG, Folic Acid 1 MG in Sodium Chloride 0.9% 1,00... IV SCH (11:52)
--- NOTE | 2016-12-07 15:10 | RAD ---
PROCEDURE: Radiographs of the Chest and Right Ribs. HISTORY: RUQ and right sided pain COMPARISON: None available. TECHNIQUE: Frontal radiograph of the chest and multiple oblique radiographs of the right ribs were obtained. FINDINGS: RIGHT RIBS: No fracture or focal lesion visualized. LUNGS: Clear. PLEURA: No pneumothorax or pleural fluid. CARDIOVASCULAR: Normal sized heart. No pulmonary vascular congestion. OTHER FINDINGS: None. IMPRESSION: Unremarkable radiographs of the chest and right ribs. No right rib fracture.
--- NOTE | 2016-12-07 19:41 | PN ---
DATE: 12/07/2016 REASON FOR CONSULTATION: Abnormal EKG, dyspnea on exertion, severe anemia, admitting hemoglobin 5.3. 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 The patient underwent endoscopy, found to be an ulcer. A re peat hemoglobin after packed RBC transfusion this morning is 6.9, suggestive of some ongoing bleeding . PHYSICAL EXAMINATION: VITAL SIGNS: Temperature afebrile, heart rate 87, blood pressure 116/70. HEENT: PERRLA. Extraocular muscles intact. NECK: Supple. No carotid bruits. No thyromegaly. CHEST: Clear to auscultation. HEART: S1, S2 regular. ABDOMEN: Soft. EXTREMITIES: Clubbing, cyanosis negative. LABORATORY DATA: Blood workup as follows: WBC , hemoglobin 6.9, hematocrit 23.3, platelet coun t 228. Chemistry shows sodium 141, potassium 4, chloride , carbon dioxide 26, anion gap of 11, BUN 13, creatinine 1.0. IMPRESSION: No evidence of acute myocardial infarction, dyspnea on exertion secondary to severe anem ia, gastrointestinal bleed, ulcer; history of pulmonary embolus, history of inferior vena cava filter , history of Lovenox at home. RECOMMENDATION: Continue packed RBC transfusion as per GI and keep hemoglobin around 10. For risk s tratification the patient can have a stress test as an outpatient when the patient is stable. Right now, the patient is hemodynamically stable. Will follow with you. Thank you, Dr. Pantoja, for providing me the opportunity in taking care of the patient. Lucie Sears MD cc:Stefany Pantoja MD [id number] TT: 12/07/2016 19:40:17 Confirmation # [id number] Dictation # [id number] dn
[2016-12-07 20:37] LABS: ADD MANUAL DIFF? NO
[2016-12-07 20:40] LABS: BASO # 0.04 K/mm3 (0.0-2.0); BASO % 0.5 % (0.0-3.0); EOS # 0.4 (0.0-0.7); EOS % 4.6 % (1.5-5.0); GRAN # 4.72 (1.4-6.5); GRAN % 60.2 % (50.0-68.0); HEMATOCRIT 26.4 % (42.0-52.0); LYMPH % 25.5 % (22.0-35.0); MEAN CELL VOLUME 74.6 fL (80.0-105.0); MEAN CORPUSCULAR HEMOGLOBIN 23.2 pg (25.0-35.0); MEAN CORPUSCULAR HGB CONC 31.1 g/dl (31.0-37.0); MEAN PLATELET VOLUME 8.7 fl (7.0-11.0); MONO # 0.7 (0.1-0.6); MONO % 9.2 % (1.0-6.0); PLATELET COUNT 243 10^3/uL (120.0-450.0); RED CELL DISTRIBUTION WIDTH 20.7 % (11.5-14.5); WHITE BLOOD COUNT 7.8 10^3/ul (4.5-11.0)
[2016-12-08] MEDS: Multivitamin (MVI) 10 ML, Thiamine 100 MG, Folic Acid 1 MG in Sodium Chloride 0.9% 1,00... IV SCH (01:24)
[2016-12-08 02:03] LABS: HEMATOCRIT 25.3 % (42.0-52.0); MEAN CELL VOLUME 74.2 fL (80.0-105.0); MEAN CORPUSCULAR HEMOGLOBIN 22.6 pg (25.0-35.0); MEAN CORPUSCULAR HGB CONC 30.4 g/dl (31.0-37.0); MEAN PLATELET VOLUME 8.1 fl (7.0-11.0); RED CELL DISTRIBUTION WIDTH 20.8 % (11.5-14.5); WHITE BLOOD COUNT 7.2 10^3/ul (4.5-11.0)
[2016-12-08 05:02] VITALS: BP 127/69
[2016-12-08] MEDS: guaiFENesin 200 mg/10 ml Syrup UD PO PRN (05:25)
[2016-12-08 06:47] LABS: ADD MANUAL DIFF? NO
[2016-12-08 06:51] LABS: BASO # 0.04 K/mm3 (0.0-2.0); BASO % 0.6 % (0.0-3.0); EOS # 0.3 (0.0-0.7); EOS % 4.7 % (1.5-5.0); GRAN # 3.54 (1.4-6.5); GRAN % 55.7 % (50.0-68.0); HEMATOCRIT 27.6 % (42.0-52.0); LYMPH # 1.8 (1.2-3.4); LYMPH % 27.9 % (22.0-35.0); MEAN CELL VOLUME 75.4 fL (80.0-105.0); MEAN CORPUSCULAR HEMOGLOBIN 23.2 pg (25.0-35.0); MEAN CORPUSCULAR HGB CONC 30.8 g/dl (31.0-37.0); MEAN PLATELET VOLUME 8.8 fl (7.0-11.0); MONO # 0.7 (0.1-0.6); MONO % 11.1 % (1.0-6.0); PLATELET COUNT 205 10^3/uL (120.0-450.0); RED CELL DISTRIBUTION WIDTH 20.5 % (11.5-14.5); WHITE BLOOD COUNT 6.4 10^3/ul (4.5-11.0)
--- NOTE | 2016-12-08 06:58 | CP.PCM.PN ---
Subjective - Date & Time of Evaluation Date of Evaluation: 12/08/16 Time of Evaluation: 14:00 - Subjective Subjective: pt is admitted for gi bleed /pud . called by nurse H/H is 7.01/22 pt denies complaints.no obvious bleeding . Objective - Vital Signs/Intake and Output Vital Signs (last 24 hours): Temp Pulse Resp BP Pulse Ox 97.7 F 73 18 127/69 99 12/08/16 04:57 12/08/16 04:57 12/08/16 04:57 12/08/16 04:57 12/07/16 09:50 Intake and Output: 12/07/16 12/08/16 18:59 06:59 Intake Total 1655 325 Balance 1655 325 - Medications Medications: Current Medications Acetaminophen (Tylenol 325mg Tab) 650 mg PO Q6H PRN PRN Reason: Pain, moderate (4-7) Enoxaparin Sodium (Lovenox) 40 mg SC DAILY [facility] PRN Reason: Protocol Last Admin: 12/07/16 09:00 Dose: 40 mg Guaifenesin (Robitussin) 200 mg PO Q4H PRN PRN Reason: Cough and congestion Last Admin: 12/08/16 05:25 Dose: 200 mg Ceftriaxone Sodium (Rocephin 1 Gram Ivpb) 1 gm in 100 mls @ 100 mls/hr IVPB DAILY [facility] PRN Reason: Protocol Last Admin: 12/07/16 09:00 Dose: 100 mls/hr Multivitamins/Vitamin C 10 ml/Thiamine HCl 100 mg/ Folic Acid 1 mg/ Sodium Chloride 1,011.2 mls @ 100 mls/hr IV .Q10H7M [facility] Stop: 12/09/16 10:36 Last Admin: 12/08/16 01:24 Dose: 100 mls/hr Lorazepam (Ativan) 2 mg IVP Q3H PRN; Protocol PRN Reason: Anxiety Ondansetron HCl (Zofran Inj) 4 mg IVP Q6H PRN PRN Reason: Nausea/Vomiting Pantoprazole Sodium (Protonix Ec Tab) 40 mg PO 0730,1630 [facility] Last Admin: 12/07/16 17:00 Dose: 40 mg Sucralfate (Carafate Oral Susp) 1 gm PO ACHS [facility] Last Admin: 12/07/16 21:29 Dose: 1 gm - Labs Labs: 12/08/16 06:35 12/07/16 07:00 PT 10.6 Seconds (9.9-11.8) 12/06/16 01:00 INR 0.98 (0.93-1.08) 12/06/16 01:00 APTT 20.5 Seconds (23.7-30.8) L 12/06/16 01:00 - Constitutional Appears: No Acute Distress - Head Exam Head Exam: NORMOCEPHALIC - Eye Exam Eye Exam: PERRL Pupil Exam: PERRL - ENT Exam ENT Exam: Mucous Membranes Moist - Neck Exam Neck Exam: Full ROM - Respiratory Exam Respiratory Exam: NORMAL BREATHING PATTERN - Cardiovascular Exam Cardiovascular Exam: REGULAR RHYTHM - GI/Abdominal Exam GI & Abdominal Exam: Normal Bowel Sounds - Rectal Exam Rectal Exam: Deferred - Extremities Exam Extremities Exam: Full ROM - Neurological Exam Neurological Exam: Awake, CN II-XII Intact, Oriented x3 - Psychiatric Exam Psychiatric exam: Normal Affect - Skin Skin Exam: Dry Assessment and Plan - Assessment and Plan (Free Text) Assessment: anemia of blood loss.H/H 7.7/25. pud. Plan: TRANSFUSE 1 unit of prbc. repeat cbc in am.
--- NOTE | 2016-12-08 07:21 | PN ---
DATE: 12/08/2016 SUBJECTIVE: I examined the patient this morning. He is a 46-year-old obese white male admitted with complaints of severe anemia, shortness of breath, abdominal pain. The patient is still experiencing some epigastric discomfort. Nausea has dissipated. He is able to handle small volumes of liquid. There has been no overt rectal bleeding noted. No hematemesis noted also. PHYSICAL EXAMINATION: VITAL SIGNS: I reviewed this patient's vital signs. HEENT: Noncontributory. LUNGS: Decreased breath sounds basilar. HEART: Regular rhythm. ABDOMEN: Significant for being protuberant. process tank tender in the epigastric area and right upper quadrant. LABORATORY DATA: Indicate a slight drop in his hemoglobin last night for which he was transfused this morning. OVERALL ASSESSMENT: This is a 46-year-old white male with a recent evaluation significant for multiple ulcerations in the fundus, hiatal hernia as well as a pyloric channel ulcer. The patient is currently on Carafate suspension as well as PPI therapy. He must practice antireflux precautions. The patient was again made aware of endoscopy findings. Biopsy of which will not be ready for another few days yet. At some later date might be worthwhile to have this patient to evaluated for Helicobacter pylori on an outpatient basis that this probably by breath test or a stool test. Note that after his endoscopy procedure I reviewed the issue of his chronic anticoagulation with Dr. Mata as well as the medical claims representative. In my opinion anticoagulation prophylaxis should be resumed within 24 hours after the procedure to avoid potential cardiopulmonary complications. PPI with carafate should be used together for at least 3-4 weeks then subsequently a PPI alone. Wesley Prabhakar DO, PhD cc: [id number] TT: 12/08/2016 07:20:15 Confirmation # [id number] Dictation # [id number] manuel CELIS
[2016-12-08] MEDS: Pantoprazole 40 mg EC Tab PO SCH (08:05)
[2016-12-08] MEDS: cefTRIAXone 1 gm 1 GM/100 ML BAG IVPB SCH (10:04)
[2016-12-08] MEDS: Enoxaparin 40 mg Syringe SC SCH (10:05)
[2016-12-08] MEDS: Sucralfate 1 gm/10 ml Oral Susp UD PO SCH (10:06)
[2016-12-08 11:45] VITALS: TEMP 97.6
[2016-12-08 11:49] LABS: ALB/GLOB RATIO 1.2 (1.1-1.8); ALKALINE PHOSPHATASE 60 U/L (38-133); ALT/SGPT 33 U/L (7-56); AST/SGOT 22 U/L (15-59); BILIRUBIN,TOTAL 0.6 mg/dL (0.2-1.3); BLOOD UREA NITROGEN 12 mg/dL (7-21); CALCIUM 8.6 mg/dL (8.4-10.5); CARBON DIOXIDE 25 mmol/L (21-33); CHLORIDE 107 mmol/L (98-107); GFR AFRICAN-AMERICAN > 60; GLUCOSE,RANDOM 101 mg/dL (70-110); MAGNESIUM 2.1 mg/dL (1.7-2.2); PHOSPHOROUS 3.4 mg/dL (2.5-4.5); SODIUM 141 mmol/L (132-148); TOTAL PROTEIN 6.4 g/dL (5.8-8.3)
[2016-12-08 12:00] VITALS: PULSE 78; RESP 15
--- NOTE | 2016-12-08 15:40 | CP.PCM.DIS ---
<Tom Leonard - Last Filed: 12/08/16 15:36> Provider - Provider Date of Admission: 12/06/16 04:13 Attending physician: Stefany Pantoja MD Primary care physician: NO PRIMARY CARE PROVIDER Consults: GI: Vanna Cardio: Alvares Heme-onc: Zakia Time Spent in preparation of Discharge (in minutes): 35 Diagnosis - Discharge Diagnosis (1) Syncope and collapse Status: Resolved Priority: High (2) Upper GI hemorrhage Status: Acute Priority: High (3) Symptomatic anemia Status: Acute Priority: High (4) Bronchitis Status: Acute Priority: Medium (5) HTN (hypertension) Status: Chronic Priority: Medium (6) Pulmonary embolism Status: Chronic Priority: Medium Comment: Hx of PE Hospital Course - Lab Results Lab Results: Most Recent Lab Values WBC 6.4 10^3/ul (4.5-11.0) 12/08/16 06:35 RBC 3.66 10^6/uL (3.5-6.1) 12/08/16 06:35 Hgb 8.5 gm/dL (14.0-18.0) L 12/08/16 06:35 Hct 27.6 % (42.0-52.0) L 12/08/16 06:35 MCV 75.4 fL (80.0-105.0) L 12/08/16 06:35 MCH 23.2 pg (25.0-35.0) L 12/08/16 06:35 MCHC 30.8 g/dl (31.0-37.0) L 12/08/16 06:35 RDW 20.5 % (11.5-14.5) H 12/08/16 06:35 Plt Count 205 10^3/uL (120.0-450.0) 12/08/16 06:35 MPV 8.8 fl (7.0-11.0) 12/08/16 06:35 Gran % 55.7 % (50.0-68.0) 12/08/16 06:35 Lymph % (Auto) 27.9 % (22.0-35.0) 12/08/16 06:35 [place] % (Auto) 11.1 % (1.0-6.0) H 12/08/16 06:35 Eos % (Auto) 4.7 % (1.5-5.0) 12/08/16 06:35 Baso % (Auto) 0.6 % (0.0-3.0) 12/08/16 06:35 Gran # 3.54 (1.4-6.5) 12/08/16 06:35 Lymph # 1.8 (1.2-3.4) 12/08/16 06:35 [place] # 0.7 (0.1-0.6) H 12/08/16 06:35 Eos # 0.3 (0.0-0.7) 12/08/16 06:35 Baso # 0.04 K/mm3 (0.0-2.0) 12/08/16 06:35 PT 10.6 Seconds (9.9-11.8) 12/06/16 01:00 INR 0.98 (0.93-1.08) 12/06/16 01:00 APTT 20.5 Seconds (23.7-30.8) L 12/06/16 01:00 pO2 30 mm/Hg (30-55) 12/06/16 15:35 VBG pH 7.32 (7.32-7.43) 12/06/16 15:35 VBG pCO2 54.0 (40-60) 12/06/16 15:35 VBG HCO3 27.8 mmol/l (21-28) 12/06/16 15:35 VBG Total CO2 29.5 mmol.L (22-28) H 12/06/16 15:35 VBG O2 Sat (Calc) 59.0 % (40-65) 12/06/16 15:35 VBG Base Excess 0.7 mmol/L (0.0-2.0) 12/06/16 15:35 VBG Potassium 5.0 mmol/L (3.6-5.2) 12/06/16 15:35 Sodium 140.0 mmol/L (132-148) 12/06/16 15:35 Chloride 111.0 mmol/L (98-107) H 12/06/16 15:35 Glucose 91 mg/dl (75-110) 12/06/16 15:35 Lactate 0.8 mmol/L (0.7-2.1) 12/06/16 15:35 FiO2 21.0 % 12/06/16 15:35 Sodium 141 mmol/L (132-148) 12/08/16 06:30 Potassium 4.0 mmol/L (3.6-5.0) 12/08/16 06:30 Chloride 107 mmol/L (98-107) 12/08/16 06:30 Carbon Dioxide 25 mmol/L (21-33) 12/08/16 06:30 Anion Gap 13 (10-20) 12/08/16 06:30 BUN 12 mg/dL (7-21) 12/08/16 06:30 Creatinine 0.9 mg/dL (0.5-1.4) 12/08/16 06:30 Est GFR ( Amer) > 60 12/08/16 06:30 Est GFR (Non-Af Amer) > 60 12/08/16 06:30 Random Glucose 101 mg/dL (70-110) 12/08/16 06:30 Hemoglobin A1c 5.5 % (4.2-6.5) 12/07/16 06:45 Lactic Acid 1.3 mmol/L (0.7-2.1) 12/06/16 04:45 Calcium 8.6 mg/dL (8.4-10.5) 12/08/16 06:30 Phosphorus 3.4 mg/dL (2.5-4.5) 12/08/16 06:30 Magnesium 2.1 mg/dL (1.7-2.2) 12/08/16 06:30 Total Bilirubin 0.6 mg/dL (0.2-1.3) 12/08/16 06:30 AST 22 U/L (15-59) 12/08/16 06:30 ALT 33 U/L (7-56) 12/08/16 06:30 Alkaline Phosphatase 60 U/L (38-133) 12/08/16 06:30 Lactate Dehydrogenase 476 U/L (333-699) 12/06/16 12:05 Total Creatine Kinase 319 U/L (35-230) H 12/06/16 12:05 CK-MB (CK-2) 1.7 ng/mL (0.0-3.6) 12/06/16 12:05 CK-MB (CK-2) % Cancelled 12/06/16 01:00 Troponin I < 0.01 ng/mL D 12/06/16 12:05 NT-Pro-B Natriuret Pep 156 pg/mL (0-450) 12/06/16 04:45 Total Protein 6.4 g/dL (5.8-8.3) 12/08/16 06:30 Albumin 3.5 g/dL (3.0-4.8) 12/08/16 06:30 Globulin 2.9 gm/dL 12/08/16 06:30 Albumin/Globulin Ratio 1.2 (1.1-1.8) 12/08/16 06:30 Triglycerides 118 mg/dL (35-160) 12/07/16 06:45 Cholesterol 150 mg/dL (130-200) 12/07/16 06:45 LDL Cholesterol Direct 98 mg/dL (0-129) 12/07/16 06:45 HDL Cholesterol 29 mg/dL (29-60) 12/07/16 06:45 Procalcitonin < 0.05 NG/ML (0.19-0.49) L 12/06/16 04:45 TSH 3rd Generation 3.05 mIU/mL (0.46-4.68) 12/07/16 06:45 Venous Blood Potassium 5.0 mmol/L (3.6-5.2) 12/06/16 15:35 Urine Color Light yellow (YELLOW) 12/06/16 02:43 Urine Appearance Clear (CLEAR) 12/06/16 02:43 Urine pH 6.0 (4.7-8.0) 12/06/16 02:43 Ur Specific [place] 1.010 (1.005-1.035) 12/06/16 02:43 Urine Protein Negative mg/dL (<30 mg/dL) 12/06/16 02:43 Urine Glucose (UA) Negative mg/dL (NEGATIVE) 12/06/16 02:43 Urine Ketones Negative mg/dL (NEGATIVE) 12/06/16 02:43 Urine Blood Negative (NEGATIVE) 12/06/16 02:43 Urine Nitrate Negative (NEGATIVE) 12/06/16 02:43 Urine Bilirubin Negative (NEGATIVE) 12/06/16 02:43 Urine Urobilinogen 0.2 E.U./dL (<1 E.U./dL) 12/06/16 02:43 Ur Leukocyte Esterase Negative [place]/uL (NEGATIVE) 12/06/16 02:43 Urine Opiates Screen Negative (NEGATIVE) 12/06/16 06:00 Urine Methadone Screen Negative (NEGATIVE) 12/06/16 06:00 Ur Barbiturates Screen Negative (NEGATIVE) 12/06/16 06:00 Ur Phencyclidine Scrn Negative (NEGATIVE) 12/06/16 06:00 Ur Amphetamines Screen Negative (NEGATIVE) 12/06/16 06:00 U Benzodiazepines Scrn Negative (NEGATIVE) 12/06/16 06:00 U Oth Cocaine Metabols Positive (NEGATIVE) H 12/06/16 06:00 U Cannabinoids Screen Negative (NEGATIVE) 12/06/16 06:00 Blood Type B POSITIVE 12/08/16 05:30 Antibody Screen Negative 12/08/16 05:30 Crossmatch See Detail 12/08/16 05:30 BBK History Checked Patient has bt 12/08/16 05:30 - Hospital Course Hospital Course: The patient is a 46 year old man with a history of basal cell carcinoma of the skin, pumonary embolism (s/p IVC filter and SC Lovenox), large hiatal hernia, gastritis and HTN who presents with 1 week of worsening SOB and a syncopal episode which occurred at around 21: 00 yesterday evening. He was found to have persistent DVT, and a Hgb of 5.3. At that time, patient was transfused with 2 units of pRBCs, which improved his Hgb to 7.0. He has required two more transfusions of 1 unit pRBCs each of the following days, with a max Hgb of 8.5. While here, patient was also seen by GI and Cardio. Cardio recommended an outpatient stress test, and GI recommended an outpt workup for possible H. pylori in the setting of multiple bleeding ulcers on Endoscopy (done previously as an outpt). 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 Risks of leaving against medical advice, including new clots, new/worsening bleeding, shock, and were explained to patient, who expressed understanding but still stated his intention to leave AMA. He was given a script for 5mg Coumadin for 4 days, and was intructed to follow up with either his PCP or with the [facility] for f/u of INR and blood levels within 4 days. He expressed understanding and agreement. Patient was then discharged against Medical Advice. Patient seen, reviewed, and discussed with attending, Dr. Umana. Discharge Exam - Additional Findings Additional findings: - General Exam Awake and alert, no acute distress, resting comfortably in bed - Head Exam ATRAUMATIC, NORMAL INSPECTION, NORMOCEPHALIC - Eye Exam EOMI, Normal appearance. Absent: Pupil irregularity/unequal, Scleral icterus - ENT Exam Mucous Membranes Moist, Normal Exam - Neck Exam Full ROM, Normal Inspection - Respiratory Exam Clear to Ausculation Bilateral, NORMAL BREATHING PATTERN. absent: Rales, Wheezes, Ronchi - Cardiovascular Exam REGULAR RHYTHM, +S1, +S2. absent: Murmur, Tachycardia, Bradycardia, Irregular Rhythm - GI/Abdominal Exam Soft, Normal Bowel Sounds, Reports some mild RUQ/inferior chest wall tenderness (not worse with palpation, no overt signs of pain). absent: Distended - Extremities Exam Full ROM, Normal Capillary Refill, Normal Inspection. absent: Joint Swelling, Pedal Edema - Back Exam NORMAL INSPECTION - Neurological Exam Alert, Awake, Oriented x3, Following commands appropriately, Moving all extremities spontaneously - Psychiatric Exam Psychiatric exam: Normal Affect, Normal Mood - Skin Skin Exam: Dry, Intact, Normal Color, Warm Discharge Plan - Follow Up Plan Condition: GOOD Disposition: AGAINST MEDICAL ADVICE Patient education suggested?: Yes Instructions: Pulmonary Embolism (DC), Gastrointestinal Bleeding (DC), Deep Venous Thrombosis (DC), Hypotension (DC) Additional Instructions: Please fill and take Coumadin script as instructed. Follow up with either your PMD or the with [facility] within 4 days to assess your blood thinner level and blood level. Please return to the ED immediately with worsening or new concerning symptoms Referrals: PCP,NO [Primary Care Provider] - [facility] at [facility] [place] [Outside] <Aristeo Umana - Last Filed: 12/08/16 21:21> Provider - Provider Date of Admission: 12/06/16 04:13 Attending physician: Stefany Pantoja MD Primary care physician: NO PRIMARY CARE PROVIDER Hospital Course - Lab Results Lab Results: Most Recent Lab Values WBC 6.4 10^3/ul (4.5-11.0) 12/08/16 06:35 RBC 3.66 10^6/uL (3.5-6.1) 12/08/16 06:35 Hgb 8.5 gm/dL (14.0-18.0) L 12/08/16 06:35 Hct 27.6 % (42.0-52.0) L 12/08/16 06:35 MCV 75.4 fL (80.0-105.0) L 12/08/16 06:35 MCH 23.2 pg (25.0-35.0) L 12/08/16 06:35 MCHC 30.8 g/dl (31.0-37.0) L 12/08/16 06:35 RDW 20.5 % (11.5-14.5) H 12/08/16 06:35 Plt Count 205 10^3/uL (120.0-450.0) 12/08/16 06:35 MPV 8.8 fl (7.0-11.0) 12/08/16 06:35 Gran % 55.7 % (50.0-68.0) 12/08/16 06:35 Lymph % (Auto) 27.9 % (22.0-35.0) 12/08/16 06:35 [place] % (Auto) 11.1 % (1.0-6.0) H 12/08/16 06:35 Eos % (Auto) 4.7 % (1.5-5.0) 12/08/16 06:35 Baso % (Auto) 0.6 % (0.0-3.0) 12/08/16 06:35 Gran # 3.54 (1.4-6.5) 12/08/16 06:35 Lymph # 1.8 (1.2-3.4) 12/08/16 06:35 [place] # 0.7 (0.1-0.6) H 12/08/16 06:35 Eos # 0.3 (0.0-0.7) 12/08/16 06:35 Baso # 0.04 K/mm3 (0.0-2.0) 12/08/16 06:35 PT 10.6 Seconds (9.9-11.8) 12/06/16 01:00 INR 0.98 (0.93-1.08) 12/06/16 01:00 APTT 20.5 Seconds (23.7-30.8) L 12/06/16 01:00 pO2 30 mm/Hg (30-55) 12/06/16 15:35 VBG pH 7.32 (7.32-7.43) 12/06/16 15:35 VBG pCO2 54.0 (40-60) 12/06/16 15:35 VBG HCO3 27.8 mmol/l (21-28) 12/06/16 15:35 VBG Total CO2 29.5 mmol.L (22-28) H 12/06/16 15:35 VBG O2 Sat (Calc) 59.0 % (40-65) 12/06/16 15:35 VBG Base Excess 0.7 mmol/L (0.0-2.0) 12/06/16 15:35 VBG Potassium 5.0 mmol/L (3.6-5.2) 12/06/16 15:35 Sodium 140.0 mmol/L (132-148) 12/06/16 15:35 Chloride 111.0 mmol/L (98-107) H 12/06/16 15:35 Glucose 91 mg/dl (75-110) 12/06/16 15:35 Lactate 0.8 mmol/L (0.7-2.1) 12/06/16 15:35 FiO2 21.0 % 12/06/16 15:35 Sodium 141 mmol/L (132-148) 12/08/16 06:30 Potassium 4.0 mmol/L (3.6-5.0) 12/08/16 06:30 Chloride 107 mmol/L (98-107) 12/08/16 06:30 Carbon Dioxide 25 mmol/L (21-33) 12/08/16 06:30 Anion Gap 13 (10-20) 12/08/16 06:30 BUN 12 mg/dL (7-21) 12/08/16 06:30 Creatinine 0.9 mg/dL (0.5-1.4) 12/08/16 06:30 Est GFR ( Amer) > 60 12/08/16 06:30 Est GFR (Non-Af Amer) > 60 12/08/16 06:30 Random Glucose 101 mg/dL (70-110) 12/08/16 06:30 Hemoglobin A1c 5.5 % (4.2-6.5) 12/07/16 06:45 Lactic Acid 1.3 mmol/L (0.7-2.1) 12/06/16 04:45 Calcium 8.6 mg/dL (8.4-10.5) 12/08/16 06:30 Phosphorus 3.4 mg/dL (2.5-4.5) 12/08/16 06:30 Magnesium 2.1 mg/dL (1.7-2.2) 12/08/16 06:30 Total Bilirubin 0.6 mg/dL (0.2-1.3) 12/08/16 06:30 AST 22 U/L (15-59) 12/08/16 06:30 ALT 33 U/L (7-56) 12/08/16 06:30 Alkaline Phosphatase 60 U/L (38-133) 12/08/16 06:30 Lactate Dehydrogenase 476 U/L (333-699) 12/06/16 12:05 Total Creatine Kinase 319 U/L (35-230) H 12/06/16 12:05 CK-MB (CK-2) 1.7 ng/mL (0.0-3.6) 12/06/16 12:05 CK-MB (CK-2) % Cancelled 12/06/16 01:00 Troponin I < 0.01 ng/mL D 12/06/16 12:05 NT-Pro-B Natriuret Pep 156 pg/mL (0-450) 12/06/16 04:45 Total Protein 6.4 g/dL (5.8-8.3) 12/08/16 06:30 Albumin 3.5 g/dL (3.0-4.8) 12/08/16 06:30 Globulin 2.9 gm/dL 12/08/16 06:30 Albumin/Globulin Ratio 1.2 (1.1-1.8) 12/08/16 06:30 Triglycerides 118 mg/dL (35-160) 12/07/16 06:45 Cholesterol 150 mg/dL (130-200) 12/07/16 06:45 LDL Cholesterol Direct 98 mg/dL (0-129) 12/07/16 06:45 HDL Cholesterol 29 mg/dL (29-60) 12/07/16 06:45 Procalcitonin < 0.05 NG/ML (0.19-0.49) L 12/06/16 04:45 TSH 3rd Generation 3.05 mIU/mL (0.46-4.68) 12/07/16 06:45 Venous Blood Potassium 5.0 mmol/L (3.6-5.2) 12/06/16 15:35 Urine Color Light yellow (YELLOW) 12/06/16 02:43 Urine Appearance Clear (CLEAR) 12/06/16 02:43 Urine pH 6.0 (4.7-8.0) 12/06/16 02:43 Ur Specific [place] 1.010 (1.005-1.035) 12/06/16 02:43 Urine Protein Negative mg/dL (<30 mg/dL) 12/06/16 02:43 Urine Glucose (UA) Negative mg/dL (NEGATIVE) 12/06/16 02:43 Urine Ketones Negative mg/dL (NEGATIVE) 12/06/16 02:43 Urine Blood Negative (NEGATIVE) 12/06/16 02:43 Urine Nitrate Negative (NEGATIVE) 12/06/16 02:43 Urine Bilirubin Negative (NEGATIVE) 12/06/16 02:43 Urine Urobilinogen 0.2 E.U./dL (<1 E.U./dL) 12/06/16 02:43 Ur Leukocyte Esterase Negative [place]/uL (NEGATIVE) 12/06/16 02:43 Urine Opiates Screen Negative (NEGATIVE) 12/06/16 06:00 Urine Methadone Screen Negative (NEGATIVE) 12/06/16 06:00 Ur Barbiturates Screen Negative (NEGATIVE) 12/06/16 06:00 Ur Phencyclidine Scrn Negative (NEGATIVE) 12/06/16 06:00 Ur Amphetamines Screen Negative (NEGATIVE) 12/06/16 06:00 U Benzodiazepines Scrn Negative (NEGATIVE) 12/06/16 06:00 U Oth Cocaine Metabols Positive (NEGATIVE) H 12/06/16 06:00 U Cannabinoids Screen Negative (NEGATIVE) 12/06/16 06:00 Blood Type B POSITIVE 12/08/16 05:30 Antibody Screen Negative 12/08/16 05:30 Crossmatch See Detail 12/08/16 05:30 BBK History Checked Patient has bt 12/08/16 05:30 Attending/Attestation - Attestation I have personally seen and examined this patient.: Yes I have fully participated in the care of the patient.: Yes I have reviewed all pertinent clinical information, including history, physical exam and plan: Yes Notes (Text): 12/08/16 21:20 Patient seen and examined at bedside with the resident. H/H stable post transfusion. low dose AC with lovenox started. Case discussed with GI attending and agree to start low dose AC with coumadin. Patient decided to leave AMA, risks clearly explained. Follow up instructions and scripts given nevertheless. Agree with the follow up plan explained to the patient
== END 2016-12-08 13:00 | disposition left against medical advice (07) | DRG 174 ==
LOC: ED 00:27 → ERH 04:13 → CCU 07:06
PROVIDERS: ADMIT Hospitalist; ATTEND Internal Medicine
PROC: 0DB68ZX Excision of Stomach, Via Natural or Artificial Opening Endoscopic, Diagnostic (ICD-10-PCS; 2016-12-06)
PROC: 30233N1 Transfusion of Nonautologous Red Blood Cells into Peripheral Vein, Percutaneous Approach (ICD-10-PCS; 2016-12-06)
PROC: 0DB98ZX Excision of Duodenum, Via Natural or Artificial Opening Endoscopic, Diagnostic (ICD-10-PCS; principal; 2016-12-06 13:00)
DX: K92.2 Gastrointestinal hemorrhage, unspecified (principal); I08.3 Combined rheumatic disorders of mitral, aortic and tricuspid valves; K25.9 Gastric ulcer, unspecified as acute or chronic, without hemorrhage or perforation; D50.0 Iron deficiency anemia secondary to blood loss (chronic); J20.9 Acute bronchitis, unspecified; I10 Essential (primary) hypertension; K44.9 Diaphragmatic hernia without obstruction or gangrene; K29.80 Duodenitis without bleeding; K21.0 Gastro-esophageal reflux disease with esophagitis; K29.50 Unspecified chronic gastritis without bleeding; B96.81 Helicobacter pylori [H. pylori] as the cause of diseases classified elsewhere; R55 Syncope and collapse; Z79.01 Long term (current) use of anticoagulants; Z86.718 Personal history of other venous thrombosis and embolism; Z86.711 Personal history of pulmonary embolism; Z91.14 Patient's other noncompliance with medication regimen; Z85.820 Personal history of malignant melanoma of skin

== ENCOUNTER 2016-12-19 20:00 | Emergency (ER) | payer MEDICAID ==
[2016-12-19 20:15] VITALS: BMI 32.8
[2016-12-19] MEDS ORDERED: Multivitamin (MVI) 10 ML, Thiamine 100 MG, Folic Acid 1 MG in Sodium Chloride 0.9% 1,00... IV ONE (20:23)
--- NOTE | 2016-12-19 20:45 | ED PDOC ---
"Arrival/HPI - General Chief Complaint: Alcohol Ingestion Time Seen by Provider: 12/19/16 20:15 Historian: Patient - History of Present Illness Narrative History of Present Illness (Text): 12/19/16 20:29 46 y/o male, pmh incliuding dvt/pe/anemia/gerd/basal cell cancer/gerd/anemia, allergic to iron sucrose, psychiatric history of cocaine and alcohol abuse, biba for etoh intoxication with the head injury. Pt. stated that he admits he has been drinking today, fall on the rt. posterior head with no laceration or abrasion, had the sutures on the left sided facial region about 6-7 days ago and request to have it remove as he was told to remove it, no chest pain or shortness of breath, no palpitation, no numbness or tingling, no dizziness, no change in vision, no other medical or psychological complaints. Past Medical History - Provider Review Nursing Documentation Reviewed: Yes - Infectious Disease Hx of Infectious Diseases: None - Tetanus Immunization Tetanus Immunization: Unknown - Cardiac Hx Cardiac Disorders: Yes Hx Hypertension: Yes Hx Peripheral Vascular Disease: Yes - Pulmonary Hx Bronchitis: Yes Hx Pulmonary Embolism: Yes - Neurological Hx Neurological Disorder: Yes (SYNCOPE 03-25-16) - HEENT Hx HEENT Disorder: No - Renal Hx Renal Disorder: No - Endocrine/Metabolic Hx Endocrine Disorders: No - Hematological/Oncological Hx Blood Disorders: Yes Hx Anemia: Yes 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) - Integumentary Hx Dermatological Disorder: Yes (TATTOOS) Hx Melanoma: Yes Other/Comment: HAS SUTURES L SIDE OF FACE - Musculoskeletal/Rheumatological Hx Musculoskeletal Disorders: Yes Hx Degenerative Joint Disease: Yes Hx Falls: Yes Other/Comment: CERVICAL AND LUMBAR RADICULOPATHY - Gastrointestinal Hx Gastrointestinal Disorders: Yes Hx Diverticulitis: Yes Hx Gastroesophageal Reflux: Yes Other/Comment: GASTRITIS, HIATAL HERNIA - Genitourinary/Gynecological Hx Genitourinary Disorders: No - Psychiatric Hx Psychophysiologic Disorder: Yes (cocaine use) Hx Depression: No Hx Emotional Abuse: No Hx Physical Abuse: No Hx Substance Use: Yes (ADMITS TO CURRENT USE OF COCAINE) - Surgical History Other/Comment: IVC FILTER - Anesthesia Hx Anesthesia: No - Suicidal Assessment Feels Threatened In Home Enviroment: No Family/Social History - Physician Review Nursing Documentation Reviewed: Yes Family/Social History: Unknown Family HX Smoking Status: Never Smoked Hx Alcohol Use: Yes (socially/about 2-3x/wk) Hx Substance Use: Yes (ADMITS TO CURRENT USE OF COCAINE) Hx Substance Use Treatment: No Allergies/Home Meds Allergies/Adverse Reactions: Allergies iron sucrose complex [From Venofer] Allergy (Severe, Verified 12/19/16 20:09) RASH, ITCHING Home Medications: Home Meds Medication Instructions Recorded Confirmed No Known Home Med 12/19/16 12/19/16 Review of Systems - Review of Systems Constitutional: absent: Fatigue, Fevers Eyes: absent: Vision Changes ENT: absent: Hearing Changes Respiratory: absent: SOB, Cough Cardiovascular: absent: Chest Pain Gastrointestinal: absent: Abdominal Pain, Nausea, Vomiting, Anorexia Genitourinary Male: absent: Dysuria, Frequency, Hematuria, Urinary Output Changes Skin: absent: Rash, Pruritis, Skin Lesions, Laceration, Abscess, Ulcer, Cellulitis Neurological: absent: Headache, Dizziness, Focal Weakness, Gait Changes Psychiatric: absent: Anxiety, Depression, Suicidal Ideation Physical Exam Vital Signs Reviewed: Yes Vital Signs Temp Pulse Resp BP Pulse Ox 12/19/16 23:28 97.4 F L 98 H 17 128/64 99 12/19/16 20:14 97.9 F 87 19 137/90 99 Temperature: Afebrile Blood Pressure: Normal Pulse: Regular Respiratory Rate: Normal Appearance: Positive for: Well-Appearing, Non-Toxic, Comfortable Pain Distress: None Mental Status: Positive for: Alert and Oriented X 3 - Systems Exam Head: Present: Normocephalic, Tenderness, Contusion, Swelling, Other (+ttp and swelling noted on the rt. lateral parietal/occipital region with no laceration or abrasion. ). No: Ecchymosis, Abrasion, Laceration Pupils: Present: PERRL Extroacular Muscles: Present: EOMI Conjunctiva: Present: Normal Ears: Present: NORMAL TM, Normal Canal. No: Erythema Mouth: Present: Moist Mucous Membranes Nose (External): Present: Atraumatic. No: Abrasion, Contusion, Laceration Nose (Internal): Present: Normal Inspection, No Active Bleeding. No: Rhinorrhea , Septal Hematoma, Epistaxis Neck: Present: Normal Range of Motion, Trachea Midline. No: MIDLINE TENDERNESS , Paraspinal Tenderness Respiratory/Chest: Present: Clear to Auscultation, Good Air Exchange. No: Respiratory Distress, Accessory Muscle Use Cardiovascular: Present: Regular Rate and Rhythm, Normal S1, S2. No: Murmurs Abdomen: Present: Normal Bowel Sounds. No: Tenderness, Distention, Peritoneal Signs, Rebound, Guarding Back: Present: Normal Inspection Upper Extremity: Present: Normal Inspection, Normal ROM, NORMAL PULSES. No: Cyanosis, Edema Lower Extremity: Present: Normal Inspection, Capillary Refill < 2 s. No: Edema Neurological: Present: GCS=15, Speech Normal, Motor Func Grossly Intact, Gait Normal, Memory Normal Skin: Present: Warm, Dry, Normal Color, Other (lt. sided facial region visible 5 sutures with the wound completely healed on the lt. lateral nasal region. ). No: Rashes Psychiatric: Present: Alert, Oriented x 3, Normal Insight, Normal Concentration Medical Decision Making ED Course and Treatment: 12/19/16 20:25 -labs -CT head r/o bleed -IV banana bag -Pt. insisted the ER staff on the sutures removal from the face as he is pulling on it. pt. stated that if the ER doesn't remove it, he will pull it. Sutures removed as requested by patient. 12/19/16 21:52 - arrived. -Labs are non-significant except Hgb 9.3 from 8.5, K+ 3.5, ETOH 264. Potassium chloride 20meq po ordered. -CT Head is limited due to the motion movement, suggest to repeat the CT Head. I discussed with the patient and which they agreed to be repeated. 12/19/16 23:03 -Sterile strips applied. -Pt. is agitated in the ER, cursing and yelling, threatening to attack me and the is on the bed side. stated that the patient has mood swings at home, suddenly friendly and suddenly agitated, cursing at me why the stitches are removed (I explained to him that was his request earlier), questioning the having affair while she went to get the soda. -UA/UDS ordered -PES request for evaluation as the is concerning he has psychiatric issue. 12/19/16 23:50 -CT Head show no acute findings. -Pt. is medically clear and stable for the psychiatric consultation, PES paged. Pt. is calmed now. 12/20/16 00:35 -UA show no UTI -UDS show +cocaine. 12/20/16 01:55 -PES initially screen the patient but the patient is still under the sedation effect, will reassess and pending for the PES dispo. -Case discussed and sign out to Dr. Quiroz, he will follow up the case for the patient. - Lab Interpretations Lab Results: 12/19/16 20:45 12/19/16 20:45 Lab Results 12/19/16 23:05: Urine Opiates Screen Negative, Urine Methadone Screen Negative, Ur Barbiturates Screen Negative, Ur Phencyclidine Scrn Negative, Ur Amphetamines Screen Negative, U Benzodiazepines Scrn Negative, U Oth Cocaine Metabols Positive H, U Cannabinoids Screen Negative 12/19/16 23:05: Urine Color Yellow, Urine Appearance Clear, Urine pH 6.0, Ur Specific [place] <= 1.005, Urine Protein Negative, Urine Glucose (UA) Negative, Urine Ketones Negative, Urine Blood Negative, Urine Nitrate Negative, Urine Bilirubin Negative, Urine Urobilinogen 0.2, Ur Leukocyte Esterase Negative 12/19/16 20:45: Alcohol, Quantitative 264 H 12/19/16 20:45: Sodium 135, Potassium 3.5 L, Chloride 101, Carbon Dioxide 19 L, Anion Gap 19, BUN 15, Creatinine 1.0, Est GFR ( Amer) > 60, Est GFR (Non- Af Amer) > 60, Random Glucose 98, Calcium 8.6, Magnesium 2.0, Total Bilirubin 0.8, AST 47, ALT 33, Alkaline Phosphatase 41, Total Protein 7.5, Albumin 4.4, Globulin 3.1, Albumin/Globulin Ratio 1.4 12/19/16 20:45: WBC 7.6, RBC 4.16, Hgb 9.3 L, Hct 30.1 L, MCV 72.4 L, MCH 22.4 L , MCHC 30.9 L, RDW 21.6 H, Plt Count 286, MPV 8.3, Gran % 62.2, Lymph % (Auto) 28.0, [place] % (Auto) 6.3 H, Eos % (Auto) 3.0, Baso % (Auto) 0.5, Gran # 4.73, Lymph # 2.1, [place] # 0.5, Eos # 0.2, Baso # 0.04 I have reviewed the lab results: Yes Interpretation: Abnormal lab values (Hgb 9.3 from 8.5, K+ 3.5, ETOH 264, + Cocaine) - RAD Interpretation Radiology Orders: 12/19/16 20:28 HEAD W/O CONTRAST [CT] Stat 12/19/16 22:05 HEAD W/O CONTRAST [CT] Stat FINDINGS: Brain: Due to the significant limitations of motion artifact, intracranial hemorrhage cannot be excluded. Evaluation of the maldonado-white differentiation is suboptimal due to motion artifact. Midline shift: There is no midline shift. Ventricles: No ventriculomegaly. Bones/joints: There is a lamina papyracea defect of the medial orbital wall on the left side, compatible with post traumatic change. This is stable. The calvarium demonstrates no evidence for a depressed fracture. Soft tissues: There is soft tissue swelling/hematoma of the right posterior superior scalp. Sinuses: No acute sinusitis. Mastoid air cells: No mastoid effusion. IMPRESSION: 1. There is soft tissue swelling/hematoma of the right posterior superior scalp. 2. Due to the significant limitations of motion artifact, intracranial hemorrhage cannot be excluded. A repeat head CT is recommended. 3. Additional CT findings described above. Thank you for allowing us to participate in the care of your patient. Dictated and Authenticated by: Heron Villatoro MD 12/19/2016 9:47 PM Eastern Time ([place] & [place]) FINDINGS: Brain: There is mild artifact within the right frontal lobe. The white-maldonado differentiation is preserved demonstrating no acute territorial type infarct. No definitive acute intracranial hemorrhage is seen. No edema. Midline shift: There is no midline shift. Ventricles: No ventriculomegaly. Bones/joints: There is a chronic lamina papyracea defect of the medial orbital wall on the left side, compatible with post traumatic change. The calvarium demonstrates no evidence for a depressed fracture. Soft tissues: There is soft tissue swelling/hematoma of the right posterior superior scalp. Sinuses: No acute sinusitis. Mastoid air cells: No mastoid effusion. IMPRESSION: 1. There is soft tissue swelling/hematoma of the right posterior superior scalp. DEWAYNE TABOR | Final Radiology Report CONFIDENTIALITY STATEMENT This report is intended only for use by the referring physician, and only in accordance with law. If you received this in error, call [phone]. Page 2 of 2 2. No definitive acute intracranial abnormality. 3. Incidental/non-acute findings are described above. Thank you for allowing us to participate in the care of your patient. Dictated and Authenticated by: Heron Villatoro MD 12/19/2016 11:54 PM Eastern Time ([place] & [place]) Sandwich Peddler: Radiologist - Medication Orders Current Medication Orders: Discontinued Medications Multivitamins/Vitamin C 10 ml/Thiamine HCl 100 mg/ Folic Acid 1 mg/ Sodium Chloride 1,011.2 mls @ 1,000 mls/hr IV .Q1H1M ONE Stop: 12/19/16 21:23 Last Admin: 12/19/16 20:56 Dose: 1,000 mls/hr Lorazepam (Ativan) 2 mg IM ONCE ONE PRN Reason: Protocol Stop: 12/19/16 23:04 Last Admin: 12/19/16 23:23 Dose: Lorazepam (Ativan) 2 mg IVP ONCE ONE PRN Reason: Protocol Stop: 12/19/16 23:22 Last Admin: 12/19/16 23:20 Dose: 2 mg Potassium Chloride (K-Dur 20 Meq Er Tab) 20 meq PO STAT STA Stop: 12/19/16 21:52 Last Admin: 12/19/16 22:04 Dose: 20 meq - PA / GIN OPERATOR / Resident Statement MD/DO has reviewed & agrees with the documentation as recorded. Disposition/Present on Arrival - Present on Arrival Any Indicators Present on Arrival: No History of DVT/PE: Yes History of Uncontrolled Diabetes: No Urinary Catheter: No History of Decub. Ulcer: No History Surgical Site Infection Following: None - Disposition Have Diagnosis and Disposition been Completed?: Yes Diagnosis: Alcohol intoxication, Head injury, Hematoma of scalp, Agitation, Drug abuse Disposition Time: 01:59 Patient Problems: Current Active Problems Problem Status Onset Alcohol intoxication Acute Head injury Acute Hematoma of scalp Acute Agitation Acute Drug abuse Acute"
[2016-12-19 21:02] LABS: ADD MANUAL DIFF? NO
[2016-12-19 21:08] LABS: BASO # 0.04 K/mm3 (0.0-2.0); BASO % 0.5 % (0.0-3.0); EOS # 0.2 (0.0-0.7); GRAN # 4.73 (1.4-6.5); GRAN % 62.2 % (50.0-68.0); HEMATOCRIT 30.1 % (42.0-52.0); LYMPH # 2.1 (1.2-3.4); MEAN CELL VOLUME 72.4 fL (80.0-105.0); MEAN CORPUSCULAR HEMOGLOBIN 22.4 pg (25.0-35.0); MEAN CORPUSCULAR HGB CONC 30.9 g/dl (31.0-37.0); MEAN PLATELET VOLUME 8.3 fl (7.0-11.0); MONO # 0.5 (0.1-0.6); MONO % 6.3 % (1.0-6.0); PLATELET COUNT 286 10^3/uL (120.0-450.0); RED CELL DISTRIBUTION WIDTH 21.6 % (11.5-14.5); WHITE BLOOD COUNT 7.6 10^3/ul (4.5-11.0)
[2016-12-19 21:16] LABS: ALB/GLOB RATIO 1.4 (1.1-1.8); ALKALINE PHOSPHATASE 41 U/L (38-133); ALT/SGPT 33 U/L (7-56); AST/SGOT 47 U/L (15-59); BILIRUBIN,TOTAL 0.8 mg/dL (0.2-1.3); BLOOD UREA NITROGEN 15 mg/dL (7-21); CALCIUM 8.6 mg/dL (8.4-10.5); CARBON DIOXIDE 19 mmol/L (21-33); CHLORIDE 101 mmol/L (98-107); GFR AFRICAN-AMERICAN > 60; GLUCOSE,RANDOM 98 mg/dL (70-110); POTASSIUM 3.5 mmol/L (3.6-5.0); SODIUM 135 mmol/L (132-148); TOTAL PROTEIN 7.5 g/dL (5.8-8.3)
--- NOTE | 2016-12-19 21:47 | CT ---
EXAM: CT Head Without Intravenous Contrast CLINICAL HISTORY: The patient age is 46 years old and is male; Injury or trauma; Fall; Initial encounter; Blunt trauma (contusions or hematomas); Consciousness not specified; Additional info: ETOH, drunk, rt. Posterior occipital scalp hematom Facility exam id and description: Ct heads head w/o contrast TECHNIQUE: Axial computed tomography images of the head/brain without intravenous contrast. This CT exam was performed using one or more of the following dose reduction techniques: automated exposure control, adjustment of the mA and/or kV according to patient size, and/or use of iterative reconstruction technique. EXAM DATE/TIME: 12/19/2016 8:28 PM COMPARISON: CT - HEAD W/O CONTRAST 12/06/2016 2:20:34 AM FINDINGS: Brain: Due to the significant limitations of motion artifact, intracranial hemorrhage cannot be excluded. Evaluation of the maldonado-white differentiation is suboptimal due to motion artifact. Midline shift: There is no midline shift. Ventricles: No ventriculomegaly. Bones/joints: There is a lamina papyracea defect of the medial orbital wall on the left side, compatible with post traumatic change. This is stable. The calvarium demonstrates no evidence for a depressed fracture. Soft tissues: There is soft tissue swelling/hematoma of the right posterior superior scalp. Sinuses: No acute sinusitis. Mastoid air cells: No mastoid effusion. IMPRESSION: 1. There is soft tissue swelling/hematoma of the right posterior superior scalp. 2. Due to the significant limitations of motion artifact, intracranial hemorrhage cannot be excluded. A repeat head CT is recommended. 3. Additional CT findings described above.
[2016-12-19] MEDS ORDERED: Potassium Chloride 20 mEq ER Tab PO STA (21:51)
[2016-12-19 23:32] LABS: URINE BILIRUBIN NEGATIVE (NEGATIVE); URINE BLOOD NEGATIVE (NEGATIVE); URINE GLUCOSE (UA) NEGATIVE (NEGATIVE); URINE KETONE NEGATIVE (NEGATIVE); URINE LEUKOCYTE ESTERASE NEGATIVE Leu/uL (NEGATIVE); URINE PROTEIN NEGATIVE mg/dL (<30 mg/dL); URINE UROBILINOGEN 0.2 E.U./dL (<1 E.U./dL)
[2016-12-19 23:46] LABS: URINE APPEARANCE CLEAR (CLEAR); URINE COLOR YELLOW (YELLOW)
--- NOTE | 2016-12-19 23:55 | CT ---
EXAM: CT Head Without Intravenous Contrast CLINICAL HISTORY: The patient age is 46 years old and is male; Injury or trauma; Fall; Initial encounter; Concussion / head injury; Additional info: ETOH, drunk, head injury, limited study previous. Facility exam id and description: Ct heads head w/o contrast TECHNIQUE: Axial computed tomography images of the head/brain without intravenous contrast. This CT exam was performed using one or more of the following dose reduction techniques: automated exposure control, adjustment of the mA and/or kV according to patient size, and/or use of iterative reconstruction technique. EXAM DATE/TIME: 12/19/2016 10:05 PM COMPARISON: CT - HEAD W/O CONTRAST 12/19/2016 9:10:35 PM FINDINGS: Brain: There is mild artifact within the right frontal lobe. The white-maldonado differentiation is preserved demonstrating no acute territorial type infarct. No definitive acute intracranial hemorrhage is seen. No edema. Midline shift: There is no midline shift. Ventricles: No ventriculomegaly. Bones/joints: There is a chronic lamina papyracea defect of the medial orbital wall on the left side, compatible with post traumatic change. The calvarium demonstrates no evidence for a depressed fracture. Soft tissues: There is soft tissue swelling/hematoma of the right posterior superior scalp. Sinuses: No acute sinusitis. Mastoid air cells: No mastoid effusion. IMPRESSION: 1. There is soft tissue swelling/hematoma of the right posterior superior scalp. 2. No definitive acute intracranial abnormality. 3. Incidental/non-acute findings are described above.
--- NOTE | 2016-12-20 07:17 | ED PDOC ---
Physical Exam Vital Signs Temp Pulse Resp BP Pulse Ox 12/20/16 09:27 98 F 94 H 16 129/85 98 12/20/16 06:49 97.7 F 84 17 113/63 97 12/20/16 03:24 88 17 132/74 96 12/19/16 23:28 97.4 F L 98 H 17 128/64 99 12/19/16 20:14 97.9 F 87 19 137/90 99 Medical Decision Making ED Course and Treatment: 12/20/16 07:00 Patient signed out to me by Dr. Quiroz pending PES evaluation and disposition. 12/20/16 10:20 Patient cleared by PES for discharge. Discussed with Dr. Lam regarding facial sutures, and states patient can follow up with him at 07:30 tomorrow in his office. Patient is alert and oriented X 3, clinically sober, ambulatory with steady gait. - Lab Interpretations Lab Results: 12/19/16 20:45 12/19/16 20:45 Lab Results 12/19/16 23:05: Urine Opiates Screen Negative, Urine Methadone Screen Negative, Ur Barbiturates Screen Negative, Ur Phencyclidine Scrn Negative, Ur Amphetamines Screen Negative, U Benzodiazepines Scrn Negative, U Oth Cocaine Metabols Positive H, U Cannabinoids Screen Negative 12/19/16 23:05: Urine Color Yellow, Urine Appearance Clear, Urine pH 6.0, Ur Specific [place] <= 1.005, Urine Protein Negative, Urine Glucose (UA) Negative, Urine Ketones Negative, Urine Blood Negative, Urine Nitrate Negative, Urine Bilirubin Negative, Urine Urobilinogen 0.2, Ur Leukocyte Esterase Negative 12/19/16 20:45: Alcohol, Quantitative 264 H 12/19/16 20:45: Sodium 135, Potassium 3.5 L, Chloride 101, Carbon Dioxide 19 L, Anion Gap 19, BUN 15, Creatinine 1.0, Est GFR ( Amer) > 60, Est GFR (Non- Af Amer) > 60, Random Glucose 98, Calcium 8.6, Magnesium 2.0, Total Bilirubin 0.8, AST 47, ALT 33, Alkaline Phosphatase 41, Total Protein 7.5, Albumin 4.4, Globulin 3.1, Albumin/Globulin Ratio 1.4 12/19/16 20:45: WBC 7.6, RBC 4.16, Hgb 9.3 L, Hct 30.1 L, MCV 72.4 L, MCH 22.4 L , MCHC 30.9 L, RDW 21.6 H, Plt Count 286, MPV 8.3, Gran % 62.2, Lymph % (Auto) 28.0, [place] % (Auto) 6.3 H, Eos % (Auto) 3.0, Baso % (Auto) 0.5, Gran # 4.73, Lymph # 2.1, [place] # 0.5, Eos # 0.2, Baso # 0.04 - RAD Interpretation Radiology Orders: 12/19/16 20:28 HEAD W/O CONTRAST [CT] Stat 12/19/16 22:05 HEAD W/O CONTRAST [CT] Stat - Medication Orders Current Medication Orders: Discontinued Medications Multivitamins/Vitamin C 10 ml/Thiamine HCl 100 mg/ Folic Acid 1 mg/ Sodium Chloride 1,011.2 mls @ 1,000 mls/hr IV .Q1H1M ONE Stop: 12/19/16 21:23 Last Admin: 12/19/16 20:56 Dose: 1,000 mls/hr Lorazepam (Ativan) 2 mg IM ONCE ONE PRN Reason: Protocol Stop: 12/19/16 23:04 Last Admin: 12/19/16 23:23 Dose: Lorazepam (Ativan) 2 mg IVP ONCE ONE PRN Reason: Protocol Stop: 12/19/16 23:22 Last Admin: 12/19/16 23:20 Dose: 2 mg Potassium Chloride (K-Dur 20 Meq Er Tab) 20 meq PO STAT STA Stop: 12/19/16 21:52 Last Admin: 12/19/16 22:04 Dose: 20 meq - Scribe Statement The provider has reviewed the documentation as recorded by the Radha Haynes Provider Scribe Attestation: All medical record entries made by the Radha were at my direction and personally dictated by me. I have reviewed the chart and agree that the record accurately reflects my personal performance of the history, physical exam, medical decision making, and the department course for this patient. I have also personally directed, reviewed, and agree with the discharge instructions and disposition. Disposition/Present on Arrival - Present on Arrival Any Indicators Present on Arrival: No History of DVT/PE: Yes History of Uncontrolled Diabetes: No Urinary Catheter: No History of Decub. Ulcer: No History Surgical Site Infection Following: None - Disposition Have Diagnosis and Disposition been Completed?: Yes Diagnosis: Alcohol intoxication, Head injury, Hematoma of scalp, Agitation, Drug abuse Disposition: HOME/ ROUTINE Disposition Time: 10:20 Patient Problems: Current Active Problems Problem Status Onset Alcohol intoxication Acute Head injury Acute Hematoma of scalp Acute Agitation Acute Drug abuse Acute Condition: STABLE Additional Instructions: Please follow up with your doctors including Dr Lam tomorrow at 730am at his office. Return to the ER for any worsening symptoms or for any other concerns. Referrals: Bert Lam MD [Staff Provider] - Follow up with primary
[2016-12-20 09:28] VITALS: BP 129/85; PULSE 94; RESP 16; TEMP 98; O2SAT 98
== END 2016-12-20 10:28 | disposition home or self-care (01) ==
LOC: ED 20:00
DX: S00.03XA Contusion of scalp, initial encounter (principal); W19.XXXA Unspecified fall, initial encounter; Y92.9 Unspecified place or not applicable; R45.1 Restlessness and agitation; F19.10 Other psychoactive substance abuse, uncomplicated; F10.129 Alcohol abuse with intoxication, unspecified; Y90.8 Blood alcohol level of 240 mg/100 ml or more
CPT/HCPCS: 70450; 80053; 80320; 80324; 80345; 80346; 80349; 80353; 80358; 80361; 81003; 83735; 83992; 85025; 90791; 96365; 96375; 99284; J2060; J3411; J7040

== ENCOUNTER 2017-11-13 00:20 | Observation (INO) | payer MEDICAID ==
--- NOTE | 2017-11-13 01:21 | ED PDOC ---
Arrival/HPI - General Chief Complaint: Lower Extremity Problem/Injury Time Seen by Provider: 11/13/17 01:05 Historian: Patient - History of Present Illness Narrative History of Present Illness (Text): 11/13/17 01:20 Dave Fall is a 47 year old male, whose past medical history includes hypertension, DVT, PE, s/p IVC filter, anemia, GERD, basal cell cancer , hiatal hernia, cocaine abuse, and anemia, who presents to the Emergency department accompanied by spouse complaining of chest pain with associated shortness of breath. Patient states he has also been experiencing bilateral lower extremity swelling with intermittent cramping tonight, notes he was recently taken off his blood thinners a few months prior. Patient also notes mid /upper abdominal pain with vomiting for the past few days. Patient denies any fever, chills, diarrhea, urinary symptoms, back pain, neck pain, headache, dizziness, or any other complaints. Symptom Onset: Gradual Symptom Course: Unchanged Activities at Onset: Light Context: Home Past Medical History - Provider Review Nursing Documentation Reviewed: Yes - Infectious Disease Hx of Infectious Diseases: None - Tetanus Immunization Tetanus Immunization: Unknown - Cardiac Hx Cardiac Disorders: Yes Hx Hypertension: Yes Hx Peripheral Vascular Disease: Yes - Pulmonary Hx Bronchitis: Yes Hx Pulmonary Embolism: Yes - Neurological Hx Neurological Disorder: Yes (SYNCOPE 03-25-16) - HEENT Hx HEENT Disorder: No - Renal Hx Renal Disorder: No - Endocrine/Metabolic Hx Endocrine Disorders: No - Hematological/Oncological Hx Blood Disorders: Yes Hx Anemia: Yes (blood/iron transfusions) 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) - Integumentary Hx Dermatological Disorder: Yes (TATTOOS) Hx Melanoma: Yes Other/Comment: HAS SUTURES L SIDE OF FACE - Musculoskeletal/Rheumatological Hx Musculoskeletal Disorders: Yes Hx Degenerative Joint Disease: Yes Hx Falls: Yes Other/Comment: CERVICAL AND LUMBAR RADICULOPATHY - Gastrointestinal Hx Gastrointestinal Disorders: Yes Hx Diverticulitis: Yes Hx Gastroesophageal Reflux: Yes Other/Comment: GASTRITIS, HIATAL HERNIA - Genitourinary/Gynecological Hx Genitourinary Disorders: No - Psychiatric Hx Psychophysiologic Disorder: Yes (cocaine use) Hx Depression: No Hx Emotional Abuse: No Hx Physical Abuse: No Hx Substance Use: Yes (ADMITS TO CURRENT USE OF COCAINE) - Surgical History Other/Comment: IVC FILTER stent left groin 2016 - Anesthesia Hx Anesthesia: No - Suicidal Assessment Feels Threatened In Home Enviroment: No Family/Social History - Physician Review Nursing Documentation Reviewed: Yes Family/Social History: Unknown Family HX Smoking Status: Never Smoked Hx Alcohol Use: Yes (socially/about 2-3x/wk) Hx Substance Use: Yes (ADMITS TO CURRENT USE OF COCAINE) Hx Substance Use Treatment: No Allergies/Home Meds Allergies/Adverse Reactions: Allergies iron sucrose complex [From Venofer] Allergy (Severe, Verified 11/13/17 01:08) RASH, ITCHING Home Medications: Home Meds Medication Instructions Recorded Confirmed No Known Home Med 12/19/16 11/13/17 Review of Systems - Physician Review All systems were reviewed & negative as marked: Yes - Review of Systems Constitutional: Normal. absent: Fevers Eyes: Normal ENT: Normal Respiratory: SOB Cardiovascular: Chest Pain Gastrointestinal: Abdominal Pain, Vomiting Genitourinary Male: Normal. absent: Dysuria, Frequency, Hematuria, Urinary Output Changes Musculoskeletal: Other (+lower leg swelling, +bilateral lower extremity cramping ) Skin: Normal. absent: Rash Neurological: Normal. absent: Headache, Dizziness Endocrine: Normal Hemo/Lymphatic: Normal Psychiatric: Normal Physical Exam Vital Signs Reviewed: Yes Vital Signs Temp Pulse Resp BP Pulse Ox 11/13/17 01:00 98.4 F 96 H 18 128/83 100 Temperature: Afebrile Blood Pressure: Normal Pulse: Regular Respiratory Rate: Normal Appearance: Positive for: Well-Appearing, Non-Toxic, Comfortable Pain Distress: None Mental Status: Positive for: Alert and Oriented X 3 - Systems Exam Head: Present: Atraumatic, Normocephalic Pupils: Present: PERRL Extroacular Muscles: Present: EOMI Conjunctiva: Present: Normal Mouth: Present: Moist Mucous Membranes Neck: Present: Normal Range of Motion Respiratory/Chest: Present: Clear to Auscultation, Good Air Exchange. No: Respiratory Distress, Accessory Muscle Use Cardiovascular: Present: Regular Rate and Rhythm, Normal S1, S2. No: Murmurs Abdomen: Present: Tenderness (Mid/upper tenderness). No: Distention, Peritoneal Signs Back: Present: Normal Inspection Upper Extremity: Present: Normal Inspection. No: Cyanosis, Edema Lower Extremity: Present: Normal Inspection. No: Edema Neurological: Present: GCS=15, CN II-XII Intact, Speech Normal Skin: Present: Warm, Dry, Normal Color. No: Rashes Psychiatric: Present: Alert, Oriented x 3, Normal Insight, Normal Concentration Medical Decision Making ED Course and Treatment: 11/13/17 01:20 Impression: 47 year old male complaining of bilateral lower extremity swelling/cramping, chest pain, shortness of breath, cough, abdominal pain, and vomiting. Plan: -- CT Abdomen and Pelvis with IV contrast -- CTA Chest -- US Duplex Lower Extremities -- EKG -- Chest X-Ray -- Labs, cardiac enzymes, lipase -- Reassess and disposition Prior Visits: Notes and results from previous visits were reviewed. On 12/19/2016, pt was seen in the emergency department s/p head injury. Pt was d/c home. Progress Notes: 11/13/17 02:27 Reviewed EKG, NSR at [address]-segment elevations or depressions, no T-wave inversions, normal intervals. 11/13/17 03:11 Chest X-Ray reviewed, shows no acute processes. 11/13/17 03:28 US Duplex Lower Extremities negative for DVT. 11/13/17 04:30 CTA Chest shows: Pulmonary arteries: There is no evidence of filling defects within the main and proximal pulmonary arterial circulation to suggest pulmonary embolism. The distal segmental branches are limited by suboptimal enhancement and motion. Aorta: No acute findings. No thoracic aortic aneurysm. Lungs: Unremarkable. No mass. No consolidation. Pleural space: Unremarkable. No significant effusion. No pneumothorax. Heart: Unremarkable. No cardiomegaly. No significant pericardial effusion. No evidence of RV dysfunction. Bones/joints: No acute fracture. No dislocation. Soft tissues: Unremarkable. Lymph nodes: Unremarkable. No enlarged lymph nodes. Stomach and bowel: Large hiatal hernia with intrathoracic stomach. IMPRESSION: No central pulmonary embolism. The distal pulmonary arteries are limited by suboptimal enhancement and motion. Large hiatal hernia. CT Abdomen and Pelvis shows: Lung bases: Unremarkable. No mass. No consolidation. ABDOMEN: Liver: Unremarkable. No mass. Gallbladder and bile ducts: The gallbladder is contracted but otherwise normal. No calcified stones. No ductal dilation. Pancreas: Unremarkable. No mass. No ductal dilation. Spleen: There is mild nonspecific splenomegaly measuring 14.5 cm. Adrenals: Unremarkable. No mass. Kidneys and ureters: Unremarkable. No solid mass. No hydronephrosis. Stomach and bowel: Large hiatal hernia with intrathoracic stomach. Moderate diverticulosis is present in the sigmoid and descending colon. No mucosal thickening. There is no evidence of diverticulitis. PELVIS: Appendix: No findings to suggest acute appendicitis. Normal appendix. Bladder: Unremarkable. No mass. Reproductive: Unremarkable as visualized. ABDOMEN and PELVIS: Intraperitoneal space: Unremarkable. No free air. No significant fluid collection. Bones/joints: No acute fracture. No dislocation. Soft tissues: Unremarkable. Vasculature: An inferior vena cava filter lies in appropriate position. No abdominal aortic aneurysm. Lymph nodes: Unremarkable. No enlarged lymph nodes. IMPRESSION: Large hiatal hernia with intrathoracic stomach. Diverticulosis without acute diverticulitis. Mild nonspecific splenomegaly. 11/13/17 05:35 Case discussed with medical records supervisor contact printer dry film, who is aware and agrees with plan. 11/13/17 05:[address] Turner, who is aware and agrees with plan. Accepts pt in to hospitalist service. Pt will go to Telemetry observation for chest pain and abdominal pain. - Lab Interpretations Lab Results: 11/13/17 01:45 11/13/17 01:45 Lab Results 11/13/17 02:15: PT 11.2, INR 0.98, APTT 23.9 L 11/13/17 01:45: WBC 6.6, RBC 3.53, Hgb 7.7 L, Hct 25.1 L, MCV 71.1 L, MCH 21.8 L , MCHC 30.7 L, RDW 17.5 H, Plt Count 301, MPV 8.4 11/13/17 01:45: Sodium 145, Potassium 3.7, Chloride 108 H, Carbon Dioxide 22, Anion Gap 19, BUN 18, Creatinine 1.4, Est GFR ( Amer) > 60, Est GFR (Non- Af Amer) 55, Random Glucose 123 H, Calcium 8.7, Total Bilirubin 0.2, AST 50, ALT 44, Alkaline Phosphatase 44, Lactate Dehydrogenase 609, Total Creatine Kinase 785 H, CK-MB (CK-2) 3.4, CK-MB (CK-2) % Cancelled, Troponin I < 0.01, Total Protein 6.8, Albumin 4.0, Globulin 2.8, Albumin/Globulin Ratio 1.4, Lipase 202 I have reviewed the lab results: Yes - RAD Interpretation Radiology Orders: 11/13/17 01:22 ANGIO CHEST PE PROTOCOL [CT] Stat 11/13/17 01:23 CHEST PORTABLE [RAD] Stat 11/13/17 01:24 ABD & PELVIS IV CONTRAST ONLY [CT] Stat DUPLEX LOWER EXTRM VEIN BILAT [US] Stat [facility] Worker: ED Physician, Radiologist - EKG Interpretation Interpreted by ED Physician: Yes Type: 12 lead EKG - Scribe Statement The provider has reviewed the documentation as recorded by the Darleneibsteve Sinclair Provider Scribe Attestation: All medical record entries made by the Scribe were at my direction and personally dictated by me. I have reviewed the chart and agree that the record accurately reflects my personal performance of the history, physical exam, medical decision making, and the department course for this patient. I have also personally directed, reviewed, and agree with the discharge instructions and disposition. Disposition/Present on Arrival - Present on Arrival Any Indicators Present on Arrival: No History of DVT/PE: Yes History of Uncontrolled Diabetes: No Urinary Catheter: No History of Decub. Ulcer: No History Surgical Site Infection Following: None - Disposition Have Diagnosis and Disposition been Completed?: Yes Diagnosis: Chest pain, Abdominal pain, Intractable vomiting Disposition: HOSPITALIZED Disposition Time: 05:40 Patient Plan: Observation Patient Problems: Current Active Problems Problem Status Onset Abdominal pain Acute Chest pain Acute Intractable vomiting Acute Condition: STABLE Discharge Instructions (ExitCare): Chest Pain (ED) Forms: [facility] (Faroese)
[2017-11-13 02:15] LABS: HEMOGLOBIN 7.7 g/dL (14.0-18.0); MEAN CELL VOLUME 71.1 fl (80.0-105.0); MEAN CORPUSCULAR HEMOGLOBIN 21.8 pg (25.0-35.0); MEAN CORPUSCULAR HGB CONC 30.7 g/dl (31.0-37.0); MEAN PLATELET VOLUME 8.4 fl (7.0-11.0); RBC 3.53 10^6/uL (3.5-6.1); RED CELL DISTRIBUTION WIDTH 17.5 % (11.5-14.5); WHITE BLOOD COUNT 6.6 10^3/ul (4.5-11.0)
[2017-11-13 02:19] LABS: ALB/GLOB RATIO 1.4 (1.1-1.8); ALT/SGPT 44 U/L (7-56); AST/SGOT 50 U/L (17-59); BLOOD UREA NITROGEN 18 mg/dL (7-21); CALCIUM 8.7 mg/dL (8.4-10.5); GFR AFRICAN-AMERICAN > 60; GFR NON-AFRICAN AMERICAN 55; LIPASE 202 U/L (23-300)
[2017-11-13 02:30] LABS: TROPONIN I < 0.01 ng/mL
[2017-11-13 02:35] LABS: CK-MB 3.4 ng/mL (0.0-3.6)
[2017-11-13 02:40] LABS: INR 0.98 (0.93-1.08); PARTIAL THROMBOPLASTIN TIME 23.9 Seconds (25.1-36.5); PROTHROMBIN TIME 11.2 SECONDS (9.4-12.5)
--- NOTE | 2017-11-13 04:20 | CT ---
EXAM: CT Angiography Chest With Intravenous Contrast CLINICAL HISTORY: 47 years old, male; Signs and symptoms; Shortness of breath; Prior surgery; Surgery date: 6+ months; Surgery type: Stent; Additional info: SOB TECHNIQUE: Axial computed tomographic angiography images of the chest with intravenous contrast using pulmonary embolism protocol. All CT scans at this facility use one or more dose reduction techniques, viz.: automated exposure control; ma/kV adjustment per patient size (including targeted exams where dose is matched to indication; i.e. head); or iterative reconstruction technique. MIP reconstructed images were created and reviewed. Coronal and sagittal reformatted images were created and reviewed. CONTRAST: 96 mL of omni 350 administered intravenously. COMPARISON: CT - ANGIO CHEST PE PROTOCOL 2016-10-16 19:25 FINDINGS: Pulmonary arteries: There is no evidence of filling defects within the main and proximal pulmonary arterial circulation to suggest pulmonary embolism. The distal segmental branches are limited by suboptimal enhancement and motion. Aorta: No acute findings. No thoracic aortic aneurysm. Lungs: Unremarkable. No mass. No consolidation. Pleural space: Unremarkable. No significant effusion. No pneumothorax. Heart: Unremarkable. No cardiomegaly. No significant pericardial effusion. No evidence of RV dysfunction. Bones/joints: No acute fracture. No dislocation. Soft tissues: Unremarkable. Lymph nodes: Unremarkable. No enlarged lymph nodes. Stomach and bowel: Large hiatal hernia with intrathoracic stomach. IMPRESSION: No central pulmonary embolism. The distal pulmonary arteries are limited by suboptimal enhancement and motion. Large hiatal hernia.
--- NOTE | 2017-11-13 04:29 | CT ---
EXAM: CT Abdomen and Pelvis With Intravenous Contrast CLINICAL HISTORY: 47 years old, male; Pain; Abdominal pain TECHNIQUE: Axial computed tomography images of the abdomen and pelvis with intravenous contrast. All CT scans at this facility use one or more dose reduction techniques, viz.: automated exposure control; ma/kV adjustment per patient size (including targeted exams where dose is matched to indication; i.e. head); or iterative reconstruction technique. Coronal and sagittal reformatted images were created and reviewed. CONTRAST: 50 mL of OMNI 350 administered intravenously. COMPARISON: CT - ABD PELVIS W/O PO OR IV CONT 2016-05-02 11:49 FINDINGS: Lung bases: Unremarkable. No mass. No consolidation. ABDOMEN: Liver: Unremarkable. No mass. Gallbladder and bile ducts: The gallbladder is contracted but otherwise normal. No calcified stones. No ductal dilation. Pancreas: Unremarkable. No mass. No ductal dilation. Spleen: There is mild nonspecific splenomegaly measuring 14.5 cm. Adrenals: Unremarkable. No mass. Kidneys and ureters: Unremarkable. No solid mass. No hydronephrosis. Stomach and bowel: Large hiatal hernia with intrathoracic stomach. Moderate diverticulosis is present in the sigmoid and descending colon. No mucosal thickening. There is no evidence of diverticulitis. PELVIS: Appendix: No findings to suggest acute appendicitis. Normal appendix. Bladder: Unremarkable. No mass. Reproductive: Unremarkable as visualized. ABDOMEN and PELVIS: Intraperitoneal space: Unremarkable. No free air. No significant fluid collection. Bones/joints: No acute fracture. No dislocation. Soft tissues: Unremarkable. Vasculature: An inferior vena cava filter lies in appropriate position. No abdominal aortic aneurysm. Lymph nodes: Unremarkable. No enlarged lymph nodes. IMPRESSION: Large hiatal hernia with intrathoracic stomach. Diverticulosis without acute diverticulitis. Mild nonspecific splenomegaly.
--- NOTE | 2017-11-13 07:03 | CP.PCM.HP ---
<Myles Granda - Last Filed: 11/13/17 07:33> History of Present Illness - History of Present Illness History of Present Illness: CC: Chest discomfort, Leg Cramping HPI: 47 year old male with past medical history that includes BCC of skin, PE s/ p IVC filter and SC lovenox therapy, hiatal hernia, gastritis, HTN, anemia, syncopal episodes who presents with few day history of shortness of breath and cramping of his lower extremities. Patient indicates that he feels like his blood level's are low. He also complains of cough and daily vomiting episodes. Patient indicates after he eats and often when he lays flat or at incline he has regurgitation/vomiting of non-bilious brown to black vomit at least once a day. He states that his vomiting episodes have increased from once a week. Patient reports being taken off his blood thinners a few months ago. Patient also appreciates mid to left upper abdominal pain he credits to his chronic hiatal hernia. He denies fever, chills, diarrhea, numbness, changes in vision, headache, gait instability. 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 ALL: Iron sucrose complex MEDS: Unable to recall - [facility] in [place] is patient pharmacy Heme/Onc: Karmen PMD: Brigid Roberts Present on Admission - Present on Admission Any Indicators Present on Admission: Yes History of DVT/PE: Yes Review of Systems - Review of Systems All systems: reviewed and no additional remarkable complaints except (as mentioned in HPI) Past Patient History - Infectious Disease Hx of Infectious Diseases: None - Tetanus Immunizations Tetanus Immunization: Unknown - Past Medical History & Family History Past Medical History?: Yes - Past Social History Smoking Status: Never Smoked - CARDIAC Hx Cardiac Disorders: Yes Hx Hypertension: Yes Hx Peripheral Vascular Disease: Yes - PULMONARY Hx Bronchitis: Yes Hx Pulmonary Embolism: Yes - NEUROLOGICAL Hx Neurological Disorder: Yes (SYNCOPE 03-25-16) - HEENT Hx HEENT Problems: No - RENAL Hx Chronic Kidney Disease: No - ENDOCRINE/METABOLIC Hx Endocrine Disorders: No - HEMATOLOGICAL/ONCOLOGICAL Hx Blood Disorders: Yes Hx Anemia: Yes (blood/iron transfusions) 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) - INTEGUMENTARY Hx Dermatological Problems: Yes (TATTOOS) Hx Melanoma: Yes Other/Comment: HAS SUTURES L SIDE OF FACE - MUSCULOSKELETAL/RHEUMATOLOGICAL Hx Musculoskeletal Disorders: Yes Hx Degenerative Joint Disease: Yes Hx Falls: Yes Other/Comment: CERVICAL AND LUMBAR RADICULOPATHY - GASTROINTESTINAL Hx Gastrointestinal Disorders: Yes Hx Diverticulitis: Yes Hx Gastroesophageal Reflux: Yes Other/Comment: GASTRITIS, HIATAL HERNIA - GENITOURINARY/GYNECOLOGICAL Hx Genitourinary Disorders: No - PSYCHIATRIC Hx Psychophysiologic Disorder: Yes (cocaine use) Hx Depression: No Hx Emotional Abuse: No Hx Physical Abuse: No Hx Substance Use: Yes (ADMITS TO CURRENT USE OF COCAINE) - SURGICAL HISTORY Other/Comment: IVC FILTER stent left groin 2016 - ANESTHESIA Hx Anesthesia: No Meds Allergies/Adverse Reactions: Allergies Allergy/AdvReac Type Severity Reaction Status Date / Time iron sucrose complex Allergy Severe RASH, Verified 11/13/17 01:08 [From Venofer] ITCHING Physical Exam - Constitutional Appears: Non-toxic - Head Exam Head Exam: ATRAUMATIC, NORMAL INSPECTION, NORMOCEPHALIC - Eye Exam Eye Exam: EOMI, PERRL - ENT Exam ENT Exam: Mucous Membranes Dry - Neck Exam Neck exam: Positive for: Full Rom - Respiratory Exam Respiratory Exam: Clear to Auscultation Bilateral, NORMAL BREATHING PATTERN. absent: Rhonchi, Wheezes - Cardiovascular Exam Cardiovascular Exam: REGULAR RHYTHM, +S1, +S2. absent: Systolic Murmur - GI/Abdominal Exam GI & Abdominal Exam: Normal Bowel Sounds, Soft, Tenderness (mid epigastric and LUQ). absent: Firm, Guarding - Extremities Exam Extremities exam: Positive for: normal capillary refill, pedal pulses present. Negative for: calf tenderness, pedal edema, tenderness - Back Exam Back exam: absent: CVA tenderness (L), CVA tenderness (R) - Neurological Exam Neurological exam: Alert, CN II-XII Intact, Normal Gait, Oriented x3 - Psychiatric Exam Psychiatric exam: Normal Affect, Normal Mood - Skin Skin Exam: Dry, Warm Additional comments: Left anterior superior chest with small 0.3cm dark blue,black discoloration Results - Vital Signs Recent Vital Signs: Last Vital Signs Temp 98.4 F 11/13/17 01:00 Pulse 74 11/13/17 06:30 Resp 18 11/13/17 06:30 BP 143/81 11/13/17 06:30 Pulse Ox 98 11/13/17 06:30 - Labs Result Diagrams: 11/13/17 01:45 11/13/17 01:45 Labs: Laboratory Results - last 24 hr 11/13/17 11/13/17 11/13/17 01:45 01:45 02:15 WBC 6.6 RBC 3.53 Hgb 7.7 L Hct 25.1 L MCV 71.1 L MCH 21.8 L MCHC 30.7 L RDW 17.5 H Plt Count 301 MPV 8.4 PT 11.2 INR 0.98 APTT 23.9 L Sodium 145 Potassium 3.7 Chloride 108 H Carbon Dioxide 22 Anion Gap 19 BUN 18 Creatinine 1.4 Est GFR ( Amer) > 60 Est GFR (Non-Af Amer) 55 Random Glucose 123 H Calcium 8.7 Total Bilirubin 0.2 AST 50 ALT 44 Alkaline Phosphatase 44 Lactate Dehydrogenase 609 Total Creatine Kinase 785 H CK-MB (CK-2) 3.4 CK-MB (CK-2) % Cancelled Troponin I < 0.01 Total Protein 6.8 Albumin 4.0 Globulin 2.8 Albumin/Globulin Ratio 1.4 Lipase 202 Assessment & Plan - Assessment and Plan (Free Text) Assessment: 47 year old male with past medical history that includes BCC of skin, PE s/p IVC filter and SC lovenox therapy, hiatal hernia, gastritis, HTN, anemia, syncopal episodes who presents with few day history of shortness of breath and cramping of his lower extremities. Plan: Anemia - History of Basal cell carcinoma - multiple EGD in past - multiple transfusions up to 16 over the past 2 years - Heme/Onc consult - Iron, transferrin, Ferritin, TIBC - Consider blood transfusion - Check CBC Hx of Pulmonary Embolism s/p IVC filter - Holding theraputic SC lovenox due to concern for GI bleeding - CTA chest - No central pulmonary embolism. The distal pulmonary arteries are limited by suboptimal enhancement and motion. - Large hiatal hernia. Hiatal Hernia - Abdomen/Pelvis CT: - Large hiatal hernia with intrathoracic stomach. - Diverticulosis without acute diverticulitis. - Mild nonspecific splenomegaly. 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 Hx HTN - stable, continue to monitor DVT ppx: IVC Filter GI ppx: Protonix Case and plan discussed with attending - Date & Time Date: 11/13/17 Time: 07:20 <Ashley Turner - Last Filed: 11/13/17 07:43> Results - Vital Signs Recent Vital Signs: Last Vital Signs Temp 98.4 F 11/13/17 01:00 Pulse 74 11/13/17 06:30 Resp 18 11/13/17 06:30 BP 143/81 11/13/17 06:30 Pulse Ox 98 11/13/17 06:30 - Labs Result Diagrams: 11/13/17 01:45 11/13/17 01:45 Attending/Attestation - Attestation I have personally seen and examined this patient.: Yes I have fully participated in the care of the patient.: Yes I have reviewed all pertinent clinical information: Yes Notes (Text): 11/13/17 07:41 Agree with documentation and orders placed. GI consult requested for hiatus hernia.
[2017-11-13] MEDS ORDERED: Sodium Chloride 0.9% 1,000 ML IV SCH (07:30)
[2017-11-13] MEDS ORDERED: Sodium Chloride 0.9% 1,000 ML IV STA (07:43)
[2017-11-13 08:07] LABS: IRON 20 ug/dL (45-180)
--- NOTE | 2017-11-13 08:08 | RAD ---
HISTORY: Shortness of breath COMPARISON: Comparison made with are CT scan abdomen pelvis CTA chest. FINDINGS: LUNGS: No active pulmonary disease. PLEURA: No significant pleural effusion identified, no pneumothorax apparent. CARDIOVASCULAR: Heart size normal. Large hiatal hernia is present. OSSEOUS STRUCTURES: No significant abnormalities. VISUALIZED UPPER ABDOMEN: Normal. OTHER FINDINGS: None. IMPRESSION: Large hiatal hernia.
[2017-11-13 08:10] LABS: BLOOD UREA NITROGEN 19 mg/dL (7-21); CALCIUM 8.4 mg/dL (8.4-10.5); GFR AFRICAN-AMERICAN > 60; GFR NON-AFRICAN AMERICAN > 60
[2017-11-13 08:17] LABS: % IRON SATURATION 4 % (20-55); TOTAL IRON BINDING CAPACITY 461 ug/dL (261-462)
[2017-11-13 08:18] LABS: TROPONIN I < 0.01 ng/mL
[2017-11-13 08:27] LABS: BASO # 0.03 K/mm3 (0.0-2.0); BASO % 0.6 % (0.0-3.0); EOS # 0.2 (0.0-0.7); EOS % 3.5 % (1.5-5.0); GRAN # 2.42 (1.4-6.5); GRAN % 50.5 % (50.0-68.0); HEMOGLOBIN 7.3 g/dL (14.0-18.0); LYMPH # 1.7 (1.2-3.4); LYMPH % 35.8 % (22.0-35.0); MEAN CELL VOLUME 70.3 fl (80.0-105.0); MEAN CORPUSCULAR HEMOGLOBIN 20.6 pg (25.0-35.0); MEAN CORPUSCULAR HGB CONC 29.3 g/dl (31.0-37.0); MEAN PLATELET VOLUME 8.5 fl (7.0-11.0); MONO # 0.5 (0.1-0.6); MONO % 9.6 % (1.0-6.0); RBC 3.54 10^6/uL (3.5-6.1); RED CELL DISTRIBUTION WIDTH 17.4 % (11.5-14.5); WHITE BLOOD COUNT 4.8 10^3/ul (4.5-11.0)
[2017-11-13] MEDS: Sodium Chloride 0.9% 1,000 ML IV SCH ×2 (09:00→14:25)
--- NOTE | 2017-11-13 09:23 | US ---
HISTORY: Leg pain and swelling. Evaluate for DVT PHYSICIAN(S): Jose Cantrell MD. TECHNIQUE: Duplex sonography and color-flow Doppler with graded compression were used to evaluate the deep venous systems of both lower extremities. FINDINGS: The visualized deep venous systems of both lower extremities are sonographically normal and compressible. Normal wave forms and augmentation are seen. There is no sonographic evidence for deep venous thrombosis in the visualized segments of both lower extremities. IMPRESSION: No sonographic evidence for deep venous thrombosis in the visualized segments of both lower extremities.
--- NOTE | 2017-11-13 09:25 | CP.PCM.CON ---
Past Patient History - Infectious Disease Hx of Infectious Diseases: None - Tetanus Immunizations Tetanus Immunization: Unknown - Past Medical History & Family History Past Medical History?: Yes - Past Social History Smoking Status: Never Smoked - CARDIAC Hx Cardiac Disorders: Yes Hx Hypertension: Yes Hx Peripheral Vascular Disease: Yes - PULMONARY Hx Bronchitis: Yes Hx Pulmonary Embolism: Yes - NEUROLOGICAL Hx Neurological Disorder: Yes (SYNCOPE 03-25-16) - HEENT Hx HEENT Problems: No - RENAL Hx Chronic Kidney Disease: No - ENDOCRINE/METABOLIC Hx Endocrine Disorders: No - HEMATOLOGICAL/ONCOLOGICAL Hx Blood Disorders: Yes Hx Anemia: Yes (blood/iron transfusions) 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) - INTEGUMENTARY Hx Dermatological Problems: Yes (TATTOOS) Hx Melanoma: Yes Other/Comment: HAS SUTURES L SIDE OF FACE - MUSCULOSKELETAL/RHEUMATOLOGICAL Hx Musculoskeletal Disorders: Yes Hx Degenerative Joint Disease: Yes Hx Falls: Yes Other/Comment: CERVICAL AND LUMBAR RADICULOPATHY - GASTROINTESTINAL Hx Gastrointestinal Disorders: Yes Hx Diverticulitis: Yes Hx Gastroesophageal Reflux: Yes Other/Comment: GASTRITIS, HIATAL HERNIA - GENITOURINARY/GYNECOLOGICAL Hx Genitourinary Disorders: No - PSYCHIATRIC Hx Psychophysiologic Disorder: Yes (cocaine use) Hx Depression: No Hx Emotional Abuse: No Hx Physical Abuse: No Hx Substance Use: Yes (ADMITS TO CURRENT USE OF COCAINE) - SURGICAL HISTORY Other/Comment: IVC FILTER stent left groin 2016 - ANESTHESIA Hx Anesthesia: No Meds Allergies/Adverse Reactions: Allergies Allergy/AdvReac Type Severity Reaction Status Date / Time iron sucrose complex Allergy Severe RASH, Verified 11/13/17 01:08 [From Abraham] ITCHING - Medications Medications: Current Medications Folic Acid (Folic Acid) 1 mg PO DAILY [facility] Sodium Chloride (Sodium Chloride 0.9%) 1,000 mls @ 150 mls/hr IV .Q6H40M [facility] Last Admin: 11/13/17 09:00 Dose: 150 mls/hr Pantoprazole Sodium (Protonix Inj) 40 mg IVP Q12 [facility] Thiamine HCl (Vitamin B1 Tab) 100 mg PO DAILY [facility] Results - Vital Signs Recent Vital Signs: Last Vital Signs Temp 98.1 F 11/13/17 09:04 Pulse 72 11/13/17 09:04 Resp 19 11/13/17 09:04 BP 143/88 11/13/17 09:04 Pulse Ox 99 11/13/17 09:04 - Labs Result Diagrams: 11/13/17 08:00 11/13/17 07:45 Labs: Laboratory Results - last 24 hr 11/13/17 11/13/17 11/13/17 07:45 07:45 08:00 WBC 4.8 D RBC 3.54 Hgb 7.3 L Hct 24.9 L MCV 70.3 L MCH 20.6 L MCHC 29.3 L RDW 17.4 H Plt Count 249 MPV 8.5 Gran % 50.5 Lymph % (Auto) 35.8 H [place] % (Auto) 9.6 H Eos % (Auto) 3.5 Baso % (Auto) 0.6 Gran # 2.42 Lymph # (Auto) 1.7 [place] # (Auto) 0.5 Eos # (Auto) 0.2 Baso # (Auto) 0.03 Sodium 144 Potassium 3.7 Chloride 108 H Carbon Dioxide 22 Anion Gap 18 BUN 19 Creatinine 1.1 Est GFR ( Amer) > 60 Est GFR (Non-Af Amer) > 60 Random Glucose 130 H Calcium 8.4 Iron 20 L TIBC 461 % Saturation 4 L Troponin I < 0.01
--- NOTE | 2017-11-13 09:59 | CP.PCM.CON ---
<Sid Mcpherson - Last Filed: 11/13/17 18:27> History of Present Illness - History of Present Illness History of Present Illness: Subjective: CC: Chest discomfort, Abdominal Pain, N/V, Leg Cramping HPI: Patient is a 47 year old male with past medical history of basal cell carcinoma of the skin, PE s/p IVC filter and SC lovenox therapy, hiatal hernia, gastritis , HTN, anemia, syncopal episodes who was admitted for evaluation and treatment of abdominal pain, N/V, chest discomfort, shortness of breath and cramping of his lower extremities. GI was consulted for management of nausea/vomiting/ abdominal pain and abnormalities found on CT of the abdomen including hiatal hernia, diverticulosis without acute diverticulitis. Patient states he has been experiencing localized epigastric pain which is characterized as being sharp in nature and rated a 8/10. Pain began 3 weeks ago with no specific provoking event. Associated with daily bouts of nausea and nonbloody, nonbilious emesis. States that emesis mainly consists of food particles and generally occurs at night time. Admits to constipation with last bowel movement occurring 2 days ago. States bowel movements are nonbloody and not dark in nature. Admits to stopping pantoprazole and sucralfate 3 months ago as per his primary care physician. Does not follow with outpatient GI physician. Also admits to SOB with exertion and bilateral lower extremity cramping while ambulating. Denies fever, chills, SOB at rest, diarrhea. 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 absent: Rhonchi, Wheezes - Cardiovascular Exam Cardiovascular Exam: REGULAR RHYTHM, +S1, +S2. absent: Systolic Murmur - GI/Abdominal Exam GI & Abdominal Exam: Normal Bowel Sounds, Soft, Tenderness (mid epigastric and LUQ). absent: Firm, Guarding, Organomegaly - Extremities Exam Extremities exam: Positive for: normal capillary refill, pedal pulses present. Negative for: calf tenderness, pedal edema, tenderness - Neurological Exam Neurological exam: Alert, Oriented x3 - Psychiatric Exam Psychiatric exam: Normal Affect, Normal Mood - Skin Skin Exam: Dry, Warm Additional comments: Left anterior superior chest with small 0.3cm dark blue,black discoloration Assessment and Plan: Patient is a 47 year old male with past medical history of basal cell carcinoma of the skin, PE s/p IVC filter and SC lovenox therapy, hiatal hernia, gastritis , HTN, anemia, syncopal episodes who was admitted for evaluation and treatment of abdominal pain, N/V, chest discomfort, shortness of breath and cramping of his lower extremities. GI was consulted for management of nausea/vomiting/ abdominal pain and abnormalities found on CT of the abdomen including hiatal hernia, diverticulosis without acute diverticulitis. Upper Endoscopy 03/2016 (Dr. Villanueva) revealed 4 cm large combing hiatus paraesophaglea and sliding, few nonbleeding linear gastric ulcers suggestive of tavon ulcers with no stigmata of bleeding in gastric fundus and gastric body. Colonoscopy from 03/2016 (Dr. Villanueva) revealed diverticulosis in etire examine colon, internal hemorrhoids, one dimnutive polpy in cecum which was not removed as patient was on anticoagulation. Upper Endoscopy from 11/2016 (Dr. Prabhakar) revealed a normal oropharynx, lA grade A esophagitis, multiple linear gastric ulcers with lcean base in the fundus, multiple antral erosions, pyloric channel ulcer mild duodenitis. Abdomen/pelvis CT revealed Large hiatal hernia with intrathoracic stomach, Diverticulosis without acute diverticulitis, Mild nonspecific splenomegal Ultrasound of lower extremities bilaterally revealed no sonographic evidence for deep venous thrombosis in the visualized segments of both lower extremities. CT angio revealed no evidence of central pulmonary embolism, however distal pulmonary arteries were limited by suboptimal enhancement and motion. Abdominal Pain, Nausea/Vomiting Large Hiatal Hernia Hx of Gastritis Hx of BCC of the skin Hx of HTN Hx of Anemia - clear liquid diet - endoscopy and colonoscopy tentative for 11/15/17 - requires cardiology clearance - recommend anesthesia evaluate patient tomorrow - recommend head of bed above 30 degrees - transfuse if Hemoglobin < 7 - c/w IVF - c/w thiamine and folate Thank you for the opportunity in participating in the care of this patient. Patient case to be reviewed with and plan approved by attending physician, Dr. Bro. Past Patient History - Infectious Disease Hx of Infectious Diseases: None - Tetanus Immunizations Tetanus Immunization: Unknown - Past Medical History & Family History Past Medical History?: Yes - Past Social History Smoking Status: Never Smoked - CARDIAC Hx Cardiac Disorders: Yes Hx Hypertension: Yes Hx Peripheral Vascular Disease: Yes - PULMONARY Hx Bronchitis: Yes Hx Pulmonary Embolism: Yes - NEUROLOGICAL Hx Neurological Disorder: Yes (SYNCOPE 03-25-16) - HEENT Hx HEENT Problems: No - RENAL Hx Chronic Kidney Disease: No - ENDOCRINE/METABOLIC Hx Endocrine Disorders: No - HEMATOLOGICAL/ONCOLOGICAL Hx Blood Disorders: Yes Hx Anemia: Yes (blood/iron transfusions) 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) - INTEGUMENTARY Hx Dermatological Problems: Yes (TATTOOS) Hx Melanoma: Yes Other/Comment: HAS SUTURES L SIDE OF FACE - MUSCULOSKELETAL/RHEUMATOLOGICAL Hx Musculoskeletal Disorders: Yes Hx Degenerative Joint Disease: Yes Hx Falls: Yes Other/Comment: CERVICAL AND LUMBAR RADICULOPATHY - GASTROINTESTINAL Hx Gastrointestinal Disorders: Yes Hx Diverticulitis: Yes Hx Gastroesophageal Reflux: Yes Other/Comment: GASTRITIS, HIATAL HERNIA - GENITOURINARY/GYNECOLOGICAL Hx Genitourinary Disorders: No - PSYCHIATRIC Hx Psychophysiologic Disorder: Yes (cocaine use) Hx Depression: No Hx Emotional Abuse: No Hx Physical Abuse: No Hx Substance Use: Yes (ADMITS TO CURRENT USE OF COCAINE) - SURGICAL HISTORY Other/Comment: IVC FILTER stent left groin 2016 - ANESTHESIA Hx Anesthesia: No Meds Allergies/Adverse Reactions: Allergies Allergy/AdvReac Type Severity Reaction Status Date / Time iron sucrose complex Allergy Severe RASH, Verified 11/13/17 11:59 [From Venofer] ITCHING - Medications Medications: Current Medications Folic Acid (Folic Acid) 1 mg PO DAILY [facility] Sodium Chloride (Sodium Chloride 0.9%) 1,000 mls @ 150 mls/hr IV .Q6H40M [facility] Last Admin: 11/13/17 09:00 Dose: 150 mls/hr Pantoprazole Sodium (Protonix Inj) 40 mg IVP Q12 [facility] Thiamine HCl (Vitamin B1 Tab) 100 mg PO DAILY [facility] Results - Vital Signs Recent Vital Signs: Last Vital Signs Temp 98.1 F 11/13/17 09:04 Pulse 72 11/13/17 09:04 Resp 19 11/13/17 09:04 BP 143/88 11/13/17 09:04 Pulse Ox 99 11/13/17 09:04 - Labs Result Diagrams: 11/13/17 08:00 11/13/17 07:45 Labs: Laboratory Results - last 24 hr 11/13/17 11/13/17 11/13/17 07:45 07:45 08:00 WBC 4.8 D RBC 3.54 Hgb 7.3 L Hct 24.9 L MCV 70.3 L MCH 20.6 L MCHC 29.3 L RDW 17.4 H Plt Count 249 MPV 8.5 Gran % 50.5 Lymph % (Auto) 35.8 H [place] % (Auto) 9.6 H Eos % (Auto) 3.5 Baso % (Auto) 0.6 Gran # 2.42 Lymph # (Auto) 1.7 [place] # (Auto) 0.5 Eos # (Auto) 0.2 Baso # (Auto) 0.03 Sodium 144 Potassium 3.7 Chloride 108 H Carbon Dioxide 22 Anion Gap 18 BUN 19 Creatinine 1.1 Est GFR ( Amer) > 60 Est GFR (Non-Af Amer) > 60 Random Glucose 130 H Calcium 8.4 Iron 20 L TIBC 461 % Saturation 4 L Troponin I < 0.01 <Marielena Bro - Last Filed: 11/14/17 08:48> Meds - Medications Medications: Current Medications Bisacodyl (Dulcolax) 10 mg PO ONCE ONE Stop: 11/14/17 18:01 Docusate Sodium (Colace) 100 mg PO TID [facility] Last Admin: 11/13/17 17:21 Dose: Not Given Ferrous Sulfate (Feosol) 324 mg PO TID [facility] Last Admin: 11/13/17 17:21 Dose: Not Given Folic Acid (Folic Acid) 1 mg PO DAILY [facility] Last Admin: 11/13/17 10:38 Dose: Not Given Sodium Chloride (Sodium Chloride 0.9%) 1,000 mls @ 100 mls/hr IV .Q10H [facility] Last Admin: 11/14/17 08:43 Dose: 100 mls/hr Pantoprazole Sodium (Protonix Inj) 40 mg IVP Q12 [facility] Last Admin: 11/13/17 21:37 Dose: 40 mg Polyethylene Glycol/Electrolytes (Golytely) 4,000 ml PO ONCE ONE Stop: 11/14/17 13:01 Thiamine HCl (Vitamin B1 Tab) 100 mg PO DAILY [facility] Last Admin: 11/13/17 10:38 Dose: Not Given Results - Vital Signs Recent Vital Signs: Last Vital Signs Temp 98.4 F 11/14/17 05:37 Pulse 67 11/14/17 05:37 Resp 22 11/14/17 05:37 BP 129/71 11/14/17 05:37 Pulse Ox 98 11/14/17 05:37 - Labs Result Diagrams: 11/14/17 06:00 11/14/17 06:00 Labs: Laboratory Results - last 24 hr 11/13/17 11/13/17 11/13/17 07:45 07:45 12:50 WBC RBC Hgb Hct MCV MCH MCHC RDW Plt Count MPV Gran % Lymph % (Auto) [place] % (Auto) Eos % (Auto) Baso % (Auto) Gran # Lymph # (Auto) [place] # (Auto) Eos # (Auto) Baso # (Auto) Sodium Potassium Chloride Carbon Dioxide Anion Gap BUN Creatinine Est GFR ( Amer) Est GFR (Non-Af Amer) Random Glucose Calcium Transferrin 347.29 Ferritin 5.5 Total Bilirubin AST ALT Alkaline Phosphatase Troponin I Total Protein Albumin Globulin Albumin/Globulin Ratio Folate 9.3 Urine Opiates Screen Urine Methadone Screen Ur Barbiturates Screen Ur Phencyclidine Scrn Ur Amphetamines Screen U Benzodiazepines Scrn U Oth Cocaine Metabols U Cannabinoids Screen Blood Type B POSITIVE Antibody Screen Negative Crossmatch See Detail BBK History Checked Patient has bt 11/13/17 11/14/17 11/14/17 19:34 03:21 06:00 WBC 5.9 D RBC 4.04 Hgb 8.5 L Hct 28.9 L MCV 71.5 L MCH 21.0 L MCHC 29.4 L RDW 17.8 H Plt Count 250 MPV 8.4 Gran % 61.6 Lymph % (Auto) 25.6 [place] % (Auto) 8.1 H Eos % (Auto) 4.4 Baso % (Auto) 0.3 Gran # 3.65 Lymph # (Auto) 1.5 [place] # (Auto) 0.5 Eos # (Auto) 0.3 Baso # (Auto) 0.02 Sodium Potassium Chloride Carbon Dioxide Anion Gap BUN Creatinine Est GFR ( Amer) Est GFR (Non-Af Amer) Random Glucose Calcium Transferrin Ferritin Total Bilirubin AST ALT Alkaline Phosphatase Troponin I < 0.01 Total Protein Albumin Globulin Albumin/Globulin Ratio Folate Urine Opiates Screen Negative Urine Methadone Screen Negative Ur Barbiturates Screen Negative Ur Phencyclidine Scrn Negative Ur Amphetamines Screen Negative U Benzodiazepines Scrn Negative U Oth Cocaine Metabols Negative U Cannabinoids Screen Negative Blood Type Antibody Screen Crossmatch BBK History Checked 11/14/17 06:00 WBC RBC Hgb Hct MCV MCH MCHC RDW Plt Count MPV Gran % Lymph % (Auto) [place] % (Auto) Eos % (Auto) Baso % (Auto) Gran # Lymph # (Auto) [place] # (Auto) Eos # (Auto) Baso # (Auto) Sodium 146 Potassium 3.9 Chloride 111 H Carbon Dioxide 23 Anion Gap 16 BUN 12 Creatinine 0.9 Est GFR ( Amer) > 60 Est GFR (Non-Af Amer) > 60 Random Glucose 94 Calcium 8.1 L Transferrin Ferritin Total Bilirubin 0.4 AST 29 ALT 37 Alkaline Phosphatase 39 Troponin I Total Protein 6.1 Albumin 3.4 Globulin 2.7 Albumin/Globulin Ratio 1.3 Folate Urine Opiates Screen Urine Methadone Screen Ur Barbiturates Screen Ur Phencyclidine Scrn Ur Amphetamines Screen U Benzodiazepines Scrn U Oth Cocaine Metabols U Cannabinoids Screen Blood Type Antibody Screen Crossmatch BBK History Checked Attending/Attestation - Attestation I have personally seen and examined this patient.: Yes I have fully participated in the care of the patient.: Yes I have reviewed all pertinent clinical information: Yes Notes (Text): 11/14/17 08:46 Late entry. Patient seen and examined on 11/13/17 evening at bedside. This is a 47 year old male with past medical history of basal cell carcinoma of the skin, PE s/p IVC filter and SC lovenox therapy, hiatal hernia, gastritis, HTN, anemia , syncopal episodes who was admitted for evaluation and treatment of abdominal pain, N/V, chest discomfort, shortness of breath and cramping of his lower extremities. GI was consulted for management of nausea/vomiting/abdominal pain and abnormalities found on CT of the abdomen including hiatal hernia, diverticulosis without acute diverticulitis. Upper Endoscopy 03/2016 (Dr. Villanueva) revealed 4 cm large combing hiatus paraesophaglea and sliding, few nonbleeding linear gastric ulcers suggestive of tavon ulcers with no stigmata of bleeding in gastric fundus and gastric body. Colonoscopy from 03/2016 (Dr. Villanueva) revealed diverticulosis in etire examine colon, internal hemorrhoids, one dimnutive polpy in cecum which was not removed as patient was on anticoagulation. Upper Endoscopy from 11/2016 (Dr. Prabhakar) revealed a normal oropharynx, lA grade A esophagitis, multiple linear gastric ulcers with lcean base in the fundus, multiple antral erosions, pyloric channel ulcer mild duodenitis. Abdomen/pelvis CT revealed large hiatal hernia with intrathoracic stomach, Diverticulosis without acute diverticulitis, Mild nonspecific splenomegal Ultrasound of lower extremities bilaterally revealed no sonographic evidence for deep venous thrombosis in the visualized segments of both lower extremities. CT angio revealed no evidence of central pulmonary embolism, however distal pulmonary arteries were limited by suboptimal enhancement and motion. He was found to have anemia and is currently getting blood transfusion. Prudent to proceed with EGD/ push and colonoscopy. Will start clear liquid diet and recommend anesthesia evaluation due to dyspnea at rest and persistent cough. Will require pulmonology and cardiology pre op evaluation
[2017-11-13] MEDS ORDERED: Iron Complex Polysacch 150mg Cap PO SCH (12:00)
[2017-11-13 12:26] LABS: FERRITIN 5.5 ng/mL
[2017-11-13 12:36] LABS: FOLATE 9.3 ng/mL
[2017-11-13 14:29] VITALS: BMI 32.5
[2017-11-13] MEDS ORDERED: Pneumococcal 23-Valent Vaccine IM ONE (14:29)
--- NOTE | 2017-11-13 21:54 | CARD ---
APPROVED REPORT EKG Measurement Heart [id number] <Conclusion> Normal sinus rhythm Normal ECG
[2017-11-14] MEDS: Sodium Chloride 0.9% 1,000 ML IV SCH ×2 (03:13→08:43)
[2017-11-14 04:31] LABS: BARBITURATES, UR NEGATIVE (NEGATIVE); BENZODIAZEPINES, UR NEGATIVE (NEGATIVE); OPIATES, UR NEGATIVE (NEGATIVE); PHENCYCLIDINE, UR NEGATIVE (NEGATIVE)
[2017-11-14 07:06] LABS: BASO # 0.02 K/mm3 (0.0-2.0); BASO % 0.3 % (0.0-3.0); EOS # 0.3 (0.0-0.7); EOS % 4.4 % (1.5-5.0); GRAN # 3.65 (1.4-6.5); GRAN % 61.6 % (50.0-68.0); HEMOGLOBIN 8.5 g/dL (14.0-18.0); LYMPH # 1.5 (1.2-3.4); LYMPH % 25.6 % (22.0-35.0); MEAN CELL VOLUME 71.5 fl (80.0-105.0); MEAN CORPUSCULAR HGB CONC 29.4 g/dl (31.0-37.0); MEAN PLATELET VOLUME 8.4 fl (7.0-11.0); MONO # 0.5 (0.1-0.6); MONO % 8.1 % (1.0-6.0); RBC 4.04 10^6/uL (3.5-6.1); RED CELL DISTRIBUTION WIDTH 17.8 % (11.5-14.5); WHITE BLOOD COUNT 5.9 10^3/ul (4.5-11.0)
--- NOTE | 2017-11-14 07:39 | CP.PCM.PN ---
<Sid Mcpherson - Last Filed: 11/14/17 09:23> Subjective - Date & Time of Evaluation Date of Evaluation: 11/14/17 Time of Evaluation: 07:00 - Subjective Subjective: Subjective: Patient seen and examined at bedside. Admits to one bout of nonbloody nonbilious emesis overnight. Tolerating diet. Denies fever, chills, chest pain, SOB, diarrhea, constipation. Physical Examination: - Constitutional Appears: Non-toxic - Head Exam Head Exam: ATRAUMATIC, NORMAL INSPECTION, NORMOCEPHALIC - Eye Exam Eye Exam: EOMI - ENT Exam ENT Exam: Mucous Membranes Moist - Neck Exam Neck exam: Positive for: Full Rom - Respiratory Exam Respiratory Exam: Clear to Auscultation Bilateral, NORMAL BREATHING PATTERN. absent: Rhonchi, Wheezes - Cardiovascular Exam Cardiovascular Exam: +S1, +S2. absent: Systolic Murmur - GI/Abdominal Exam GI & Abdominal Exam: Normal Bowel Sounds, Soft, Tenderness (mid epigastric and LUQ). absent: Firm, Guarding, Organomegaly - Extremities Exam Extremities exam: Positive for: normal capillary refill, pedal pulses present. Negative for: calf tenderness, pedal edema, tenderness - Neurological Exam Neurological exam: Alert, Oriented x3 - Psychiatric Exam Psychiatric exam: Normal Affect, Normal Mood - Skin Skin Exam: Dry, Warm Additional comments: Left anterior superior chest with small 0.3cm dark blue,black discoloration Assessment and Plan: Patient is a 47 year old male with past medical history of basal cell carcinoma of the skin, PE s/p IVC filter and SC lovenox therapy, hiatal hernia, gastritis , HTN, anemia, syncopal episodes who was admitted for evaluation and treatment of abdominal pain, N/V, chest discomfort, shortness of breath and cramping of his lower extremities. GI was consulted for management of nausea/vomiting/ abdominal pain and abnormalities found on CT of the abdomen including hiatal hernia, diverticulosis without acute diverticulitis. Upper Endoscopy 03/2016 (Dr. Villanueva) revealed 4 cm large combing hiatus paraesophaglea and sliding, few nonbleeding linear gastric ulcers suggestive of tavon ulcers with no stigmata of bleeding in gastric fundus and gastric body. Colonoscopy from 03/2016 (Dr. Villanueva) revealed diverticulosis in etire examine colon, internal hemorrhoids, one dimnutive polpy in cecum which was not removed as patient was on anticoagulation. Upper Endoscopy from 11/2016 (Dr. Prabhakar) revealed a normal oropharynx, lA grade A esophagitis, multiple linear gastric ulcers with lcean base in the fundus, multiple antral erosions, pyloric channel ulcer mild duodenitis. Abdomen/pelvis CT revealed Large hiatal hernia with intrathoracic stomach, Diverticulosis without acute diverticulitis, Mild nonspecific splenomegal Ultrasound of lower extremities bilaterally revealed no sonographic evidence for deep venous thrombosis in the visualized segments of both lower extremities. CT angio revealed no evidence of central pulmonary embolism, however distal pulmonary arteries were limited by suboptimal enhancement and motion. Abdominal Pain, Nausea/Vomiting Large Hiatal Hernia Hx of Gastritis Hx of BCC of the skin Hx of HTN Hx of Anemia - c/w clear liquid diet, npo after midnight - golytely to start at 1300 on 11/14/17 - doculax 10mg x 1 at 1800 on 11/14/17 - endoscopy and colonoscopy tentative for 11/15/17 - requires cardiology clearance - requires anesthesia pre- procedure evaluation - recommend head of bed above 30 degrees - transfuse if Hemoglobin < 7, pt is s/p 1 unit pRBCs - c/w IVF - c/w thiamine and folate Thank you for the opportunity in participating in the care of this patient. Patient case to be reviewed with and plan approved by attending physician, Objective - Vital Signs/Intake and Output Vital Signs (last 24 hours): Temp Pulse Resp BP Pulse Ox 98.4 F 67 22 129/71 98 11/14/17 05:37 11/14/17 05:37 11/14/17 05:37 11/14/17 05:37 11/14/17 05:37 Intake and Output: 11/14/17 11/14/17 06:59 18:59 Intake Total 2280 Balance 2280 - Medications Medications: Current Medications Docusate Sodium (Colace) 100 mg PO TID [facility] Last Admin: 11/13/17 17:21 Dose: Not Given Ferrous Sulfate (Feosol) 324 mg PO TID [facility] Last Admin: 11/13/17 17:21 Dose: Not Given Folic Acid (Folic Acid) 1 mg PO DAILY [facility] Last Admin: 11/13/17 10:38 Dose: Not Given Sodium Chloride (Sodium Chloride 0.9%) 1,000 mls @ 150 mls/hr IV .Q6H40M [facility] Last Admin: 11/14/17 03:13 Dose: 150 mls/hr Pantoprazole Sodium (Protonix Inj) 40 mg IVP Q12 [facility] Last Admin: 11/13/17 21:37 Dose: 40 mg Thiamine HCl (Vitamin B1 Tab) 100 mg PO DAILY [facility] Last Admin: 11/13/17 10:38 Dose: Not Given - Labs Labs: 11/14/17 06:00 11/13/17 07:45 PT 11.2 SECONDS (9.4-12.5) 11/13/17 02:15 INR 0.98 (0.93-1.08) 11/13/17 02:15 APTT 23.9 Seconds (25.1-36.5) L 11/13/17 02:15 <Bill Knight - Last Filed: 11/14/17 09:56> Objective - Vital Signs/Intake and Output Vital Signs (last 24 hours): Temp Pulse Resp BP Pulse Ox 98.4 F 67 22 129/71 98 11/14/17 05:37 11/14/17 05:37 11/14/17 05:37 11/14/17 05:37 11/14/17 05:37 Intake and Output: 11/14/17 11/14/17 06:59 18:59 Intake Total 2280 Balance 2280 - Medications Medications: Current Medications Bisacodyl (Dulcolax) 10 mg PO ONCE ONE Stop: 11/14/17 18:01 Docusate Sodium (Colace) 100 mg PO TID [facility] Last Admin: 11/13/17 17:21 Dose: Not Given Ferrous Sulfate (Feosol) 324 mg PO TID [facility] Last Admin: 11/13/17 17:21 Dose: Not Given Folic Acid (Folic Acid) 1 mg PO DAILY [facility] Last Admin: 11/13/17 10:38 Dose: Not Given Sodium Chloride (Sodium Chloride 0.9%) 1,000 mls @ 100 mls/hr IV .Q10H [facility] Last Admin: 11/14/17 08:43 Dose: 100 mls/hr Pantoprazole Sodium (Protonix Inj) 40 mg IVP Q12 [facility] Last Admin: 11/13/17 21:37 Dose: 40 mg Polyethylene Glycol/Electrolytes (Golytely) 4,000 ml PO ONCE ONE Stop: 11/14/17 13:01 Thiamine HCl (Vitamin B1 Tab) 100 mg PO DAILY [facility] Last Admin: 11/13/17 10:38 Dose: Not Given - Labs Labs: 11/14/17 06:00 11/14/17 06:00 PT 11.2 SECONDS (9.4-12.5) 11/13/17 02:15 INR 0.98 (0.93-1.08) 11/13/17 02:15 APTT 23.9 Seconds (25.1-36.5) L 11/13/17 02:15 Attending/Attestation - Attestation I have personally seen and examined this patient.: Yes I have fully participated in the care of the patient.: Yes I have reviewed all pertinent clinical information, including history, physical exam and plan: Yes Notes (Text): 11/14/17 09:55 47 year old male who presents with recurrent anemia. Has prior h/o hiatal hernia /tavon ulcer/H. pylori. Plan for upper/lower endoscopy tomorrow. Prep today. PPI empirically.
[2017-11-14 07:41] LABS: ALB/GLOB RATIO 1.3 (1.1-1.8); ALBUMIN 3.4 g/dL (3.0-4.8); ALT/SGPT 37 U/L (7-56); AST/SGOT 29 U/L (17-59); BLOOD UREA NITROGEN 12 mg/dL (7-21); CALCIUM 8.1 mg/dL (8.4-10.5); GFR AFRICAN-AMERICAN > 60; GFR NON-AFRICAN AMERICAN > 60
--- NOTE | 2017-11-14 12:48 | CP.PCM.PN ---
<Ed Awad - Last Filed: 11/14/17 12:45> Subjective - Date & Time of Evaluation Date of Evaluation: 11/14/17 Time of Evaluation: 12:45 - Subjective Subjective: Patient seen and examined at bedside. Had one episode of vomiting last night. Belly pain has resolved. No other complaints a this time. Objective - Vital Signs/Intake and Output Vital Signs (last 24 hours): Temp Pulse Resp BP Pulse Ox 97.3 F L 73 18 136/87 98 11/14/17 12:00 11/14/17 12:00 11/14/17 12:00 11/14/17 12:00 11/14/17 05:37 Intake and Output: 11/14/17 11/14/17 06:59 18:59 Intake Total 2280 Balance 2280 - Medications Medications: Current Medications Bisacodyl (Dulcolax) 10 mg PO ONCE ONE Stop: 11/14/17 18:01 Docusate Sodium (Colace) 100 mg PO TID [facility] Last Admin: 11/14/17 10:42 Dose: 100 mg Ferrous Sulfate (Feosol) 324 mg PO TID [facility] Last Admin: 11/14/17 10:43 Dose: 324 mg Folic Acid (Folic Acid) 1 mg PO DAILY [facility] Last Admin: 11/14/17 10:42 Dose: 1 mg Sodium Chloride (Sodium Chloride 0.9%) 1,000 mls @ 100 mls/hr IV .Q10H [facility] Last Admin: 11/14/17 08:43 Dose: 100 mls/hr Pantoprazole Sodium (Protonix Inj) 40 mg IVP Q12 [facility] Last Admin: 11/14/17 10:43 Dose: 40 mg Polyethylene Glycol/Electrolytes (Golytely) 4,000 ml PO ONCE ONE Stop: 11/14/17 13:01 Thiamine HCl (Vitamin B1 Tab) 100 mg PO DAILY [facility] Last Admin: 11/14/17 10:42 Dose: 100 mg - Labs Labs: 11/14/17 06:00 11/14/17 06:00 PT 11.2 SECONDS (9.4-12.5) 11/13/17 02:15 INR 0.98 (0.93-1.08) 11/13/17 02:15 APTT 23.9 Seconds (25.1-36.5) L 11/13/17 02:15 - Constitutional Appears: Well - Head Exam Head Exam: ATRAUMATIC, NORMAL INSPECTION, NORMOCEPHALIC - Eye Exam Eye Exam: EOMI, Normal appearance, PERRL Pupil Exam: NORMAL ACCOMODATION, PERRL - ENT Exam ENT Exam: Mucous Membranes Moist, Normal Exam - Neck Exam Neck Exam: Full ROM, Normal Inspection. absent: Lymphadenopathy - Respiratory Exam Respiratory Exam: Clear to Ausculation Bilateral, NORMAL BREATHING PATTERN - Cardiovascular Exam Cardiovascular Exam: REGULAR RHYTHM, +S1, +S2. absent: Murmur - GI/Abdominal Exam GI & Abdominal Exam: Soft, Normal Bowel Sounds. absent: Tenderness - Extremities Exam Extremities Exam: Full ROM, Normal Capillary Refill, Normal Inspection. absent : Joint Swelling, Pedal Edema - Back Exam Back Exam: NORMAL INSPECTION - Neurological Exam Neurological Exam: Alert, Awake, CN II-XII Intact, Normal Gait, Oriented x3 - Psychiatric Exam Psychiatric exam: Normal Affect, Normal Mood - Skin Skin Exam: Dry, Intact, Normal Color, Warm Assessment and Plan (1) Iron deficiency anemia Assessment & Plan: GI ([facility]) - EGD/Cscope tomorrow Cards ([facility]) Cardio clearance - ordered echo for SOB - will follow up transfused 1 unit - h/h stable Feosol 325 mg PO QD - absorption will be decreased by oral PPI so will add Vitamin C to increase absorption Folic acid 1mg PO QD Protonix 40 IV Q12 NS @ 100 Thiamine 100 PO QD F/U reticulocyte count, should have retic count repeated in 1 week to show increase after Iron therapy. Status: Chronic (2) Prophylactic measure Assessment & Plan: SCD VTE CI as patient may have GI bleed Status: Acute <Lucie Schmidt - Last Filed: 11/15/17 15:32> Objective - Vital Signs/Intake and Output Vital Signs (last 24 hours): Temp Pulse Resp BP Pulse Ox 98 F 70 12 131/81 99 11/15/17 10:30 11/15/17 10:30 11/15/17 10:30 11/15/17 10:30 11/15/17 10:30 Intake and Output: 11/15/17 11/15/17 06:59 18:59 Intake Total 360 Balance 360 - Labs Labs: PT 11.2 SECONDS (9.4-12.5) 11/13/17 02:15 INR 0.98 (0.93-1.08) 11/13/17 02:15 APTT 23.9 Seconds (25.1-36.5) L 11/13/17 02:15 Attending/Attestation - Attestation I have personally seen and examined this patient.: Yes I have fully participated in the care of the patient.: Yes I have reviewed all pertinent clinical information, including history, physical exam and plan: Yes Notes (Text): 11/15/17 15:28 Medical record note made by the resident after discussion with my direction and input after the patient was personally seen and examined by me. I have reviewed the chart and agree that the record accurately reflects by personal performance of the history, physical exam, data review, and medical decision-making, in the course for the patient. I have also personally directed the plan of care. 47 year old male with past medical history of basal cell carcinoma of the skin, PE s/p IVC filter , not on any anticoagulation at this time , hiatal hernia, gastritis, HTN, anemia, syncopal episodes who was admitted with symptomatic microcytic hypochromic anemia, patient was given one unit of PRBC and he is feeling better.Patient has been evaluated by GI and is scheduled for EGD and Colonoscopy tomorrow. Management plan was discussed in detail with patient. Education was provided.
[2017-11-14] MEDS ORDERED: Peg-Electrolyte Oral Soln 4L (Golytely) PO ONE (13:00)
[2017-11-14] MEDS ORDERED: Bisacodyl 5mg EC Tab PO ONE (18:00)
--- NOTE | 2017-11-14 19:55 | CON ---
DATE: 11/14/2017 CARDIOLOGY CONSULTATION HISTORY OF PRESENT ILLNESS: The patient is a 47-year-old male who presents with nausea and vomiting. He denies shortness of breath. The patient's past medical history is notable for history of DVT in which a filter was placed. He was found to be markedly anemic. He denies smoking, but he does admit to finally taking cocaine once the results of his toxicology was reported to him. He is not on any anticoagulation. No previous cardiac history. No previous lung disease. REVIEW OF SYSTEMS: Fourteen-point review of systems is reviewed in detail. No angina. No chest pain, no shortness of breath. No edema in the lower extremities. PHYSICAL EXAMINATION: VITAL SIGNS: Blood pressure 129/71, heart rate in the 60s. NECK: Negative JVD. LUNGS: Without rales. HEART: S1, S2. EXTREMITIES: Without edema. LABORATORY DATA: Hemoglobin is 8.5. Chemistries: BUN and creatinine are unremarkable. Troponins are negative x3. IMPRESSION: 1. Marked anemia. 2. Abdominal pain. 3. No evidence for acute coronary syndrome. 4. History of deep venous thrombosis. 5. Previous echocardiogram shows normal left ventricular function with no pulmonary hypertension. 6. History of cocaine abuse. PLAN: Given these findings, there is no cardiac contraindications to his planned endoscopy. We will discontinue telemetry today. Because of remote history dyspnea, we will obtain an echocardiogram although there is no reason to wait for the results of the echo before his endoscopy. Jose Urbano MD
--- NOTE | 2017-11-14 21:12 | CARD ---
APPROVED REPORT EXAM: Two-dimensional and M-mode echocardiogram with Doppler and color Doppler. INDICATION Dyspnea Chest Pain 2D DIMENSIONS Left Atrium (2D)4.3 (1.6-4.0cm)IVSd1.2 (0.7-1.1cm) LVDd5.4 (3.9-5.9cm)PWd1.2 (0.7-1.1cm) LVDs3.5 (2.5-4.0cm)FS (%) 35.3 % LVEF (%)64.2 (>50%) M-Mode DIMENSIONS Aortic Root2.80 (2.2-3.7cm)Aortic Cusp Exc.2.20 (1.5-2.0cm) Aortic Valve AoV Peak Pplezcxe166.0cm/Emil Peak GR.10mmHg Mitral Valve MV E Jyyynivp75.8cm/sMV A Ietnhjwn78.5cm/sE/A ratio1.2 TDI E/Lateral E'0.0E/Medial E'0.0 Tricuspid Valve TR Peak Zepyllgb302us/sRAP [id number] Peak Gr.23mmHg [id number] LEFT VENTRICLE The left ventricle is normal size. There is normal left ventricular wall thickness. The left ventricular function is normal. The left ventricular ejection fraction is within the normal range. There is normal LV segmental wall motion. The left ventricular diastolic function is normal. RIGHT VENTRICLE The right ventricle is normal size. There is normal right ventricular wall thickness. The right ventricular systolic function is normal. ATRIA The left atrium is borderline dilated. The right atrium size is normal. AORTIC VALVE The aortic valve is mildly thickened. There is mild aortic regurgitation. MITRAL VALVE The mitral valve is normal in structure. Mitral regurgitation is trace. TRICUSPID VALVE The tricuspid valve is normal in structure. There is trace tricuspid regurgitation. GREAT VESSELS The aortic root is normal in size. PERICARDIAL EFFUSION There is no pericardial effusion. <Conclusion> The left ventricle is normal size. There is normal left ventricular wall thickness. The left ventricular function is normal. The left ventricular ejection fraction is within the normal range. There is normal LV segmental wall motion. The left ventricular diastolic function is normal. There is mild aortic regurgitation.
[2017-11-15] MEDS: Sodium Chloride 0.9% 1,000 ML IV SCH (00:59)
[2017-11-15 06:52] LABS: BASO # 0.03 K/mm3 (0.0-2.0); BASO % 0.5 % (0.0-3.0); EOS # 0.3 (0.0-0.7); EOS % 4.5 % (1.5-5.0); GRAN # 3.55 (1.4-6.5); GRAN % 61.7 % (50.0-68.0); HEMOGLOBIN 8.4 g/dL (14.0-18.0); LYMPH # 1.4 (1.2-3.4); LYMPH % 23.4 % (22.0-35.0); MEAN CELL VOLUME 71.1 fl (80.0-105.0); MEAN CORPUSCULAR HEMOGLOBIN 21.3 pg (25.0-35.0); MEAN PLATELET VOLUME 8.6 fl (7.0-11.0); MONO # 0.6 (0.1-0.6); MONO % 9.9 % (1.0-6.0); RBC 3.94 10^6/uL (3.5-6.1); WHITE BLOOD COUNT 5.8 10^3/ul (4.5-11.0)
[2017-11-15 07:13] LABS: ALB/GLOB RATIO 1.3 (1.1-1.8); ALBUMIN 3.5 g/dL (3.0-4.8); ALT/SGPT 31 U/L (7-56); AST/SGOT 32 U/L (17-59); BLOOD UREA NITROGEN 8 mg/dL (7-21); CALCIUM 8.5 mg/dL (8.4-10.5); GFR AFRICAN-AMERICAN > 60; GFR NON-AFRICAN AMERICAN > 60
[2017-11-15] MEDS ORDERED: Propofol 10 mg/ml Inj (20 ML) ONE ×3 (09:31→09:57)
[2017-11-15] MEDS ORDERED: Sodium Chloride 0.9% 1,000 ML IV SCH (10:00)
[2017-11-15 10:30] VITALS: PULSE 70; RESP 12; TEMP 98; O2SAT 99
[2017-11-15 10:35] VITALS: BP 131/81
--- NOTE | 2017-11-15 12:38 | CP.PCM.DIS ---
<Ed Awad - Last Filed: 11/15/17 12:34> Provider - Provider Date of Admission: 11/15/17 08:03 Attending physician: Lucie Schmidt MD Primary care physician: Brigid Roberts MD Consults: GI: Porter Time Spent in preparation of Discharge (in minutes): 45 Diagnosis - Discharge Diagnosis (1) Iron deficiency anemia Status: Chronic (2) Prophylactic measure Status: Acute Hospital Course - Lab Results Lab Results: Most Recent Lab Values WBC 5.8 10^3/ul (4.5-11.0) 11/15/17 05:45 RBC 3.94 10^6/uL (3.5-6.1) 11/15/17 05:45 Hgb 8.4 g/dL (14.0-18.0) L 11/15/17 05:45 Hct 28.0 % (42.0-52.0) L 11/15/17 05:45 MCV 71.1 fl (80.0-105.0) L 11/15/17 05:45 MCH 21.3 pg (25.0-35.0) L 11/15/17 05:45 MCHC 30.0 g/dl (31.0-37.0) L 11/15/17 05:45 RDW 18.0 % (11.5-14.5) H 11/15/17 05:45 Plt Count 257 10^3/uL (120.0-450.0) 11/15/17 05:45 MPV 8.6 fl (7.0-11.0) 11/15/17 05:45 Gran % 61.7 % (50.0-68.0) 11/15/17 05:45 Lymph % (Auto) 23.4 % (22.0-35.0) 11/15/17 05:45 [place] % (Auto) 9.9 % (1.0-6.0) H 11/15/17 05:45 Eos % (Auto) 4.5 % (1.5-5.0) 11/15/17 05:45 Baso % (Auto) 0.5 % (0.0-3.0) 11/15/17 05:45 Gran # 3.55 (1.4-6.5) 11/15/17 05:45 Lymph # (Auto) 1.4 (1.2-3.4) 11/15/17 05:45 [place] # (Auto) 0.6 (0.1-0.6) 11/15/17 05:45 Eos # (Auto) 0.3 (0.0-0.7) 11/15/17 05:45 Baso # (Auto) 0.03 K/mm3 (0.0-2.0) 11/15/17 05:45 Retic Count 1.91 % (0.5-1.5) H 11/15/17 05:45 PT 11.2 SECONDS (9.4-12.5) 11/13/17 02:15 INR 0.98 (0.93-1.08) 11/13/17 02:15 APTT 23.9 Seconds (25.1-36.5) L 11/13/17 02:15 Sodium 145 mmol/L (132-148) 11/15/17 05:45 Potassium 3.9 mmol/L (3.6-5.0) 11/15/17 05:45 Chloride 110 mmol/L (98-107) H 11/15/17 05:45 Carbon Dioxide 25 mmol/L (21-33) 11/15/17 05:45 Anion Gap 15 (10-20) 11/15/17 05:45 BUN 8 mg/dL (7-21) 11/15/17 05:45 Creatinine 0.9 mg/dl (0.8-1.5) 11/15/17 05:45 Est GFR ( Amer) > 60 11/15/17 05:45 Est GFR (Non-Af Amer) > 60 11/15/17 05:45 Random Glucose 89 mg/dL (70-110) 11/15/17 05:45 Calcium 8.5 mg/dL (8.4-10.5) 11/15/17 05:45 Phosphorus 3.1 mg/dL (2.5-4.5) 11/15/17 05:45 Magnesium 2.0 mg/dL (1.7-2.2) 11/15/17 05:45 Iron 20 ug/dL (45-180) L 11/13/17 07:45 TIBC 461 ug/dL (261-462) 11/13/17 07:45 % Saturation 4 % (20-55) L 11/13/17 07:45 Transferrin 347.29 mg/dL (206-381) 11/13/17 07:45 Ferritin 5.5 ng/mL 11/13/17 07:45 Total Bilirubin 0.3 mg/dL (0.2-1.3) 11/15/17 05:45 AST 32 U/L (17-59) 11/15/17 05:45 ALT 31 U/L (7-56) 11/15/17 05:45 Alkaline Phosphatase 40 U/L (38-126) 11/15/17 05:45 Lactate Dehydrogenase 609 U/L (333-699) 11/13/17 01:45 Total Creatine Kinase 785 U/L (35-230) H 11/13/17 01:45 CK-MB (CK-2) 3.4 ng/mL (0.0-3.6) 11/13/17 01:45 CK-MB (CK-2) % Cancelled 11/13/17 01:45 Troponin I < 0.01 ng/mL 11/13/17 19:34 Total Protein 6.3 g/dL (5.8-8.3) 11/15/17 05:45 Albumin 3.5 g/dL (3.0-4.8) 11/15/17 05:45 Globulin 2.7 gm/dL 11/15/17 05:45 Albumin/Globulin Ratio 1.3 (1.1-1.8) 11/15/17 05:45 Lipase 202 U/L (23-300) 11/13/17 01:45 Folate 9.3 ng/mL 11/13/17 07:45 Urine Opiates Screen Negative (NEGATIVE) 11/14/17 03:21 Urine Methadone Screen Negative (NEGATIVE) 11/14/17 03:21 Ur Barbiturates Screen Negative (NEGATIVE) 11/14/17 03:21 Ur Phencyclidine Scrn Negative (NEGATIVE) 11/14/17 03:21 Ur Amphetamines Screen Negative (NEGATIVE) 11/14/17 03:21 U Benzodiazepines Scrn Negative (NEGATIVE) 11/14/17 03:21 U Oth Cocaine Metabols Negative (NEGATIVE) 11/14/17 03:21 U Cannabinoids Screen Negative (NEGATIVE) 11/14/17 03:21 Blood Type B POSITIVE 11/13/17 12:50 Antibody Screen Negative 11/13/17 12:50 Crossmatch See Detail 11/13/17 12:50 BBK History Checked Patient has bt 11/13/17 12:50 - Hospital Course Hospital Course: On Admission: 47 year old male with past medical history that includes BCC of skin, PE s/p IVC filter and SC lovenox therapy, hiatal hernia, gastritis, HTN, anemia, syncopal episodes who presents with few day history of shortness of breath and cramping of his lower extremities. Patient indicates that he feels like his blood level's are low. He also complains of cough and daily vomiting episodes. Patient indicates after he eats and often when he lays flat or at incline he has regurgitation/vomiting of non-bilious brown to black vomit at least once a day. He states that his vomiting episodes have increased from once a week. Patient reports being taken off his blood thinners a few months ago. Patient also appreciates mid to left upper abdominal pain he credits to his chronic hiatal hernia. He denies fever, chills, diarrhea, numbness, changes in vision, headache, gait instability. 12 point ROS other than mentioned in HPI is benign Hospital course: Patient was transfused 1 unit PRBC. went for colonoscopy and egd all of which did not show any active bleeding. Poor prep. Patient will need out patient follow up with GI for repeat colonoscopy or possible capsule as patient has recurrent episodes of anemia requiring blood transfusion. Patient should follow up with heme onc Dr. Johnson for management of his iron def. anemia. Patient should follow up with Surgery Dr Anjali Mcpehrson for management of his hiatal hernia as it continue to cause him refractory GERD despite PPI therapy and recurrent vomiting. Patient was provided with PPI and Iron supplements. Discharge Exam - Head Exam Head Exam: ATRAUMATIC, NORMAL INSPECTION, NORMOCEPHALIC - Eye Exam Eye Exam: EOMI Pupil Exam: NORMAL ACCOMODATION - Respiratory Exam Respiratory Exam: Clear to PA & Lateral, UNREMARKABLE - Cardiovascular Exam Cardiovascular Exam: REGULAR RHYTHM - GI/Abdominal Exam GI & Abdominal Exam: Normal Bowel Sounds, Soft. absent: Distended, Tenderness - Neurological Exam Neurological exam: Alert, Oriented x3 - Psychiatric Exam Psychiatric exam: Normal Affect, Normal Mood - Skin Skin Exam: Dry, Intact, Normal Color, Warm Discharge Plan - Discharge Medications Prescriptions: Ascorbic Acid [Vitamin C 500 mg Tab] 500 mg PO DAILY #30 tab Docusate [Colace] 100 mg PO TID #90 cap Ferrous Sulfate [Feosol] 324 mg PO TID #30 ect Folic Acid 1 mg PO DAILY #30 tab Pantoprazole Sodium [Protonix] 40 mg PO DAILY #30 ect Thiamine [Vitamin B1 Tab] 100 mg PO DAILY #30 tab - Follow Up Plan Condition: STABLE Disposition: HOME/ ROUTINE Instructions: Chest Pain (DC), Acute Abdominal Pain (DC) Additional Instructions: Please follow up with your primary care provider in 7-10 days Please follow up with Dr. Anjali Mcpherson at the [facility] at [facility] for evaluation of your hiatal hernia. Since you have had recurrent GERD symptoms despite PPI therapy and continue to have nausea and vomiting. Please call to make an appointment. I have included his office information. Please follow up with GI (Dr. Buenrostro) in his office for a repeat colonoscopy. Please call to make an appointment. I have attached his office information. Please follow up with Dr. Johnson in his office for evaluation of you iron deficiency anemia. Please call to make an appointment. I have attached his office information Please take all the medications I have prescribed to you. Referrals: [facility] [Outside] Dillon Johnson MD [Medical Doctor] - Brigid Roberts MD [Primary Care Provider] - Mitra Mcpherson MD [Staff Provider] - <Lucie Schmidt - Last Filed: 11/15/17 15:40> Provider - Provider Date of Admission: 11/15/17 08:03 Attending physician: Lucie Schmidt MD Primary care physician: Brigid Roberts MD Hospital Course - Lab Results Lab Results: Most Recent Lab Values WBC 5.8 10^3/ul (4.5-11.0) 11/15/17 05:45 RBC 3.94 10^6/uL (3.5-6.1) 11/15/17 05:45 Hgb 8.4 g/dL (14.0-18.0) L 11/15/17 05:45 Hct 28.0 % (42.0-52.0) L 11/15/17 05:45 MCV 71.1 fl (80.0-105.0) L 11/15/17 05:45 MCH 21.3 pg (25.0-35.0) L 11/15/17 05:45 MCHC 30.0 g/dl (31.0-37.0) L 11/15/17 05:45 RDW 18.0 % (11.5-14.5) H 11/15/17 05:45 Plt Count 257 10^3/uL (120.0-450.0) 11/15/17 05:45 MPV 8.6 fl (7.0-11.0) 11/15/17 05:45 Gran % 61.7 % (50.0-68.0) 11/15/17 05:45 Lymph % (Auto) 23.4 % (22.0-35.0) 11/15/17 05:45 [place] % (Auto) 9.9 % (1.0-6.0) H 11/15/17 05:45 Eos % (Auto) 4.5 % (1.5-5.0) 11/15/17 05:45 Baso % (Auto) 0.5 % (0.0-3.0) 11/15/17 05:45 Gran # 3.55 (1.4-6.5) 11/15/17 05:45 Lymph # (Auto) 1.4 (1.2-3.4) 11/15/17 05:45 [place] # (Auto) 0.6 (0.1-0.6) 11/15/17 05:45 Eos # (Auto) 0.3 (0.0-0.7) 11/15/17 05:45 Baso # (Auto) 0.03 K/mm3 (0.0-2.0) 11/15/17 05:45 Retic Count 1.91 % (0.5-1.5) H 11/15/17 05:45 PT 11.2 SECONDS (9.4-12.5) 11/13/17 02:15 INR 0.98 (0.93-1.08) 11/13/17 02:15 APTT 23.9 Seconds (25.1-36.5) L 11/13/17 02:15 Sodium 145 mmol/L (132-148) 11/15/17 05:45 Potassium 3.9 mmol/L (3.6-5.0) 11/15/17 05:45 Chloride 110 mmol/L (98-107) H 11/15/17 05:45 Carbon Dioxide 25 mmol/L (21-33) 11/15/17 05:45 Anion Gap 15 (10-20) 11/15/17 05:45 BUN 8 mg/dL (7-21) 11/15/17 05:45 Creatinine 0.9 mg/dl (0.8-1.5) 11/15/17 05:45 Est GFR ( Amer) > 60 11/15/17 05:45 Est GFR (Non-Af Amer) > 60 11/15/17 05:45 Random Glucose 89 mg/dL (70-110) 11/15/17 05:45 Calcium 8.5 mg/dL (8.4-10.5) 11/15/17 05:45 Phosphorus 3.1 mg/dL (2.5-4.5) 11/15/17 05:45 Magnesium 2.0 mg/dL (1.7-2.2) 11/15/17 05:45 Iron 20 ug/dL (45-180) L 11/13/17 07:45 TIBC 461 ug/dL (261-462) 11/13/17 07:45 % Saturation 4 % (20-55) L 11/13/17 07:45 Transferrin 347.29 mg/dL (206-381) 11/13/17 07:45 Ferritin 5.5 ng/mL 11/13/17 07:45 Total Bilirubin 0.3 mg/dL (0.2-1.3) 11/15/17 05:45 AST 32 U/L (17-59) 11/15/17 05:45 ALT 31 U/L (7-56) 11/15/17 05:45 Alkaline Phosphatase 40 U/L (38-126) 11/15/17 05:45 Lactate Dehydrogenase 609 U/L (333-699) 11/13/17 01:45 Total Creatine Kinase 785 U/L (35-230) H 11/13/17 01:45 CK-MB (CK-2) 3.4 ng/mL (0.0-3.6) 11/13/17 01:45 CK-MB (CK-2) % Cancelled 11/13/17 01:45 Troponin I < 0.01 ng/mL 11/13/17 19:34 Total Protein 6.3 g/dL (5.8-8.3) 11/15/17 05:45 Albumin 3.5 g/dL (3.0-4.8) 11/15/17 05:45 Globulin 2.7 gm/dL 11/15/17 05:45 Albumin/Globulin Ratio 1.3 (1.1-1.8) 11/15/17 05:45 Lipase 202 U/L (23-300) 11/13/17 01:45 Folate 9.3 ng/mL 11/13/17 07:45 Urine Opiates Screen Negative (NEGATIVE) 11/14/17 03:21 Urine Methadone Screen Negative (NEGATIVE) 11/14/17 03:21 Ur Barbiturates Screen Negative (NEGATIVE) 11/14/17 03:21 Ur Phencyclidine Scrn Negative (NEGATIVE) 11/14/17 03:21 Ur Amphetamines Screen Negative (NEGATIVE) 11/14/17 03:21 U Benzodiazepines Scrn Negative (NEGATIVE) 11/14/17 03:21 U Oth Cocaine Metabols Negative (NEGATIVE) 11/14/17 03:21 U Cannabinoids Screen Negative (NEGATIVE) 11/14/17 03:21 Blood Type B POSITIVE 11/13/17 12:50 Antibody Screen Negative 11/13/17 12:50 Crossmatch See Detail 11/13/17 12:50 BBK History Checked Patient has bt 11/13/17 12:50 Attending/Attestation - Attestation I have personally seen and examined this patient.: Yes I have fully participated in the care of the patient.: Yes I have reviewed all pertinent clinical information, including history, physical exam and plan: Yes Notes (Text): 11/15/17 15:35 Medical record note made by the resident after discussion with my direction and input after the patient was personally seen and examined by me. I have reviewed the chart and agree that the record accurately reflects by personal performance of the history, physical exam, data review, and medical decision-making, in the course for the patient. I have also personally directed the plan of care. 47 year old male with past medical history of basal cell carcinoma of the skin, PE s/p IVC filter , not on any anticoagulation at this time , hiatal hernia, gastritis, HTN, anemia, syncopal episodes who was admitted with symptomatic microcytic hypochromic anemia, patient was given one unit of PRBC and he is feeling better.Patient underwent EGD that showed gastritis.There was no evidence of bleeding.Colonoscopy was incomplete as patient was not well prep.He is asymptomatic and is feeling better.He is ambulatory. He will be discharged home and will follow up with PCP Management plan was discussed in detail with patient. Education was provided.
--- NOTE | 2017-11-15 15:31 | PN ---
DATE: 11/15/2017 CARDIOLOGY FOLLOWUP The patient is without distress. Vital signs are stable. Physical exam is unchanged. Echocardiogram reveals good LV function with mild aortic insufficiency. Given these findings, there is no cardiac contraindications to his planned GI workup. Jose Urbano MD
== END 2017-11-15 15:17 | disposition home or self-care (01) ==
LOC: ED 00:20 → ERH 05:38 → 2RSO 09:14 → 3RNO 11-14 19:01 → OBSVTOIN 11-15 08:03 → INTOOBSV 11-15 08:03
PROVIDERS: ADMIT Internal Medicine; ATTEND Internal Medicine
DX: D50.9 Iron deficiency anemia, unspecified (principal); R07.89 Other chest pain; K44.9 Diaphragmatic hernia without obstruction or gangrene; K29.70 Gastritis, unspecified, without bleeding; I10 Essential (primary) hypertension; K57.30 Diverticulosis of large intestine without perforation or abscess without bleeding; M54.16 Radiculopathy, lumbar region; K64.1 Second degree hemorrhoids; I35.1 Nonrheumatic aortic (valve) insufficiency; F14.10 Cocaine abuse, uncomplicated; M54.12 Radiculopathy, cervical region; I73.9 Peripheral vascular disease, unspecified; K21.9 Gastro-esophageal reflux disease without esophagitis; B96.81 Helicobacter pylori [H. pylori] as the cause of diseases classified elsewhere; K59.00 Constipation, unspecified; R55 Syncope and collapse; R25.2 Cramp and spasm; R06.02 Shortness of breath; Z85.820 Personal history of malignant melanoma of skin; Z86.711 Personal history of pulmonary embolism; Z86.718 Personal history of other venous thrombosis and embolism; Z80.1 Family history of malignant neoplasm of trachea, bronchus and lung
CPT/HCPCS: 36415; 36430; 43239; 45378; 71045; 71275; 74177; 80053; 80324; 80345; 80346; 80349; 80353; 80358; 80361; 82550; 82553; 82728; 82746; 83615; 83690; 83735; 83992; 84100; 84466; 84484; 85025; 85027; 85044; 85610; 85730; 86850; 86900; 86920; 88305; 88312; 88342; 93005; 93306; 93970; 96361; 96374; 96376; 99285; C9113; G0378; J2704; J7040; P9016; Q9967

== ENCOUNTER 2017-12-19 22:46 | Emergency (ER) | payer MEDICAID ==
[2017-12-19 22:56] VITALS: BMI 34.5
[2017-12-19 22:59] VITALS: RESP 20
--- NOTE | 2017-12-19 22:59 | ED PDOC ---
Arrival/HPI - General Time Seen by Provider: 12/19/17 22:52 Historian: Patient - History of Present Illness Narrative History of Present Illness (Text): 12/19/17 22:56 47yo male with pmhx of DVT who present with complaint of right lower leg pain since earlier today. States his PMD stopped his anticoagulant months ago. He states he is not sure if he injured the leg 3days ago, while driving his bike but the pain started today. He denies chest pain, SOB, diaphoresis, edema, recent travel/surgery, fever, redness, any other complaint. Past Medical History - Provider Review Nursing Documentation Reviewed: Yes - Infectious Disease Hx of Infectious Diseases: None - Tetanus Immunization Tetanus Immunization: Unknown - Cardiac Hx Cardiac Disorders: Yes Hx Hypertension: Yes Hx Peripheral Vascular Disease: Yes - Pulmonary Hx Bronchitis: Yes Hx Pulmonary Embolism: Yes - Neurological Hx Neurological Disorder: Yes (SYNCOPE 03-25-16) - HEENT Hx HEENT Disorder: No - Renal Hx Renal Disorder: No - Endocrine/Metabolic Hx Endocrine Disorders: No - Hematological/Oncological Hx Blood Transfusions: Yes Hx Blood Transfusion Reaction: No - Integumentary Hx Dermatological Disorder: Yes (TATTOOS) Hx Melanoma: Yes Other/Comment: HAS SUTURES L SIDE OF FACE - Musculoskeletal/Rheumatological Hx Musculoskeletal Disorders: Yes Hx Degenerative Joint Disease: Yes Hx Falls: Yes Other/Comment: CERVICAL AND LUMBAR RADICULOPATHY - Gastrointestinal Hx Gastrointestinal Disorders: Yes Hx Diverticulitis: Yes Hx Gastroesophageal Reflux: Yes Other/Comment: GASTRITIS, HIATAL HERNIA - Genitourinary/Gynecological Hx Genitourinary Disorders: No - Psychiatric Hx Psychophysiologic Disorder: Yes (cocaine use) Hx Depression: No Hx Emotional Abuse: No Hx Physical Abuse: No Hx Substance Use: Yes (ADMITS TO CURRENT USE OF COCAINE) - Surgical History Other/Comment: IVC FILTER stent left groin 2016 - Anesthesia Hx Anesthesia Reactions: No Hx Malignant Hyperthermia: No - Suicidal Assessment Feels Threatened In Home Enviroment: No Family/Social History - Physician Review Nursing Documentation Reviewed: Yes Family/Social History: Unknown Family HX Smoking Status: Never Smoked Hx Alcohol Use: Yes (ETOH 2-3 X WEEK) Hx Substance Use: Yes (ADMITS TO CURRENT USE OF COCAINE) Hx Substance Use Treatment: No Allergies/Home Meds Allergies/Adverse Reactions: Allergies iron sucrose complex [From Venofer] Allergy (Severe, Verified 12/19/17 22:59) RASH, ITCHING Review of Systems - Physician Review All systems were reviewed & negative as marked: Yes - Review of Systems Constitutional: Normal Eyes: Normal ENT: Normal Respiratory: Normal Cardiovascular: Normal Gastrointestinal: Normal Genitourinary Male: Normal Musculoskeletal: Arthralgias (right lower leg) Skin: Normal Neurological: Normal Endocrine: Normal Hemo/Lymphatic: Normal Psychiatric: Normal Physical Exam Vital Signs Reviewed: Yes Vital Signs Temp Pulse Resp BP Pulse Ox 12/19/17 23:05 147/93 H 12/19/17 22:56 98.4 F 100 H 20 99 Temperature: Afebrile Blood Pressure: Normal Pulse: Regular Respiratory Rate: Normal Appearance: Positive for: Well-Appearing, Non-Toxic, Comfortable Pain Distress: None Mental Status: Positive for: Alert and Oriented X 3 - Systems Exam Head: Present: Atraumatic, Normocephalic Pupils: Present: PERRL Extroacular Muscles: Present: EOMI Conjunctiva: Present: Normal Mouth: Present: Moist Mucous Membranes Neck: Present: Normal Range of Motion Respiratory/Chest: Present: Clear to Auscultation, Good Air Exchange. No: Respiratory Distress, Accessory Muscle Use Cardiovascular: Present: Regular Rate and Rhythm, Normal S1, S2. No: Murmurs Abdomen: No: Tenderness, Distention, Peritoneal Signs Back: Present: Normal Inspection Upper Extremity: Present: Normal Inspection. No: Cyanosis, Edema Lower Extremity: Present: CALF TENDERNESS (Right calf), NORMAL PULSES, Normal ROM, Tenderness (right lower leg/ankle), Neurovascularly Intact. No: Edema, Abdi's Sign, Swelling, Erythema, Temperature Abnormalties Neurological: Present: GCS=15, CN II-XII Intact, Speech Normal Skin: Present: Warm, Dry, Normal Color. No: Rashes Psychiatric: Present: Alert, Oriented x 3, Normal Insight, Normal Concentration Medical Decision Making ED Course and Treatment: 12/20/17 00:22 PT in ED for stated history. Right ankle xray - Heel spur. No acute fracture/dislocation Per US tech - Doppler is negative for DVT Result DW the pt. Pt states pain has been intermittent for a while now, but the pain is worse today. note that pain radiates from his heel up and usually worse with weight bearing. He was advised to f/u with a endoscopy registered nurse. Decadron was ordered in ED. He will be Dc home with a rx of Naprosyn. - RAD Interpretation Radiology Orders: 12/19/17 22:59 DUPLEX LOWER EXTRM VEIN RIGHT [US] Stat 12/19/17 23:00 ANKLE RIGHT 3 VIEWS ROUTINE [RAD] Stat - Medication Orders Current Medication Orders: Discontinued Medications Tramadol HCl (Ultram) 50 mg PO STAT STA Stop: 12/19/17 23:05 Last Admin: 12/19/17 23:18 Dose: 50 mg MAR Pain Assessment Document 12/19/17 23:18 RG (Rec: 12/19/17 23:20 [id number]) Pain Reassessment Is this a pain reassessment? Yes Presence of Pain Presence of Pain Yes Location Left, Right or Bilateral Right Pain Location Body Site Foot Description Description Sharp Intensity of Pain at present 5 Aggravating Factors Standing Walking Disposition/Present on Arrival - Present on Arrival Any Indicators Present on Arrival: No History of DVT/PE: No History of Uncontrolled Diabetes: No Urinary Catheter: No History Surgical Site Infection Following: None - Disposition Have Diagnosis and Disposition been Completed?: Yes Diagnosis: Leg pain Disposition: HOME/ ROUTINE Disposition Time: 00:30 Patient Plan: Discharge Patient Problems: Current Active Problems Problem Status Onset Leg pain Acute Condition: STABLE Discharge Instructions (ExitCare): Muscle and Bone Pain (DC) Additional Instructions: Follow up with a endoscopy registered nurse Return to ED for any new symptoms Prescriptions: Naproxen [Naprosyn] 500 mg PO BID #20 tablet Referrals: Kingsley Griffith DPM [Staff Provider] - Follow up with primary
[2017-12-20 00:55] VITALS: BP 146/80; PULSE 99; TEMP 98.7; O2SAT 100
--- NOTE | 2017-12-20 08:42 | RAD ---
PROCEDURE: Right Ankle Radiographs. HISTORY: ankle pain COMPARISON: None FINDINGS: BONES: Normal. No fracture. JOINTS: Normal. No osteoarthritis. Ankle mortise maintained. Talar dome intact SOFT TISSUES: Normal. OTHER FINDINGS: None. IMPRESSION: Negative study
--- NOTE | 2017-12-20 17:17 | US ---
PROCEDURE: Right lower extremity venous US HISTORY: Leg pain and swelling. Evaluate for DVT. PHYSICIAN(S): Jose Cantrell M.D. TECHNIQUE: Duplex sonography and color-flow Doppler with graded compression were used to evaluate the deep venous system of the right lower extremity. FINDINGS: The visualized deep venous system of the right lower extremity is sonographically normal and compressible. Normal waveforms and augmentation are seen. There is no sonographic evidence for deep venous thrombosis in the visualized segments of the right lower extremity. IMPRESSION: 1. No sonographic evidence for deep venous thrombosis in the visualized segments of the right lower extremity.
== END 2017-12-20 00:55 | disposition home or self-care (01) ==
LOC: ED 22:46
DX: M79.661 Pain in right lower leg (principal); I10 Essential (primary) hypertension
CPT/HCPCS: 73610; 93971; 96374; 99284; J1100

== ENCOUNTER 2018-03-31 16:23 | Emergency (ER) | payer MEDICAID ==
[2018-03-31 16:24] VITALS: BMI 34.5
[2018-03-31 16:51] VITALS: BP 101/53; PULSE 103; RESP 18; TEMP 98.2; O2SAT 99
--- NOTE | 2018-03-31 17:00 | ED PDOC ---
Arrival/HPI - General Chief Complaint: Lower Extremity Problem/Injury Time Seen by Provider: 03/31/18 16:46 - History of Present Illness Narrative History of Present Illness (Text): 03/31/18 16:59 47 yo male, hx of dvt on eliquis presetns with foot pain x 1 week. h/ o of heel spur. no trauma. noted recently in er with xr showing heel spur. complaint with elqius no leg pain. in er, "requesting shot of cortisone"./ Past Medical History - Infectious Disease Hx of Infectious Diseases: None - Tetanus Immunization Tetanus Immunization: Unknown - Cardiac Hx Cardiac Disorders: Yes Hx Hypertension: Yes Hx Peripheral Vascular Disease: Yes - Pulmonary Hx Bronchitis: Yes Hx Pulmonary Embolism: Yes - Neurological Hx Neurological Disorder: Yes (SYNCOPE 03-25-16) - HEENT Hx HEENT Disorder: No - Renal Hx Renal Disorder: No - Endocrine/Metabolic Hx Endocrine Disorders: No - Hematological/Oncological Hx Blood Transfusions: Yes Hx Blood Transfusion Reaction: No - Integumentary Hx Dermatological Disorder: Yes (TATTOOS) Hx Melanoma: Yes Other/Comment: HAS SUTURES L SIDE OF FACE - Musculoskeletal/Rheumatological Hx Musculoskeletal Disorders: Yes Hx Degenerative Joint Disease: Yes Hx Falls: Yes Other/Comment: CERVICAL AND LUMBAR RADICULOPATHY - Gastrointestinal Hx Gastrointestinal Disorders: Yes Hx Diverticulitis: Yes Hx Gastroesophageal Reflux: Yes Other/Comment: GASTRITIS, HIATAL HERNIA - Genitourinary/Gynecological Hx Genitourinary Disorders: No - Psychiatric Hx Psychophysiologic Disorder: Yes (cocaine use) Hx Depression: No Hx Emotional Abuse: No Hx Physical Abuse: No Hx Substance Use: Yes (ADMITS TO CURRENT USE OF COCAINE) - Surgical History Other/Comment: IVC FILTER stent left groin 2017 - Anesthesia Hx Anesthesia: Yes Hx Anesthesia Reactions: No Hx Malignant Hyperthermia: No - Suicidal Assessment Feels Threatened In Home Enviroment: No Family/Social History Family/Social History: Unknown Family HX Smoking Status: Never Smoked Hx Alcohol Use: Yes (ETOH 2-3 X WEEK) Hx Substance Use: Yes (ADMITS TO CURRENT USE OF COCAINE) Hx Substance Use Treatment: No Allergies/Home Meds Allergies/Adverse Reactions: Allergies iron sucrose complex [From Venofer] Allergy (Severe, Verified 12/19/17 22:59) RASH, ITCHING Review of Systems - Review of Systems Constitutional: Normal Eyes: Normal ENT: Normal Respiratory: Normal Cardiovascular: Normal Gastrointestinal: Normal Genitourinary Male: Normal Musculoskeletal: Other (foot pain) Skin: Normal Neurological: Normal Endocrine: Normal Hemo/Lymphatic: Normal Psychiatric: Normal Physical Exam Vital Signs Temp Pulse Resp BP Pulse Ox 03/31/18 16:50 98.2 F 103 H 18 101/53 L 99 Temperature: Afebrile Blood Pressure: Normal Pulse: Regular Respiratory Rate: Normal Appearance: Positive for: Well-Appearing, Non-Toxic, Comfortable Pain Distress: None Mental Status: Positive for: Alert and Oriented X 3 - Systems Exam Head: Present: Atraumatic, Normocephalic Pupils: Present: PERRL Extroacular Muscles: Present: EOMI Conjunctiva: Present: Normal Mouth: Present: Moist Mucous Membranes Neck: Present: Normal Range of Motion Respiratory/Chest: Present: Clear to Auscultation, Good Air Exchange. No: Respiratory Distress, Accessory Muscle Use Cardiovascular: Present: Regular Rate and Rhythm, Normal S1, S2. No: Murmurs Abdomen: No: Tenderness, Distention, Peritoneal Signs Back: Present: Normal Inspection Upper Extremity: Present: Normal Inspection. No: Cyanosis, Edema Lower Extremity: Present: Tenderness (left heel), Swelling (mild), Neurovascularly Intact. No: Edema Neurological: Present: GCS=15, CN II-XII Intact, Speech Normal Skin: Present: Warm, Dry, Normal Color. No: Rashes Psychiatric: Present: Alert, Oriented x 3, Normal Insight, Normal Concentration Medical Decision Making ED Course and Treatment: 03/31/18 17:02 in er requesting "shot of cortisone". no new trauma. recent xr shows heel spur. no indication for repeat imaging./ advise outpt fu with podiatry. 03/31/18 18:28 - Medication Orders Current Medication Orders: Discontinued Medications Ketorolac Tromethamine (Toradol) 30 mg IM STAT STA Stop: 03/31/18 16:55 Disposition/Present on Arrival - Present on Arrival Any Indicators Present on Arrival: No History of DVT/PE: No History of Uncontrolled Diabetes: No Urinary Catheter: No History of Decub. Ulcer: No History Surgical Site Infection Following: None - Disposition Have Diagnosis and Disposition been Completed?: Yes Diagnosis: Foot pain Disposition: HOME/ ROUTINE Disposition Time: 17:05 Condition: STABLE Discharge Instructions (ExitCare): Heel Pain (Caused by Plantar Fasciitis) Additional Instructions: return to er with worsening symptoms or concerns. Prescriptions: RX: Naproxen 500 mg PO BID PRN #14 tablet PRN Reason: Pain, Mild (1-3) Referrals: Manasa Summers DPM [Staff Provider] - Follow up with primary Forms: Kaseya (Tajik)
== END 2018-03-31 17:40 | disposition home or self-care (01) ==
LOC: ED 16:23
DX: M79.672 Pain in left foot (principal)
CPT/HCPCS: 96372; 99283; J1885